=== PATIENT | female | born 1970 | race Hispanic/Latino ===

== ENCOUNTER 2021-02-04 18:24 | Inpatient (IN) | payer SELFPAY ==
[2021-02-04] MEDS ORDERED: SODIUM CHLORIDE 0.9% 1000 ML 1,000 ML IV ONE (20:01)
--- NOTE | 2021-02-04 20:19 | Event Note ---
ED Screening Note Date of service: 02/04/21 Time: 20:02 ED Screening Note: 51-year-old female patient with history of gastric bypass surgery February 2020 presents to the emergency department via EMS with complaints of near syncope occurring today. Patient states she has been experiencing similar episodes on a recurrent basis for approximately 11 months since she underwent bypass surgery. These episodes have increased in frequency. Over the course of the last week, patient has experienced 3 of these episodes. Today, patient nearly fell, prompting her to come to the emergency department. Patient has not been evaluated by primary care provider at [facility] for this issue but a definitive diagnosis has not been established. Patient states she takes no medications on a daily basis. Tachycardic in triage. Blood pressure 103/66 in triage. General: Awake, appropriately interactive, no acute distress. Appears globally weak. Neck: Supple. Full range of motion intact. Cardiovascular: Normal peripheral perfusion. Pulmonary: No respiratory distress. Patient is speaking normally without use of accessory muscles. Skin: No apparent rashes or lesions. Neurological: No facial asymmetry. Speech is clear. Follows commands. Patient is alert and oriented. Musculoskeletal: Moves all four extremities spontaneously with normal range of motion. Psych: Cooperative. Appropriate mood and affect. 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 EKG, orthostats, labs, urinalysis, chest x-ray ordered. I have greeted and performed a focused rapid initial assessment of this patient. A comprehensive ED assessment and evaluation of the patient, analysis of all test results, and completion of the medical decision-making process will be conducted by additional ED providers. This initial assessment/diagnostic orders/clinical plan/treatment(s) is/are subject to change based on patients health status, clinical progression and re-assessment. Further treatment and workup at subsequent clinical provider's discretion. Patient/guardian urged not to elope from the ED as their condition may be serious if not clinically assessed and managed.
--- NOTE | 2021-02-04 20:33 | XRay Report ---
CHEST 1 VIEW 02/04/2021 8:20 PM INDICATION / CLINICAL INFORMATION: Syncope, shortness of breath. COMPARISON: None available. FINDINGS: SUPPORT DEVICES: None. HEART / MEDIASTINUM: No significant abnormality. LUNGS / PLEURA: No significant pulmonary abnormality. No significant pleural effusion. No pneumothora x. ADDITIONAL FINDINGS: No significant additional findings. IMPRESSION: 1. No acute abnormality of the chest. Signer Name: Alberto Patterson MD Signed: 02/04/2021 8:28 PM Workstation Name: [id number]
[2021-02-04 21:08] LABS: Hematocrit 33.4 % (30.3-42.9); Hemoglobin 11.6 gm/dl (10.1-14.3); Mean Corpuscular HGB Conc 35 % (30-34); Mean Corpuscular Volume 98 fl (79-97); Platelet Count 307 K/mm3 (140-440)
[2021-02-04 21:15] LABS: Basophils % (Auto) 0.7 % (0.0-1.8); Eosinophils # (Auto) 0.1 K/mm3 (0.0-0.4); Eosinophils % (Auto) 1.9 % (0.0-4.3); Lymphocytes # (Auto) 1.5 K/mm3 (1.2-5.4); Lymphocytes % (Auto) 31.5 % (13.4-35.0); Monocytes # (Auto) 0.6 K/mm3 (0.0-0.8); Monocytes % (Auto) 12.2 % (0.0-7.3)
[2021-02-04 21:19] LABS: Total Cells Counted 100
[2021-02-04 21:20] LABS: RBC Morphology Normal
[2021-02-04 21:38] LABS: Alanine Aminotransferase 27 units/L (7-56); Albumin 2.6 g/dL (3.9-5); Blood Urea Nitrogen 8 mg/dL (7-17); Calcium 8.1 mg/dL (8.4-10.2); Hemolysis Index 0
[2021-02-04 21:41] LABS: BUN/Creatinine Ratio 13
[2021-02-04] MEDS ORDERED: POTASSIUM CHLORIDE ER 20 MEQ TAB PO ONE (21:59)
--- NOTE | 2021-02-04 22:09 | Emergency Department Report ---
ED Dizziness HPI - General Chief Complaint: Syncope Stated Complaint: SOB Time Seen by Provider: 02/04/21 21:20 Source: patient Mode of arrival: Stretcher Limitations: No Limitations - History of Present Illness Initial Comments: 51-year-old female, history of gastric bypass surgery 1 year ago, presents to ED for evaluation. Initial triage note states that patient is here for difficulty breathing. I spoke with patient and she states that she "always" has shortness of breath and that she has not had any increase in her shortness of breath. Patient told the midlevel during her medical screening that she is here for dizziness and near syncope over the past week. 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 She reports she has been dizzy since her fall. Patient reports dizziness is worse with standing. Patient also states that she has been having some trouble remembering things. Patient reports that she has had some nausea and vomiting, however it occurs after every meal, and that has been happening ever since her surgery last year. Patient reports alcohol use, denies any drug use. MD Complaint: dizziness, lightheadedness -: unknown Description: lightheadedness, near-syncope History of Trauma: Yes Severity: moderate Improves With: remaining still Worsens With: position Associated Symptoms: confusion, shortness of breath. denies: chest pain, fever/chills - Related Data Home Medications Medication Instructions Recorded Confirmed Last Taken No Known Home Medications [No 02/05/21 02/05/21 Unknown Reported Home Medications] Allergies Allergy/AdvReac Type Severity Reaction Status Date / Time No Known Allergies Allergy Unverified 02/04/21 18:30 ED Review of Systems ROS: Stated complaint: SOB Other details as noted in HPI Comment: All other systems reviewed and negative Constitutional: denies: fever Respiratory: shortness of breath Cardiovascular: denies: chest pain Gastrointestinal: nausea, vomiting Neurological: headache ED Past Medical Hx - Medications Home Medications: Home Medications Medication Instructions Recorded Confirmed Last Taken Type No Known Home Medications [No 02/05/21 02/05/21 Unknown History Reported Home Medications] ED Physical Exam - General Limitations: No Limitations General appearance: alert, in no apparent distress - Head Head exam: Present: atraumatic, normocephalic - Eye Eye exam: Present: normal appearance, EOMI - ENT ENT exam: Present: mucous membranes moist - Neck Neck exam: Present: normal inspection - Respiratory Respiratory exam: Present: normal lung sounds bilaterally. Absent: respiratory distress - Cardiovascular Cardiovascular Exam: Present: normal rhythm, tachycardia - GI/Abdominal GI/Abdominal exam: Present: soft. Absent: distended, tenderness - Extremities Exam Extremities exam: Present: normal inspection - Neurological Exam Neurological exam: Present: alert, oriented X3 (But seems somewhat confused), CN II-XII intact. Absent: motor sensory deficit - Psychiatric Psychiatric exam: Present: normal affect, normal mood - Skin Skin exam: Present: warm, dry, intact, normal color ED Course Vital Signs 02/04/21 02/04/21 02/04/21 18:28 20:47 20:53 Temperature 99.6 F Pulse Rate 103 H 99 H 118 H Respiratory 18 18 Rate Blood Pressure 134/79 Blood Pressure 103/66 [Left] O2 Sat by Pulse 98 98 98 Oximetry 02/04/21 02/05/21 02/05/21 22:30 00:30 02:00 Temperature 98 F Pulse Rate 82 82 88 Respiratory 18 18 18 Rate Blood Pressure 121/76 Blood Pressure 110/78 122/60 [Left] O2 Sat by Pulse 99 99 100 Oximetry 02/05/21 02/05/21 02/05/21 06:00 07:57 08:47 Temperature 98.6 F Pulse Rate 91 H 84 Respiratory 18 17 16 Rate Blood Pressure 133/76 Blood Pressure 124/64 114/89 [Left] O2 Sat by Pulse 100 100 Oximetry ED Medical Decision Making - Lab Data Result diagrams: 02/05/21 05:21 02/05/21 18:02 - Radiology Data Radiology results: report reviewed, image reviewed - Medical Decision Making 51-year-old female presents to ED with dizziness and lightheadedness. Patient found to have orthostatic vital signs. IV fluids administered. Patient also found to be severely hypokalemic with potassium level of 2.0. Magnesium level also low. Both were repleted. Chest x-ray and CT head negative for any acute findings. CT abdomen pelvis showed possible mild sigmoid colitis. Patient denies any abdominal pain or diarrhea. Low suspicion for colitis. Patient will be admitted to hospitalist, Dr. Clark, for further management. - Differential Diagnosis Dehydration, intracranial injury, intoxication Critical care attestation.: If time is entered above; I have spent that time in minutes in the direct care of this critically ill patient, excluding procedure time. ED Disposition Clinical Impression: Hypokalemia, Orthostatic hypotension Disposition: 09 ADMITTED INPATIENT Is pt being admited?: Yes Condition: Stable Time of Disposition: 23:41
--- NOTE | 2021-02-04 22:39 | Cat Scan Report ---
CT HEAD WITHOUT CONTRAST INDICATION / CLINICAL INFORMATION: dizziness, fall. TECHNIQUE: All CT scans at this location are performed using CT dose reduction for ALARA by means of automated exposure control. COMPARISON: None available. FINDINGS: HEMORRHAGE: None. EXTRA-AXIAL SPACES: Normal in size and morphology for the patient's age. VENTRICULAR SYSTEM: Normal in size and morphology for the patient's age. CEREBRAL PARENCHYMA: No significant abnormality. No acute territorial infarct. MIDLINE SHIFT / HERNIATION: None. CEREBELLUM / BRAINSTEM: No significant abnormality. ORBITS: Normal as visualized. SOFT TISSUES: No significant abnormality. SKULL: No significant abnormality. PARANASAL SINUSES / MASTOID AIR CELLS: There is mucosal thickening in the visualized paranasal sinuse s. ADDITIONAL FINDINGS: None. IMPRESSION: 1. No acute intracranial abnormality. 2. Paranasal sinus disease. Signer Name: Fletcher Tan DO Signed: 02/04/2021 10:35 PM Workstation Name: [id number]
--- NOTE | 2021-02-04 22:45 | Cat Scan Report ---
CT ABDOMEN AND PELVIS WITH CONTRAST INDICATION / CLINICAL INFORMATION: vomiting. TECHNIQUE: Axial CT images were obtained through the abdomen and pelvis after an unspecified amount and type of IV contrast. All CT scans at this location are performed using CT dose reduction for ALARA by means of automated exposure control. COMPARISON: None available. FINDINGS: LOWER CHEST: No significant abnormality. LIVER: There is generalized osteoporosis. A round area of focally decreased attenuation greater than that of the rest of the liver is seen posteriorly and medially along the right hepatic lobe on image 47 of series 2 measuring 3.4 x 3.2 cm. No other significant abnormality. GALLBLADDER: Prior cholecystectomy. BILE DUCTS: No significant abnormality. PANCREAS: No significant abnormality. SPLEEN: No significant abnormality. ADRENALS: No significant abnormality. KIDNEYS / URETERS: A left upper renal pole cyst measures 1.3 cm without suspicious features. No other significant abnormality. STOMACH / SMALL BOWEL: There has been prior gastric bypass surgery. No significant abnormality. COLON: There is nonspecific mild thickening of the sigmoid colon without other significant abnormalit ies. APPENDIX: No significant abnormality. PERITONEUM: No free fluid. No free air. No fluid collection. LYMPH NODES: No significant adenopathy. AORTA / ARTERIES: No significant abnormality. IVC / VEINS: No significant abnormality. URINARY BLADDER: No significant abnormality. REPRODUCTIVE ORGANS: No significant abnormality. ADDITIONAL FINDINGS: None. BONES: No acute findings. There are mild degenerative changes of the spine. IMPRESSION: 1. . Hepatic steatosis with an area of further focal decreased attenuation in the right hepatic lobe as above that is favored to represent asymmetric focal fat infiltration. A nonemergent CT or MRI with and without contrast (liver protocol) would be helpful for further evaluation. 2. Possible mild sigmoid colitis. 3. Additional findings as above. Signer Name: Alberto Patterson MD Signed: 02/04/2021 10:41 PM Workstation Name: [id number]
[2021-02-04] MEDS ORDERED: MAGNESIUM SULFATE 2 GM/50 ML BAG IV ONE (23:14)
[2021-02-04] MEDS ORDERED: ONDANSETRON 4 MG/2 ML INJ IV PRN (23:44)
[2021-02-04] MEDS ORDERED: MAGNESIUM HYDROXIDE (MOM) ORAL LIQD UDC PO PRN (23:44)
[2021-02-04] MEDS ORDERED: MORPHINE 4 MG/1 ML INJ IV PRN (23:44)
[2021-02-04] MEDS ORDERED: MORPHINE 2 MG/1 ML INJ IV PRN (23:44)
[2021-02-04] MEDS ORDERED: ACETAMINOPHEN 325 MG TAB PO PRN (23:44)
[2021-02-04] MEDS ORDERED: SODIUM CHLORIDE 0.9% 1000 ML 1,000 ML IV SCH (23:45)
--- NOTE | 2021-02-04 23:52 | History and Physical Report ---
History of Present Illness Date of examination: 02/04/21 Date of admission: 02/04/2021 Chief complaint: Lightheadedness Near syncope History of present illness: 51-year-old white female with known history of gastric bypass about a year ago presenting to the emergency room today complaining of dizziness, shortness of breath and near syncope. Symptoms has been ongoing for about a week. Patient states she feels dizzy while standing. She has had nausea and vomiting over the past few days and intermittent bouts of diarrhea. She also indicates that she has had low-grade fever at home. She denies any headache and no diaphoresis. Patient denies any cough or chest pain. No hematuria or dysuria. Patient has been in contact with her family member who has had flu-like symptoms lately but denies any recent travel. Patient admits that she has not been vaccinated against COVID-19. Upon arrival in the emergency room patient was found to be slightly tachycardic and also orthostatic. Work-up in the emergency room today reveals hypokalemia of 2.0, hypomagnesemia of 1.5 and mild metabolic acidosis. Chest x-ray and CT scan of the head were unremarkable. CT of the abdomen and pelvis shows possible mild sigmoid colitis. Past History Past Medical History: No medical history Past Surgical History: No surgical history Social history: no significant social history Medications and Allergies Allergies Allergy/AdvReac Type Severity Reaction Status Date / Time No Known Allergies Allergy Unverified 02/04/21 18:30 Home Medications Medication Instructions Recorded Confirmed Last Taken Type No Known Home Medications [No 02/05/21 02/05/21 Unknown History Reported Home Medications] Active Meds: Active Medications Acetaminophen (Acetaminophen 325 Mg Tab) 650 mg PO Q4H PRN PRN Reason: Pain MILD(1-3)/Fever >100.5/SAENZ Heparin Sodium (Porcine) (Heparin 5,000 Unit/1 Ml Vial) 5,000 unit SUB-Q Q8HR [place] Sodium Chloride (Nacl 0.9% 1000 Ml) 1,000 mls @ 125 mls/hr IV DIRECT [place] Magnesium Hydroxide (Magnesium Hydroxide (Mom) Oral Liqd Udc) 30 ml PO Q4H PRN PRN Reason: Constipation Morphine Sulfate (Morphine 2 Mg/1 Ml Inj) 2 mg IV Q4H PRN PRN Reason: Pain, Moderate (4-6) Morphine Sulfate (Morphine 4 Mg/1 Ml Inj) 4 mg IV Q4H PRN PRN Reason: Pain , Severe (7-10) Ondansetron HCl (Ondansetron 4 Mg/2 Ml Inj) 4 mg IV Q8H PRN PRN Reason: Nausea And Vomiting Sodium Chloride (Sodium Chloride 0.9% 10 Ml Flush Syringe) 10 ml IV BID [place] Sodium Chloride (Sodium Chloride 0.9% 10 Ml Flush Syringe) 10 ml IV PRN PRN PRN Reason: LINE FLUSH Review of Systems Constitutional: no fever, no chills Ears, nose, mouth and throat: no nasal congestion, no sore throat Cardiovascular: no chest pain, no palpitations Respiratory: no cough, no shortness of breath Gastrointestinal: nausea, vomiting, diarrhea, hematemesis, no abdominal pain, no hematochezia Genitourinary Female: no pelvic pain, no flank pain, no dysuria, no hematuria Musculoskeletal: no neck pain, no low back pain Integumentary: no rash, no pruritis Neurological: syncope, no headaches, no confusion Psychiatric: no anxiety, no depression Endocrine: no polyphagia, no polydipsia, no polyuria, no nocturia Exam - Constitutional Vitals: Temp Pulse Resp BP Pulse Ox 99.6 F 118 H 18 134/79 98 02/04/21 18:28 02/04/21 20:53 02/04/21 20:47 02/04/21 20:47 02/04/21 20:53 General appearance: Present: no acute distress, well-nourished - EENT Eyes: Present: PERRL, EOM intact, scleral icterus ENT: hearing intact, clear oral mucosa, dentition normal - Neck Neck: Present: supple, normal ROM - Respiratory Respiratory effort: normal Respiratory: bilateral: CTA - Cardiovascular Rhythm: regular Heart Sounds: Present: S1 & S2. Absent: gallop, systolic murmur, diastolic murmur, rub, click - Extremities Extremities: no ischemia, pulses intact, pulses symmetrical, No edema, normal temperature, normal color, Full ROM Peripheral Pulses: within normal limits - Abdominal General gastrointestinal: Present: soft, non-tender, non-distended, normal bowel sounds. Absent: mass - Integumentary Integumentary: Present: clear, warm, dry, normal turgor. Absent: rash - Musculoskeletal Musculoskeletal: strength equal bilaterally - Psychiatric Psychiatric: appropriate mood/affect, intact judgment & insight, memory intact, cooperative - Neurologic Neurologic: CNII-XII intact, no focal deficits, moves all extremities HEART Score - HEART Score Troponin: Troponin T < 0.010 ng/mL (0.00-0.029) 02/04/21 20:42 Results - Labs CBC & Chem 7: 02/05/21 05:21 02/05/21 18:02 Labs: Abnormal lab results 02/04/21 02/04/21 02/04/21 Range/Units 20:42 20:42 22:29 RBC 3.40 L (3.65-5.03) M/mm3 MCV 98 H (79-97) fl MCH 34 H (28-32) pg MCHC 35 H (30-34) % [place] % (Auto) 12.2 H (0.0-7.3) % Monocytes % (Manual) 13.0 H (0.0-7.3) % Potassium 2.0 L* (3.6-5.0) mmol/L Carbon Dioxide 17 L (22-30) mmol/L Glucose 128 H (65-100) mg/dL Calcium 8.1 L (8.4-10.2) mg/dL Magnesium 1.40 L 1.50 L (1.7-2.3) mg/dL AST 81 H (5-40) units/L Albumin 2.6 L (3.9-5) g/dL Salicylates (2.8-20.0) mg/dL Acetaminophen (10.0-30.0) ug/mL 02/04/21 02/04/21 Range/Units 22:29 22:29 RBC (3.65-5.03) M/mm3 MCV (79-97) fl MCH (28-32) pg MCHC (30-34) % [place] % (Auto) (0.0-7.3) % Monocytes % (Manual) (0.0-7.3) % Potassium (3.6-5.0) mmol/L Carbon Dioxide (22-30) mmol/L Glucose (65-100) mg/dL Calcium (8.4-10.2) mg/dL Magnesium (1.7-2.3) mg/dL AST (5-40) units/L Albumin (3.9-5) g/dL Salicylates < 0.3 L (2.8-20.0) mg/dL Acetaminophen 5.0 L (10.0-30.0) ug/mL Assessment and Plan - Patient Problems (1) Orthostatic hypotension Current Visit: No Status: Inactive Plan to address problem: Possibly secondary to volume depletion. We will monitor vital signs closely. Patient will be placed on IV fluid. (2) Hypokalemia Current Visit: No Status: Inactive Plan to address problem: Potassium will be repleted and will monitor chemistry. (3) Hypomagnesemia Current Visit: No Status: Acute Plan to address problem: Magnesium will be repleted and will monitor magnesium level. (4) Colitis Current Visit: No Status: Acute Plan to address problem: We will continue patient on IV fluid. May consider initiation of antibiotics and GI consult if diarrhea does not subside. (5) DVT prophylaxis Current Visit: No Status: Acute Plan to address problem: Patient placed on subcutaneous heparin. (6) Full code status Current Visit: No Status: Acute Plan to address problem: Patient is full code.
[2021-02-05] MEDS: HEPARIN 5,000 UNIT/1 ML VIAL SUB-Q SCH ×3 (06:00→23:03)
[2021-02-05 06:11] LABS: Basophils % (Auto) 0.9 % (0.0-1.8); Eosinophils # (Auto) 0.1 K/mm3 (0.0-0.4); Eosinophils % (Auto) 2.5 % (0.0-4.3); Hematocrit 30.8 % (30.3-42.9); Hemoglobin 10.2 gm/dl (10.1-14.3); Lymphocytes # (Auto) 1.5 K/mm3 (1.2-5.4); Lymphocytes % (Auto) 34.1 % (13.4-35.0); Mean Corpuscular HGB Conc 33 % (30-34); Mean Corpuscular Volume 99 fl (79-97); Monocytes # (Auto) 0.5 K/mm3 (0.0-0.8); Monocytes % (Auto) 11.8 % (0.0-7.3); Platelet Count 276 K/mm3 (140-440); Red Blood Count 3.12 M/mm3 (3.65-5.03); Red Cell Distribution Width 15.1 % (13.2-15.2)
[2021-02-05 06:25] LABS: Blood Urea Nitrogen 7 mg/dL (7-17); Calcium 7.5 mg/dL (8.4-10.2); Hemolysis Index 3
[2021-02-05 06:26] LABS: BUN/Creatinine Ratio 18
[2021-02-05 06:29] LABS: INR 0.93 (0.87-1.13)
--- NOTE | 2021-02-05 08:59 | Progress Note ---
Assessment and Plan Assessment and plan: Acute colitis. Orthostatic hypotension Severe hypokalemia Hypomagnesemia 02/05/2021. CT scan of the abdomen pelvis revealed mild sigmoid colitis. We will start IV antibiotics of Levaquin and Flagyl. Follow-up stool culture and fecal leukocytes. Patient will have repletion of potassium and follow-up BMP later today and in a.m. Continue IV fluid hydration for orthostasis. Magnesium repleted. Anticipate discharge in a.m. History Interval history: No new issues overnight Hospitalist Physical - Constitutional Vitals: Temp Pulse Resp BP Pulse Ox 98.6 F 84 16 133/76 100 02/05/21 08:47 02/05/21 07:57 02/05/21 08:47 02/05/21 08:47 02/05/21 07:57 General appearance: Present: no acute distress, well-nourished - EENT Eyes: Present: PERRL, EOM intact ENT: hearing intact, clear oral mucosa, dentition normal - Neck Neck: Present: supple, normal ROM - Respiratory Respiratory effort: normal Respiratory: bilateral: CTA - Cardiovascular Rhythm: regular Heart Sounds: Present: S1 & S2. Absent: gallop, rub - Extremities Extremities: no ischemia, No edema, Full ROM - Abdominal General gastrointestinal: soft, non-tender, non-distended, normal bowel sounds - Integumentary Integumentary: Present: clear, warm, dry - Neurologic Neurologic: CNII-XII intact, moves all extremities HEART Score - HEART Score Troponin: Troponin T < 0.010 ng/mL (0.00-0.029) 02/04/21 20:42 Results - Labs CBC & Chem 7: 02/05/21 05:21 02/05/21 05:21 Labs: Laboratory Last Values WBC 4.5 K/mm3 (4.5-11.0) 02/05/21 05:21 RBC 3.12 M/mm3 (3.65-5.03) L 02/05/21 05:21 Hgb 10.2 gm/dl (10.1-14.3) 02/05/21 05:21 Hct 30.8 % (30.3-42.9) 02/05/21 05:21 MCV 99 fl (79-97) H 02/05/21 05:21 MCH 33 pg (28-32) H 02/05/21 05:21 MCHC 33 % (30-34) 02/05/21 05:21 RDW 15.1 % (13.2-15.2) 02/05/21 05:21 Plt Count 276 K/mm3 (140-440) 02/05/21 05:21 Lymph % (Auto) 34.1 % (13.4-35.0) 02/05/21 05:21 [place] % (Auto) 11.8 % (0.0-7.3) H 02/05/21 05:21 Eos % (Auto) 2.5 % (0.0-4.3) 02/05/21 05:21 Baso % (Auto) 0.9 % (0.0-1.8) 02/05/21 05:21 Lymph # (Auto) 1.5 K/mm3 (1.2-5.4) 02/05/21 05:21 [place] # (Auto) 0.5 K/mm3 (0.0-0.8) 02/05/21 05:21 Eos # (Auto) 0.1 K/mm3 (0.0-0.4) 02/05/21 05:21 Baso # (Auto) 0.0 K/mm3 (0.0-0.1) 02/05/21 05:21 Add Manual Diff Complete 02/04/21 20:42 Total Counted 100 02/04/21 20:42 Seg Neutrophils % 50.7 % (40.0-70.0) 02/05/21 05:21 Seg Neuts % (Manual) 50.0 % (40.0-70.0) 02/04/21 20:42 Lymphocytes % (Manual) 34.0 % (13.4-35.0) 02/04/21 20:42 Monocytes % (Manual) 13.0 % (0.0-7.3) H 02/04/21 20:42 Eosinophils % (Manual) 2.0 % (0.0-4.3) 02/04/21 20:42 Basophils % (Manual) 1.0 % (0.0-1.8) 02/04/21 20:42 Nucleated RBC % Not Reportable 02/04/21 20:42 Seg Neutrophils # 2.3 K/mm3 (1.8-7.7) 02/05/21 05:21 Seg Neutrophils # Man 2.5 K/mm3 (1.8-7.7) 02/04/21 20:42 Band Neutrophils # 0.0 K/mm3 02/04/21 20:42 Lymphocytes # (Manual) 1.7 K/mm3 (1.2-5.4) 02/04/21 20:42 Abs React Lymphs (Man) 0.0 K/mm3 02/04/21 20:42 Monocytes # (Manual) 0.6 K/mm3 (0.0-0.8) 02/04/21 20:42 Eosinophils # (Manual) 0.1 K/mm3 (0.0-0.4) 02/04/21 20:42 Basophils # (Manual) 0.0 K/mm3 (0.0-0.1) 02/04/21 20:42 Metamyelocytes # 0.0 K/mm3 02/04/21 20:42 Myelocytes # 0.0 K/mm3 02/04/21 20:42 Promyelocytes # 0.0 K/mm3 02/04/21 20:42 Blast Cells # 0.0 K/mm3 02/04/21 20:42 WBC Morphology Not Reportable 02/04/21 20:42 Hypersegmented Neuts Not Reportable 02/04/21 20:42 Hyposegmented Neuts Not Reportable 02/04/21 20:42 Hypogranular Neuts Not Reportable 02/04/21 20:42 Smudge Cells Not Reportable 02/04/21 20:42 Toxic Granulation Not Reportable 02/04/21 20:42 Toxic Vacuolation Not Reportable 02/04/21 20:42 Dohle Bodies Not Reportable 02/04/21 20:42 Pelger-Huet Anomaly Not Reportable 02/04/21 20:42 Yadira Rods Not Reportable 02/04/21 20:42 Platelet Estimate Not Reportable 02/04/21 20:42 Clumped Platelets Not Reportable 02/04/21 20:42 Plt Clumps, EDTA Not Reportable 02/04/21 20:42 Large Platelets Not Reportable 02/04/21 20:42 Giant Platelets Not Reportable 02/04/21 20:42 Platelet Satelliting Not Reportable 02/04/21 20:42 Plt Morphology Comment Not Reportable 02/04/21 20:42 RBC Morphology Normal 02/04/21 20:42 Dimorphic RBCs Not Reportable 02/04/21 20:42 Polychromasia Not Reportable 02/04/21 20:42 Hypochromasia Not Reportable 02/04/21 20:42 Poikilocytosis Not Reportable 02/04/21 20:42 Anisocytosis Not Reportable 02/04/21 20:42 Microcytosis Not Reportable 02/04/21 20:42 Macrocytosis Not Reportable 02/04/21 20:42 Spherocytes Not Reportable 02/04/21 20:42 Pappenheimer Bodies Not Reportable 02/04/21 20:42 Sickle Cells Not Reportable 02/04/21 20:42 Target Cells Not Reportable 02/04/21 20:42 Tear Drop Cells Not Reportable 02/04/21 20:42 Ovalocytes Not Reportable 02/04/21 20:42 Helmet Cells Not Reportable 02/04/21 20:42 Edwards-[place] Bodies Not Reportable 02/04/21 20:42 [place] Rings Not Reportable 02/04/21 20:42 [place] Cells Not Reportable 02/04/21 20:42 Bite Cells Not Reportable 02/04/21 20:42 Crenated Cell Not Reportable 02/04/21 20:42 Elliptocytes Not Reportable 02/04/21 20:42 Acanthocytes (Spur) Not Reportable 02/04/21 20:42 Rouleaux Not Reportable 02/04/21 20:42 Hemoglobin C Crystals Not Reportable 02/04/21 20:42 Schistocytes Not Reportable 02/04/21 20:42 Malaria parasites Not Reportable 02/04/21 20:42 [place] Bodies Not Reportable 02/04/21 20:42 Hem Pathologist Commnt No 02/04/21 20:42 PT 13.5 Sec. (12.2-14.9) 02/05/21 05:21 INR 0.93 (0.87-1.13) 02/05/21 05:21 Sodium 139 mmol/L (137-145) 02/05/21 05:21 Potassium 2.2 mmol/L (3.6-5.0) L* 02/05/21 05:21 Chloride 105.1 mmol/L (98-107) 02/05/21 05:21 Carbon Dioxide 18 mmol/L (22-30) L 02/05/21 05:21 Anion Gap 18 mmol/L 02/05/21 05:21 BUN 7 mg/dL (7-17) 02/05/21 05:21 Creatinine 0.4 mg/dL (0.6-1.2) L 02/05/21 05:21 Estimated GFR > 60 ml/min 02/05/21 05:21 BUN/Creatinine Ratio 18 % 02/05/21 05:21 Glucose 101 mg/dL (65-100) H 02/05/21 05:21 Calcium 7.5 mg/dL (8.4-10.2) L 02/05/21 05:21 Phosphorus 3.00 mg/dL (2.5-4.5) 02/04/21 20:42 Magnesium 1.50 mg/dL (1.7-2.3) L 02/04/21 22:29 Total Bilirubin 1.20 mg/dL (0.1-1.2) 02/04/21 20:42 AST 81 units/L (5-40) H 02/04/21 20:42 ALT 27 units/L (7-56) 02/04/21 20:42 Alkaline Phosphatase 104 units/L (35-129) 02/04/21 20:42 Troponin T < 0.010 ng/mL (0.00-0.029) 02/04/21 20:42 Total Protein 7.0 g/dL (6.3-8.2) 02/04/21 20:42 Albumin 2.6 g/dL (3.9-5) L 02/04/21 20:42 Albumin/Globulin Ratio 0.6 % 02/04/21 20:42 Salicylates < 0.3 mg/dL (2.8-20.0) L 02/04/21 22:29 Acetaminophen 5.0 ug/mL (10.0-30.0) L 02/04/21 22:29 Plasma/Serum Alcohol < 0.01 % (0-0.07) 02/04/21 22:29 Active Medications - Current Medications Current Medications: Generic Name Dose Route Start Last Admin Trade Name Freq PRN Reason Stop Dose Admin Acetaminophen 650 mg 02/04/21 23:44 Acetaminophen 325 Mg Tab PO Q4H PRN Pain MILD(1-3)/Fever >100.5/SAENZ Heparin Sodium (Porcine) 5,000 unit 02/05/21 06:00 02/05/21 06:00 Heparin 5,000 Unit/1 Ml Vial SUB-Q 5,000 unit Q8HR [place] Administration Sodium Chloride 1,000 mls @ 125 mls/hr 02/04/21 23:45 Nacl 0.9% 1000 Ml IV DIRECT [place] Metronidazole 500 mg in 100 mls @ 100 mls/hr 02/05/21 08:00 Flagyl 500 Mg/100 Ml IV Q8H [place] Protocol Levofloxacin/Dextrose 500 mg in 100 mls @ 100 mls/hr 02/05/21 08:00 Levaquin 500mg/100ml IV Q24H [place] Protocol Potassium Chloride/Sodium Chloride 40 meq in 1,000 mls @ 75 mls/hr 02/05/21 08:00 Ns/Kcl 40meq IV DIRECT [place] Magnesium Hydroxide 30 ml 02/04/21 23:44 Magnesium Hydroxide (Mom) Oral Liqd Udc PO Q4H PRN Constipation Morphine Sulfate 2 mg 02/04/21 23:44 Morphine 2 Mg/1 Ml Inj IV Q4H PRN Pain, Moderate (4-6) Morphine Sulfate 4 mg 02/04/21 23:44 Morphine 4 Mg/1 Ml Inj IV Q4H PRN Pain , Severe (7-10) Ondansetron HCl 4 mg 02/04/21 23:44 Ondansetron 4 Mg/2 Ml Inj IV Q8H PRN Nausea And Vomiting Sodium Chloride 10 ml 02/05/21 10:00 Sodium Chloride 0.9% 10 Ml Flush Syringe IV BID [place] Sodium Chloride 10 ml 02/04/21 23:44 Sodium Chloride 0.9% 10 Ml Flush Syringe IV PRN PRN LINE FLUSH
[2021-02-05] MEDS: NACL 0.9%/KCL 40 MEQ 40 MEQ/1,000 ML BAG IV SCH (09:16)
[2021-02-05] MEDS ORDERED: POTASSIUM CHLORIDE ER 20 MEQ TAB PO NR ×3 (09:30→20:00)
[2021-02-05] MEDS: metroNIDAZOLE/NS 500 MG/100 ML 500 MG/100 ML BAG IV SCH ×2 (14:07→23:03)
[2021-02-05 17:27] LABS: Alanine Aminotransferase TNR units/L (7-56); Albumin TNR g/dL (3.9-5); BUN/Creatinine Ratio TNR; Blood Urea Nitrogen TNR mg/dL (7-17); Calcium TNR mg/dL (8.4-10.2)
[2021-02-05 17:28] LABS: Hemolysis Index TNR
[2021-02-05 18:25] LABS: Alanine Aminotransferase 25 units/L (7-56); Albumin 2.6 g/dL (3.9-5); Blood Urea Nitrogen 5 mg/dL (7-17); Calcium 7.9 mg/dL (8.4-10.2); Hemolysis Index 7
[2021-02-05 18:29] LABS: BUN/Creatinine Ratio 10
[2021-02-05] MEDS: guaiFENesin DM 200/20 MG ORAL LIQD 10 ML PO PRN (23:01)
[2021-02-06] MEDS: guaiFENesin DM 200/20 MG ORAL LIQD 10 ML PO PRN (02:42)
[2021-02-06] MEDS: metroNIDAZOLE/NS 500 MG/100 ML 500 MG/100 ML BAG IV SCH ×3 (06:15→16:56)
[2021-02-06] MEDS: HEPARIN 5,000 UNIT/1 ML VIAL SUB-Q SCH ×3 (06:23→22:18)
[2021-02-06] MEDS: NACL 0.9%/KCL 40 MEQ 40 MEQ/1,000 ML BAG IV SCH (06:24)
[2021-02-06] MEDS ORDERED: POTASSIUM CHLORIDE ER 20 MEQ TAB PO ONE (07:30)
[2021-02-06] MEDS ORDERED: MAGNESIUM SULFATE 3 GM in SODIUM CHLORIDE 0.9% 100 ML IV NR (08:00)
--- NOTE | 2021-02-06 08:45 | Progress Note ---
Assessment and Plan Assessment and plan: Acute colitis. Orthostatic hypotension Severe hypokalemia Hypomagnesemia 02/05/2021. CT scan of the abdomen pelvis revealed mild sigmoid colitis. We will start IV antibiotics of Levaquin and Flagyl. Follow-up stool culture and fecal leukocytes. Patient will have repletion of potassium and follow-up BMP later today and in a.m. Continue IV fluid hydration for orthostasis. Magnesium repleted. Anticipate discharge in a.m. 02/06/2021. Patient denies any diarrhea. We'll follow-up stool studies continue IV antibiotics of Levaquin and Flagyl. Patient still has significant hypokalemia. Replete potassium and follow-up BMP. Replete magnesium. Patient remains orthostatic. Continue IV fluid hydration and recheck orthostatic vital signs. History Interval history: No new issues overnight Hospitalist Physical - Constitutional Vitals: Temp Pulse Resp BP Pulse Ox 97.7 F 89 17 125/85 99 02/06/21 04:10 02/06/21 04:10 02/06/21 04:10 02/06/21 04:10 02/06/21 04:10 General appearance: Present: no acute distress, well-nourished - EENT Eyes: Present: PERRL, EOM intact ENT: hearing intact, clear oral mucosa, dentition normal - Neck Neck: Present: supple, normal ROM - Respiratory Respiratory effort: normal Respiratory: bilateral: CTA - Cardiovascular Rhythm: regular Heart Sounds: Present: S1 & S2. Absent: gallop, rub - Extremities Extremities: no ischemia, No edema, Full ROM - Abdominal General gastrointestinal: soft, non-tender, non-distended, normal bowel sounds - Integumentary Integumentary: Present: clear, warm, dry - Neurologic Neurologic: CNII-XII intact, moves all extremities HEART Score - HEART Score Troponin: Troponin T < 0.010 ng/mL (0.00-0.029) 02/04/21 20:42 Results - Labs CBC & Chem 7: 02/05/21 05:21 02/05/21 18:02 Labs: Laboratory Last Values WBC 4.5 K/mm3 (4.5-11.0) 02/05/21 05:21 RBC 3.12 M/mm3 (3.65-5.03) L 02/05/21 05:21 Hgb 10.2 gm/dl (10.1-14.3) 02/05/21 05:21 Hct 30.8 % (30.3-42.9) 02/05/21 05:21 MCV 99 fl (79-97) H 02/05/21 05:21 MCH 33 pg (28-32) H 02/05/21 05:21 MCHC 33 % (30-34) 02/05/21 05:21 RDW 15.1 % (13.2-15.2) 02/05/21 05:21 Plt Count 276 K/mm3 (140-440) 02/05/21 05:21 Lymph % (Auto) 34.1 % (13.4-35.0) 02/05/21 05:21 [place] % (Auto) 11.8 % (0.0-7.3) H 02/05/21 05:21 Eos % (Auto) 2.5 % (0.0-4.3) 02/05/21 05:21 Baso % (Auto) 0.9 % (0.0-1.8) 02/05/21 05:21 Lymph # (Auto) 1.5 K/mm3 (1.2-5.4) 02/05/21 05:21 [place] # (Auto) 0.5 K/mm3 (0.0-0.8) 02/05/21 05:21 Eos # (Auto) 0.1 K/mm3 (0.0-0.4) 02/05/21 05:21 Baso # (Auto) 0.0 K/mm3 (0.0-0.1) 02/05/21 05:21 Add Manual Diff Complete 02/04/21 20:42 Total Counted 100 02/04/21 20:42 Seg Neutrophils % 50.7 % (40.0-70.0) 02/05/21 05:21 Seg Neuts % (Manual) 50.0 % (40.0-70.0) 02/04/21 20:42 Lymphocytes % (Manual) 34.0 % (13.4-35.0) 02/04/21 20:42 Monocytes % (Manual) 13.0 % (0.0-7.3) H 02/04/21 20:42 Eosinophils % (Manual) 2.0 % (0.0-4.3) 02/04/21 20:42 Basophils % (Manual) 1.0 % (0.0-1.8) 02/04/21 20:42 Nucleated RBC % Not Reportable 02/04/21 20:42 Seg Neutrophils # 2.3 K/mm3 (1.8-7.7) 02/05/21 05:21 Seg Neutrophils # Man 2.5 K/mm3 (1.8-7.7) 02/04/21 20:42 Band Neutrophils # 0.0 K/mm3 02/04/21 20:42 Lymphocytes # (Manual) 1.7 K/mm3 (1.2-5.4) 02/04/21 20:42 Abs React Lymphs (Man) 0.0 K/mm3 02/04/21 20:42 Monocytes # (Manual) 0.6 K/mm3 (0.0-0.8) 02/04/21 20:42 Eosinophils # (Manual) 0.1 K/mm3 (0.0-0.4) 02/04/21 20:42 Basophils # (Manual) 0.0 K/mm3 (0.0-0.1) 02/04/21 20:42 Metamyelocytes # 0.0 K/mm3 02/04/21 20:42 Myelocytes # 0.0 K/mm3 02/04/21 20:42 Promyelocytes # 0.0 K/mm3 02/04/21 20:42 Blast Cells # 0.0 K/mm3 02/04/21 20:42 WBC Morphology Not Reportable 02/04/21 20:42 Hypersegmented Neuts Not Reportable 02/04/21 20:42 Hyposegmented Neuts Not Reportable 02/04/21 20:42 Hypogranular Neuts Not Reportable 02/04/21 20:42 Smudge Cells Not Reportable 02/04/21 20:42 Toxic Granulation Not Reportable 02/04/21 20:42 Toxic Vacuolation Not Reportable 02/04/21 20:42 Dohle Bodies Not Reportable 02/04/21 20:42 Pelger-Huet Anomaly Not Reportable 02/04/21 20:42 Yadira Rods Not Reportable 02/04/21 20:42 Platelet Estimate Not Reportable 02/04/21 20:42 Clumped Platelets Not Reportable 02/04/21 20:42 Plt Clumps, EDTA Not Reportable 02/04/21 20:42 Large Platelets Not Reportable 02/04/21 20:42 Giant Platelets Not Reportable 02/04/21 20:42 Platelet Satelliting Not Reportable 02/04/21 20:42 Plt Morphology Comment Not Reportable 02/04/21 20:42 RBC Morphology Normal 02/04/21 20:42 Dimorphic RBCs Not Reportable 02/04/21 20:42 Polychromasia Not Reportable 02/04/21 20:42 Hypochromasia Not Reportable 02/04/21 20:42 Poikilocytosis Not Reportable 02/04/21 20:42 Anisocytosis Not Reportable 02/04/21 20:42 Microcytosis Not Reportable 02/04/21 20:42 Macrocytosis Not Reportable 02/04/21 20:42 Spherocytes Not Reportable 02/04/21 20:42 Pappenheimer Bodies Not Reportable 02/04/21 20:42 Sickle Cells Not Reportable 02/04/21 20:42 Target Cells Not Reportable 02/04/21 20:42 Tear Drop Cells Not Reportable 02/04/21 20:42 Ovalocytes Not Reportable 02/04/21 20:42 Helmet Cells Not Reportable 02/04/21 20:42 Edwards-[place] Bodies Not Reportable 02/04/21 20:42 [place] Rings Not Reportable 02/04/21 20:42 [place] Cells Not Reportable 02/04/21 20:42 Bite Cells Not Reportable 02/04/21 20:42 Crenated Cell Not Reportable 02/04/21 20:42 Elliptocytes Not Reportable 02/04/21 20:42 Acanthocytes (Spur) Not Reportable 02/04/21 20:42 Rouleaux Not Reportable 02/04/21 20:42 Hemoglobin C Crystals Not Reportable 02/04/21 20:42 Schistocytes Not Reportable 02/04/21 20:42 Malaria parasites Not Reportable 02/04/21 20:42 [place] Bodies Not Reportable 02/04/21 20:42 Hem Pathologist Commnt No 02/04/21 20:42 PT 13.5 Sec. (12.2-14.9) 02/05/21 05:21 INR 0.93 (0.87-1.13) 02/05/21 05:21 Sodium 139 mmol/L (137-145) 02/05/21 18:02 Potassium 2.7 mmol/L (3.6-5.0) L* D 02/05/21 18:02 Chloride 107.4 mmol/L (98-107) H 02/05/21 18:02 Carbon Dioxide 19 mmol/L (22-30) L 02/05/21 18:02 Anion Gap 15 mmol/L 02/05/21 18:02 BUN 5 mg/dL (7-17) L 02/05/21 18:02 Creatinine 0.5 mg/dL (0.6-1.2) L 02/05/21 18:02 Estimated GFR > 60 ml/min 02/05/21 18:02 BUN/Creatinine Ratio 10 % 02/05/21 18:02 Glucose 122 mg/dL (65-100) H 02/05/21 18:02 Calcium 7.9 mg/dL (8.4-10.2) L 02/05/21 18:02 Phosphorus 3.00 mg/dL (2.5-4.5) 02/04/21 20:42 Magnesium 1.50 mg/dL (1.7-2.3) L 02/04/21 22:29 Total Bilirubin 0.90 mg/dL (0.1-1.2) 02/05/21 18:02 AST 70 units/L (5-40) H 02/05/21 18:02 ALT 25 units/L (7-56) 02/05/21 18:02 Alkaline Phosphatase 98 units/L (35-129) 02/05/21 18:02 Troponin T < 0.010 ng/mL (0.00-0.029) 02/04/21 20:42 Total Protein 6.4 g/dL (6.3-8.2) 02/05/21 18:02 Albumin 2.6 g/dL (3.9-5) L 02/05/21 18:02 Albumin/Globulin Ratio 0.7 % 02/05/21 18:02 Salicylates < 0.3 mg/dL (2.8-20.0) L 02/04/21 22:29 Acetaminophen 5.0 ug/mL (10.0-30.0) L 02/04/21 22:29 Plasma/Serum Alcohol < 0.01 % (0-0.07) 02/04/21 22:29 [place]/IV: Voiding Method Toilet Active Medications - Current Medications Current Medications: Generic Name Dose Route Start Last Admin Trade Name Freq PRN Reason Stop Dose Admin Acetaminophen 650 mg 02/04/21 23:44 Acetaminophen 325 Mg Tab PO Q4H PRN Pain MILD(1-3)/Fever >100.5/SAENZ Guaifenesin 10 ml 02/05/21 20:49 02/06/21 02:42 Guaifenesin Dm 200/20 Mg Oral Liqd 10 Ml PO 10 ml Q4H PRN Administration Cough Heparin Sodium (Porcine) 5,000 unit 02/05/21 06:00 02/06/21 06:23 Heparin 5,000 Unit/1 Ml Vial SUB-Q 5,000 unit Q8HR [place] Administration Sodium Chloride 1,000 mls @ 125 mls/hr 02/04/21 23:45 Nacl 0.9% 1000 Ml IV DIRECT [place] Metronidazole 500 mg in 100 mls @ 100 mls/hr 02/05/21 08:00 02/06/21 06:15 Flagyl 500 Mg/100 Ml IV Not Given Q8H [place] Protocol Levofloxacin/Dextrose 500 mg in 100 mls @ 100 mls/hr 02/05/21 08:00 02/05/21 11:52 Levaquin 500mg/100ml IV 100 mls/hr Q24H [place] Administration Protocol Potassium Chloride/Sodium Chloride 40 meq in 1,000 mls @ 75 mls/hr 02/05/21 08:00 02/06/21 06:24 Ns/Kcl 40meq IV 75 mls/hr DIRECT [place] Administration Magnesium Sulfate 3 gm/ Sodium 106 mls @ 35.333 mls/hr 02/06/21 08:00 Chloride IV 02/06/21 11:00 ONCE@0800 NR Magnesium Hydroxide 30 ml 02/04/21 23:44 Magnesium Hydroxide (Mom) Oral Liqd Udc PO Q4H PRN Constipation Morphine Sulfate 2 mg 02/04/21 23:44 Morphine 2 Mg/1 Ml Inj IV Q4H PRN Pain, Moderate (4-6) Morphine Sulfate 4 mg 02/04/21 23:44 Morphine 4 Mg/1 Ml Inj IV Q4H PRN Pain , Severe (7-10) Ondansetron HCl 4 mg 02/04/21 23:44 Ondansetron 4 Mg/2 Ml Inj IV Q8H PRN Nausea And Vomiting Potassium Chloride 40 meq 02/06/21 15:00 Potassium Chloride Er 20 Meq Tab PO 02/06/21 15:10 ONCE@1200 NR Potassium Chloride 40 meq 02/06/21 10:30 Potassium Chloride Er 20 Meq Tab PO 02/06/21 13:00 ONCE@1030 NR Sodium Chloride 10 ml 02/05/21 10:00 02/05/21 23:04 Sodium Chloride 0.9% 10 Ml Flush Syringe IV 10 ml BID [place] Administration Sodium Chloride 10 ml 02/04/21 23:44 02/06/21 06:23 Sodium Chloride 0.9% 10 Ml Flush Syringe IV 10 ml PRN PRN Administration LINE FLUSH
[2021-02-06] MEDS ORDERED: POTASSIUM CHLORIDE ER 20 MEQ TAB PO NR ×2 (10:30→15:00)
[2021-02-06 14:49] LABS: BUN/Creatinine Ratio 6; Blood Urea Nitrogen 3 mg/dL (7-17); Calcium 7.9 mg/dL (8.4-10.2); Hemolysis Index 0
[2021-02-07] MEDS: metroNIDAZOLE/NS 500 MG/100 ML 500 MG/100 ML BAG IV SCH ×4 (00:14→23:27)
[2021-02-07] MEDS: MELATONIN 5 MG TAB PO PRN ×2 (01:08→23:36)
[2021-02-07] MEDS: NACL 0.9%/KCL 40 MEQ 40 MEQ/1,000 ML BAG IV SCH ×2 (03:33→19:30)
[2021-02-07] MEDS: HEPARIN 5,000 UNIT/1 ML VIAL SUB-Q SCH ×3 (05:47→21:29)
[2021-02-07 08:37] LABS: Blood Urea Nitrogen 3 mg/dL (7-17); Calcium 7.8 mg/dL (8.4-10.2); Hemolysis Index 3
--- NOTE | 2021-02-07 08:40 | Progress Note ---
Assessment and Plan Assessment and plan: Acute colitis. Orthostatic hypotension Severe hypokalemia Hypomagnesemia 02/05/2021. CT scan of the abdomen pelvis revealed mild sigmoid colitis. We will start IV antibiotics of Levaquin and Flagyl. Follow-up stool culture and fecal leukocytes. Patient will have repletion of potassium and follow-up BMP later today and in a.m. Continue IV fluid hydration for orthostasis. Magnesium repleted. Anticipate discharge in a.m. 02/06/2021. Patient denies any diarrhea. We'll follow-up stool studies continue IV antibiotics of Levaquin and Flagyl. Patient still has significant hypokalemia. Replete potassium and follow-up BMP. Replete magnesium. Patient remains orthostatic. Continue IV fluid hydration and recheck orthostatic vital signs. 02/07/2021. Potassium improved to 3.2 yesterday. Recheck BMP this morning. Continue to replete potassium and magnesium as needed. Still awaiting stool studies for fecal leukocyte and culture. Continue IV antibiotics of Flagyl and Levaquin. Patient still with significant orthostasis this morning. Continue IV fluid hydration. History Interval history: No new issues overnight. Nurse reports patient with significant diarrhea approximately 1 diarrheal stool per hour. Hospitalist Physical - Constitutional Vitals: Temp Pulse Resp BP Pulse Ox 98.0 F 95 H 18 149/59 96 02/07/21 05:15 02/07/21 05:15 02/07/21 05:15 02/07/21 05:15 02/07/21 05:15 General appearance: Present: no acute distress, well-nourished - EENT Eyes: Present: PERRL, EOM intact ENT: hearing intact, clear oral mucosa, dentition normal - Neck Neck: Present: supple, normal ROM - Respiratory Respiratory effort: normal Respiratory: bilateral: CTA - Cardiovascular Rhythm: regular Heart Sounds: Present: S1 & S2. Absent: gallop, rub - Extremities Extremities: no ischemia, No edema, Full ROM - Abdominal General gastrointestinal: soft, non-tender, non-distended, normal bowel sounds - Integumentary Integumentary: Present: clear, warm, dry - Neurologic Neurologic: CNII-XII intact, moves all extremities HEART Score - HEART Score Troponin: Troponin T < 0.010 ng/mL (0.00-0.029) 02/04/21 20:42 Results - Labs CBC & Chem 7: 02/05/21 05:21 02/06/21 13:31 Labs: Laboratory Last Values WBC 4.5 K/mm3 (4.5-11.0) 02/05/21 05:21 RBC 3.12 M/mm3 (3.65-5.03) L 02/05/21 05:21 Hgb 10.2 gm/dl (10.1-14.3) 02/05/21 05:21 Hct 30.8 % (30.3-42.9) 02/05/21 05:21 MCV 99 fl (79-97) H 02/05/21 05:21 MCH 33 pg (28-32) H 02/05/21 05:21 MCHC 33 % (30-34) 02/05/21 05:21 RDW 15.1 % (13.2-15.2) 02/05/21 05:21 Plt Count 276 K/mm3 (140-440) 02/05/21 05:21 Lymph % (Auto) 34.1 % (13.4-35.0) 02/05/21 05:21 [place] % (Auto) 11.8 % (0.0-7.3) H 02/05/21 05:21 Eos % (Auto) 2.5 % (0.0-4.3) 02/05/21 05:21 Baso % (Auto) 0.9 % (0.0-1.8) 02/05/21 05:21 Lymph # (Auto) 1.5 K/mm3 (1.2-5.4) 02/05/21 05:21 [place] # (Auto) 0.5 K/mm3 (0.0-0.8) 02/05/21 05:21 Eos # (Auto) 0.1 K/mm3 (0.0-0.4) 02/05/21 05:21 Baso # (Auto) 0.0 K/mm3 (0.0-0.1) 02/05/21 05:21 Add Manual Diff Complete 02/04/21 20:42 Total Counted 100 02/04/21 20:42 Seg Neutrophils % 50.7 % (40.0-70.0) 02/05/21 05:21 Seg Neuts % (Manual) 50.0 % (40.0-70.0) 02/04/21 20:42 Lymphocytes % (Manual) 34.0 % (13.4-35.0) 02/04/21 20:42 Monocytes % (Manual) 13.0 % (0.0-7.3) H 02/04/21 20:42 Eosinophils % (Manual) 2.0 % (0.0-4.3) 02/04/21 20:42 Basophils % (Manual) 1.0 % (0.0-1.8) 02/04/21 20:42 Nucleated RBC % Not Reportable 02/04/21 20:42 Seg Neutrophils # 2.3 K/mm3 (1.8-7.7) 02/05/21 05:21 Seg Neutrophils # Man 2.5 K/mm3 (1.8-7.7) 02/04/21 20:42 Band Neutrophils # 0.0 K/mm3 02/04/21 20:42 Lymphocytes # (Manual) 1.7 K/mm3 (1.2-5.4) 02/04/21 20:42 Abs React Lymphs (Man) 0.0 K/mm3 02/04/21 20:42 Monocytes # (Manual) 0.6 K/mm3 (0.0-0.8) 02/04/21 20:42 Eosinophils # (Manual) 0.1 K/mm3 (0.0-0.4) 02/04/21 20:42 Basophils # (Manual) 0.0 K/mm3 (0.0-0.1) 02/04/21 20:42 Metamyelocytes # 0.0 K/mm3 02/04/21 20:42 Myelocytes # 0.0 K/mm3 02/04/21 20:42 Promyelocytes # 0.0 K/mm3 02/04/21 20:42 Blast Cells # 0.0 K/mm3 02/04/21 20:42 WBC Morphology Not Reportable 02/04/21 20:42 Hypersegmented Neuts Not Reportable 02/04/21 20:42 Hyposegmented Neuts Not Reportable 02/04/21 20:42 Hypogranular Neuts Not Reportable 02/04/21 20:42 Smudge Cells Not Reportable 02/04/21 20:42 Toxic Granulation Not Reportable 02/04/21 20:42 Toxic Vacuolation Not Reportable 02/04/21 20:42 Dohle Bodies Not Reportable 02/04/21 20:42 Pelger-Huet Anomaly Not Reportable 02/04/21 20:42 Yadira Rods Not Reportable 02/04/21 20:42 Platelet Estimate Not Reportable 02/04/21 20:42 Clumped Platelets Not Reportable 02/04/21 20:42 Plt Clumps, EDTA Not Reportable 02/04/21 20:42 Large Platelets Not Reportable 02/04/21 20:42 Giant Platelets Not Reportable 02/04/21 20:42 Platelet Satelliting Not Reportable 02/04/21 20:42 Plt Morphology Comment Not Reportable 02/04/21 20:42 RBC Morphology Normal 02/04/21 20:42 Dimorphic RBCs Not Reportable 02/04/21 20:42 Polychromasia Not Reportable 02/04/21 20:42 Hypochromasia Not Reportable 02/04/21 20:42 Poikilocytosis Not Reportable 02/04/21 20:42 Anisocytosis Not Reportable 02/04/21 20:42 Microcytosis Not Reportable 02/04/21 20:42 Macrocytosis Not Reportable 02/04/21 20:42 Spherocytes Not Reportable 02/04/21 20:42 Pappenheimer Bodies Not Reportable 02/04/21 20:42 Sickle Cells Not Reportable 02/04/21 20:42 Target Cells Not Reportable 02/04/21 20:42 Tear Drop Cells Not Reportable 02/04/21 20:42 Ovalocytes Not Reportable 02/04/21 20:42 Helmet Cells Not Reportable 02/04/21 20:42 [place] Bodies Not Reportable 02/04/21 20:42 Hamilton Rings Not Reportable 02/04/21 20:42 Kym Cells Not Reportable 02/04/21 20:42 Bite Cells Not Reportable 02/04/21 20:42 Crenated Cell Not Reportable 02/04/21 20:42 Elliptocytes Not Reportable 02/04/21 20:42 Acanthocytes (Spur) Not Reportable 02/04/21 20:42 Rouleaux Not Reportable 02/04/21 20:42 Hemoglobin C Crystals Not Reportable 02/04/21 20:42 Schistocytes Not Reportable 02/04/21 20:42 Malaria parasites Not Reportable 02/04/21 20:42 [place] Bodies Not Reportable 02/04/21 20:42 Hem Pathologist Commnt No 02/04/21 20:42 PT 13.5 Sec. (12.2-14.9) 02/05/21 05:21 INR 0.93 (0.87-1.13) 02/05/21 05:21 Sodium 142 mmol/L (137-145) 02/06/21 13:31 Potassium 3.2 mmol/L (3.6-5.0) L 02/06/21 13:31 Chloride 109.8 mmol/L (98-107) H 02/06/21 13:31 Carbon Dioxide 16 mmol/L (22-30) L 02/06/21 13:31 Anion Gap 19 mmol/L 02/06/21 13:31 BUN 3 mg/dL (7-17) L 02/06/21 13:31 Creatinine 0.5 mg/dL (0.6-1.2) L 02/06/21 13:31 Estimated GFR > 60 ml/min 02/06/21 13:31 BUN/Creatinine Ratio 6 % 02/06/21 13:31 Glucose 187 mg/dL (65-100) H 02/06/21 13:31 Calcium 7.9 mg/dL (8.4-10.2) L 02/06/21 13:31 Phosphorus 3.00 mg/dL (2.5-4.5) 02/04/21 20:42 Magnesium 1.50 mg/dL (1.7-2.3) L 02/04/21 22:29 Total Bilirubin 0.90 mg/dL (0.1-1.2) 02/05/21 18:02 AST 70 units/L (5-40) H 02/05/21 18:02 ALT 25 units/L (7-56) 02/05/21 18:02 Alkaline Phosphatase 98 units/L (35-129) 02/05/21 18:02 Troponin T < 0.010 ng/mL (0.00-0.029) 02/04/21 20:42 Total Protein 6.4 g/dL (6.3-8.2) 02/05/21 18:02 Albumin 2.6 g/dL (3.9-5) L 02/05/21 18:02 Albumin/Globulin Ratio 0.7 % 02/05/21 18:02 Salicylates < 0.3 mg/dL (2.8-20.0) L 02/04/21 22:29 Acetaminophen 5.0 ug/mL (10.0-30.0) L 02/04/21 22:29 Plasma/Serum Alcohol < 0.01 % (0-0.07) 02/04/21 22:29 [place]/IV: Voiding Method Toilet Active Medications - Current Medications Current Medications: Generic Name Dose Route Start Last Admin Trade Name Freq PRN Reason Stop Dose Admin Acetaminophen 650 mg 02/04/21 23:44 Acetaminophen 325 Mg Tab PO Q4H PRN Pain MILD(1-3)/Fever >100.5/SAENZ Guaifenesin 10 ml 02/05/21 20:49 02/06/21 02:42 Guaifenesin Dm 200/20 Mg Oral Liqd 10 Ml PO 10 ml Q4H PRN Administration Cough Heparin Sodium (Porcine) 5,000 unit 02/05/21 06:00 02/07/21 05:47 Heparin 5,000 Unit/1 Ml Vial SUB-Q 5,000 unit Q8HR [place] Administration Sodium Chloride 1,000 mls @ 125 mls/hr 02/04/21 23:45 Nacl 0.9% 1000 Ml IV DIRECT [place] Metronidazole 500 mg in 100 mls @ 100 mls/hr 02/05/21 08:00 02/07/21 00:14 Flagyl 500 Mg/100 Ml IV 100 mls/hr Q8H [place] Administration Protocol Levofloxacin/Dextrose 500 mg in 100 mls @ 100 mls/hr 02/05/21 08:00 02/06/21 13:32 Levaquin 500mg/100ml IV 100 mls/hr Q24H [place] Administration Protocol Potassium Chloride/Sodium Chloride 40 meq in 1,000 mls @ 75 mls/hr 02/05/21 08:00 02/07/21 03:33 Ns/Kcl 40meq IV 75 mls/hr DIRECT [place] Administration Magnesium Hydroxide 30 ml 02/04/21 23:44 Magnesium Hydroxide (Mom) Oral Liqd Udc PO Q4H PRN Constipation Melatonin 5 mg 02/07/21 00:58 02/07/21 01:08 Melatonin 5 Mg Tab PO 5 mg QHS PRN Administration Sleep Morphine Sulfate 2 mg 02/04/21 23:44 Morphine 2 Mg/1 Ml Inj IV Q4H PRN Pain, Moderate (4-6) Morphine Sulfate 4 mg 02/04/21 23:44 Morphine 4 Mg/1 Ml Inj IV Q4H PRN Pain , Severe (7-10) Ondansetron HCl 4 mg 02/04/21 23:44 Ondansetron 4 Mg/2 Ml Inj IV Q8H PRN Nausea And Vomiting Sodium Chloride 10 ml 02/05/21 10:00 02/06/21 22:18 Sodium Chloride 0.9% 10 Ml Flush Syringe IV 10 ml BID [place] Administration Sodium Chloride 10 ml 02/04/21 23:44 02/06/21 06:23 Sodium Chloride 0.9% 10 Ml Flush Syringe IV 10 ml PRN PRN Administration LINE FLUSH
[2021-02-07 08:58] LABS: BUN/Creatinine Ratio 6
[2021-02-07] MEDS: guaiFENesin DM 200/20 MG ORAL LIQD 10 ML PO PRN (12:28)
[2021-02-08] MEDS: HEPARIN 5,000 UNIT/1 ML VIAL SUB-Q SCH ×3 (05:46→21:27)
[2021-02-08 06:17] LABS: Hematocrit 27.1 % (30.3-42.9); Hemoglobin 9.2 gm/dl (10.1-14.3); Mean Corpuscular HGB Conc 34 % (30-34); Mean Corpuscular Volume 100 fl (79-97); Platelet Count 242 K/mm3 (140-440); Red Blood Count 2.71 M/mm3 (3.65-5.03); Red Cell Distribution Width 15.8 % (13.2-15.2)
[2021-02-08 06:40] LABS: Blood Urea Nitrogen 2 mg/dL (7-17); Calcium 7.9 mg/dL (8.4-10.2); Hemolysis Index 0
[2021-02-08 06:49] LABS: BUN/Creatinine Ratio 5
[2021-02-08 07:46] LABS: Total Cells Counted 100
[2021-02-08 07:47] LABS: Anisocytosis 1+; Platelet Estimate Consistent w Auto
[2021-02-08] MEDS: metroNIDAZOLE/NS 500 MG/100 ML 500 MG/100 ML BAG IV SCH ×2 (07:53→15:51)
[2021-02-08] MEDS: POTASSIUM CHLORIDE ER 20 MEQ TAB PO SCH ×2 (09:55→21:27)
[2021-02-08] MEDS ORDERED: POTASSIUM CHLORIDE ER 20 MEQ TAB PO SCH (10:00)
--- NOTE | 2021-02-08 10:33 | Consultation ---
History of Present Illness - Reason for Consult Reason for consult: Suicidal ideation - Chief Complaint Chief complaint: Lightheadedness Near syncope - History of Present Psychiatric Illness Nola Lopes is a 51 year old female with history of depression. In my interview with the patient, she is confused and delusional.The patient report that she went to the doctor because she thought she was having complications with her " they told me I was 2 months ." The patient denies suicidal/homicidal ideation and denies hallucinations. PAST PSYCHIATRIC HISTORY Diagnoses:Depression Suicide attempts or Self-harm behavior: Denies Prior psychiatric hospitalizations:Yes Substance Abuse history: Denies Previous psychiatric medications tried: Denies Outpatient treatment: Denied SOCIAL HISTORY Marital Status: Single Living Arrangements: Lives with boyfriend Employment Status: employed Access to guns/weapons: Denied Education: 12th grade History of Abuse: Denied Legal History: None reported REVIEW OF SYSTEMS Constitutional: Negative for weight loss ENT: Negative for stridor Respiratory: Negative for cough or hemoptysis All other systems reviewed and are negative MENTAL STATUS EXAMINATION General Appearance and Behavior: Age appropriate, dressed appropriately, calm and uncooperative Cooperation: Cooperative Psychomotor Behavior: psychomotor normal Mood: ok Affect and affective range: Incongruent with stated mood Thought Process: Confused Thought Content: Not suicidal Speech: Normal volume, Regular rate and rhythm, Intellectual Functioning: Average Suicidal Ideation: Denies Homicidal Ideation: Denies Hallucinations:Denies Delusions: None elicited Impulse Control: Unimpaired Insight and Judgment: limited insight and judgment, Memory: Normal Attention: divided Orientation: Alert, oriented Assessment and Plan (1)Unspecified mood disorder (2) Treatment plan Start Zyprexa 5mg po daily Continue previous prescribed meds Risks, benefits and alternatives of medications discussed with the patient, questions answered and consent obtained from patient. PSYCHOTHERAPY: Supportive psychotherapy provided MEDICAL: Per primary team DELIRIUM PRECAUTIONS: Please re-orient patient frequently, keep lights on during the day, and minimize benzodiazepines and opiates as these medications could worsen patient's confusion. OFFICE SERVICES MANAGER: Per medical team DISPOSITION: Recommend acute inpatient psychiatric hospitalization. Will follow. Thank you for the consult. Please contact with any questions and/or concerns. Case staffed with Dr. Carrillo Medications and Allergies Allergies Allergy/AdvReac Type Severity Reaction Status Date / Time No Known Allergies Allergy Unverified 02/04/21 18:30 Home Medications Medication Instructions Recorded Confirmed Last Taken Type No Known Home Medications [No 02/05/21 02/05/21 Unknown History Reported Home Medications] Active Meds: Active Medications Acetaminophen (Acetaminophen 325 Mg Tab) 650 mg PO Q4H PRN PRN Reason: Pain MILD(1-3)/Fever >100.5/SAENZ Guaifenesin (Guaifenesin Dm 200/20 Mg Oral Liqd 10 Ml) 10 ml PO Q4H PRN PRN Reason: Cough Last Admin: 02/07/21 12:28 Dose: 10 ml Documented by: Heparin Sodium (Porcine) (Heparin 5,000 Unit/1 Ml Vial) 5,000 unit SUB-Q Q8HR [place] Last Admin: 02/08/21 05:46 Dose: 5,000 unit Documented by: Metronidazole (Flagyl 500 Mg/100 Ml) 500 mg in 100 mls @ 100 mls/hr IV Q8H [place]; Protocol Stop: 02/10/21 00:59 Last Admin: 02/08/21 07:53 Dose: 100 mls/hr Documented by: Levofloxacin/Dextrose (Levaquin 500mg/100ml) 500 mg in 100 mls @ 100 mls/hr IV Q24H [place]; Protocol Stop: 02/09/21 08:59 Last Admin: 02/08/21 07:53 Dose: 100 mls/hr Documented by: Potassium Chloride/Sodium Chloride (Ns/Kcl 40meq) 40 meq in 1,000 mls @ 75 mls/hr IV DIRECT [place] Last Admin: 02/07/21 19:30 Dose: 75 mls/hr Documented by: Potassium Chloride (Kcl 10meq/100ml) 10 meq in 100 mls @ 100 mls/hr IV Q1H [place] Stop: 02/08/21 13:59 Magnesium Hydroxide (Magnesium Hydroxide (Mom) Oral Liqd Udc) 30 ml PO Q4H PRN PRN Reason: Constipation Melatonin (Melatonin 5 Mg Tab) 5 mg PO QHS PRN PRN Reason: Sleep Last Admin: 02/07/21 23:36 Dose: 5 mg Documented by: Morphine Sulfate (Morphine 2 Mg/1 Ml Inj) 2 mg IV Q4H PRN PRN Reason: Pain, Moderate (4-6) Morphine Sulfate (Morphine 4 Mg/1 Ml Inj) 4 mg IV Q4H PRN PRN Reason: Pain , Severe (7-10) Ondansetron HCl (Ondansetron 4 Mg/2 Ml Inj) 4 mg IV Q8H PRN PRN Reason: Nausea And Vomiting Potassium Chloride (Potassium Chloride Er 20 Meq Tab) 40 meq PO BID [facility] Last Admin: 02/08/21 09:55 Dose: 40 meq Documented by: Sodium Chloride (Sodium Chloride 0.9% 10 Ml Flush Syringe) 10 ml IV BID [facility] Last Admin: 02/08/21 09:51 Dose: 10 ml Documented by: Sodium Chloride (Sodium Chloride 0.9% 10 Ml Flush Syringe) 10 ml IV PRN PRN PRN Reason: LINE FLUSH Last Admin: 02/06/21 06:23 Dose: 10 ml Documented by: Mental Status Exam - Vital signs Last Vital Signs Temp 98.0 F 02/08/21 03:14 Pulse 93 H 02/08/21 06:00 Resp 16 02/08/21 03:14 BP 101/68 02/08/21 09:50 Pulse Ox 97 02/08/21 03:14 Results Result Diagrams: 02/08/21 04:36 02/08/21 04:36 Abnormal lab results 02/08/21 02/08/21 Range/Units 04:36 04:36 WBC 3.1 L (4.5-11.0) K/mm3 RBC 2.71 L (3.65-5.03) M/mm3 Hgb 9.2 L (10.1-14.3) gm/dl Hct 27.1 L (30.3-42.9) % MCV 100 H (79-97) fl MCH 34 H (28-32) pg RDW 15.8 H (13.2-15.2) % Seg Neuts % (Manual) 36.0 L (40.0-70.0) % Lymphocytes % (Manual) 52.0 H (13.4-35.0) % Monocytes % (Manual) 8.0 H (0.0-7.3) % Seg Neutrophils # Man 1.1 L (1.8-7.7) K/mm3 Potassium 3.0 L (3.6-5.0) mmol/L Chloride 110.9 H (98-107) mmol/L Carbon Dioxide 17 L (22-30) mmol/L BUN 2 L (7-17) mg/dL Creatinine 0.4 L (0.6-1.2) mg/dL Glucose 105 H (65-100) mg/dL Calcium 7.9 L (8.4-10.2) mg/dL All other labs normal.
[2021-02-08] MEDS: POTASSIUM CHLORIDE 10 MEQ 10 MEQ/100 ML BAG IV SCH ×4 (11:06→15:55)
--- NOTE | 2021-02-08 18:53 | Progress Note ---
Assessment and Plan Assessment and plan: Acute colitis. Orthostatic hypotension Severe hypokalemia Hypomagnesemia 02/05/2021. CT scan of the abdomen pelvis revealed mild sigmoid colitis. We will start IV antibiotics of Levaquin and Flagyl. Follow-up stool culture and fecal leukocytes. Patient will have repletion of potassium and follow-up BMP later today and in a.m. Continue IV fluid hydration for orthostasis. Magnesium repleted. Anticipate discharge in a.m. 02/06/2021. Patient denies any diarrhea. We'll follow-up stool studies continue IV antibiotics of Levaquin and Flagyl. Patient still has significant hypokalemia. Replete potassium and follow-up BMP. Replete magnesium. Patient remains orthostatic. Continue IV fluid hydration and recheck orthostatic vital signs. 02/07/2021. Potassium improved to 3.2 yesterday. Recheck BMP this morning. Continue to replete potassium and magnesium as needed. Still awaiting stool studies for fecal leukocyte and culture. Continue IV antibiotics of Flagyl and Levaquin. Patient still with significant orthostasis this morning. Continue IV fluid hydration. 02/09/2021: Patient remains alert, verbal but confused/disoriented. The etiology appears to be dementia but acutely encephalopathy cannot rule out. Patient remains afebrile. Does not appear to be septic. She continues to have diarrhea with the severe persistent hypokalemia which is replenished on a daily basis. Discussed with the nursing staff. History Interval history: Patient remains pleasantly confused. She is alert with fluent speech however. She looks uncomfortable. She is tolerating diet. She is unable to provide any reliable history. She is having diarrhea still but patient is not aware of it. Potassium continues to remain critically low even though replaced on a daily basis. Hospitalist Physical - Constitutional Vitals: Temp Pulse Resp BP Pulse Ox 98.0 F 93 H 16 101/68 96 02/08/21 03:14 02/08/21 06:00 02/08/21 03:14 02/08/21 09:50 02/08/21 12:00 General appearance: Present: no acute distress, well-nourished, other (Confused) - EENT Eyes: Present: PERRL, EOM intact ENT: clear oral mucosa - Neck Neck: Present: supple - Respiratory Respiratory effort: normal Respiratory: bilateral: CTA - Cardiovascular Rhythm: regular - Extremities Extremities: No edema - Abdominal General gastrointestinal: soft, non-tender, non-distended, normal bowel sounds - Integumentary Integumentary: Absent: rash - Psychiatric Psychiatric: other (Confused) - Neurologic Neurologic: no focal deficits, moves all extremities HEART Score - HEART Score Troponin: Troponin T < 0.010 ng/mL (0.00-0.029) 02/04/21 20:42 Results - Labs CBC & Chem 7: 02/09/21 10:01 02/09/21 10:01 Labs: Laboratory Last Values WBC 3.1 K/mm3 (4.5-11.0) L 02/08/21 04:36 RBC 2.71 M/mm3 (3.65-5.03) L 02/08/21 04:36 Hgb 9.2 gm/dl (10.1-14.3) L 02/08/21 04:36 Hct 27.1 % (30.3-42.9) L 02/08/21 04:36 MCV 100 fl (79-97) H 02/08/21 04:36 MCH 34 pg (28-32) H 02/08/21 04:36 MCHC 34 % (30-34) 02/08/21 04:36 RDW 15.8 % (13.2-15.2) H 02/08/21 04:36 Plt Count 242 K/mm3 (140-440) 02/08/21 04:36 Lymph % (Auto) Print Developer 02/08/21 04:36 [place] % (Auto) 11.8 % (0.0-7.3) H 02/05/21 05:21 Eos % (Auto) 2.5 % (0.0-4.3) 02/05/21 05:21 Baso % (Auto) 0.9 % (0.0-1.8) 02/05/21 05:21 Lymph # (Auto) 1.5 K/mm3 (1.2-5.4) 02/05/21 05:21 [place] # (Auto) 0.5 K/mm3 (0.0-0.8) 02/05/21 05:21 Eos # (Auto) 0.1 K/mm3 (0.0-0.4) 02/05/21 05:21 Baso # (Auto) 0.0 K/mm3 (0.0-0.1) 02/05/21 05:21 Add Manual Diff Complete 02/08/21 04:36 Total Counted 100 02/08/21 04:36 Seg Neutrophils % Print Developer 02/08/21 04:36 Seg Neuts % (Manual) 36.0 % (40.0-70.0) L 02/08/21 04:36 Lymphocytes % (Manual) 52.0 % (13.4-35.0) H 02/08/21 04:36 Monocytes % (Manual) 8.0 % (0.0-7.3) H 02/08/21 04:36 Eosinophils % (Manual) 3.0 % (0.0-4.3) 02/08/21 04:36 Basophils % (Manual) 1.0 % (0.0-1.8) 02/08/21 04:36 Nucleated RBC % Not Reportable 02/08/21 04:36 Seg Neutrophils # 2.3 K/mm3 (1.8-7.7) 02/05/21 05:21 Seg Neutrophils # Man 1.1 K/mm3 (1.8-7.7) L 02/08/21 04:36 Band Neutrophils # 0.0 K/mm3 02/08/21 04:36 Lymphocytes # (Manual) 1.6 K/mm3 (1.2-5.4) 02/08/21 04:36 Abs React Lymphs (Man) 0.0 K/mm3 02/08/21 04:36 Monocytes # (Manual) 0.2 K/mm3 (0.0-0.8) 02/08/21 04:36 Eosinophils # (Manual) 0.1 K/mm3 (0.0-0.4) 02/08/21 04:36 Basophils # (Manual) 0.0 K/mm3 (0.0-0.1) 02/08/21 04:36 Metamyelocytes # 0.0 K/mm3 02/08/21 04:36 Myelocytes # 0.0 K/mm3 02/08/21 04:36 Promyelocytes # 0.0 K/mm3 02/08/21 04:36 Blast Cells # 0.0 K/mm3 02/08/21 04:36 WBC Morphology Not Reportable 02/08/21 04:36 Hypersegmented Neuts Not Reportable 02/08/21 04:36 Hyposegmented Neuts Not Reportable 02/08/21 04:36 Hypogranular Neuts Not Reportable 02/08/21 04:36 Smudge Cells Not Reportable 02/08/21 04:36 Toxic Granulation Not Reportable 02/08/21 04:36 Toxic Vacuolation Not Reportable 02/08/21 04:36 Dohle Bodies Not Reportable 02/08/21 04:36 Pelger-Huet Anomaly Not Reportable 02/08/21 04:36 Yadira Rods Not Reportable 02/08/21 04:36 Platelet Estimate Consistent w auto 02/08/21 04:36 Clumped Platelets Not Reportable 02/08/21 04:36 Plt Clumps, EDTA Not Reportable 02/08/21 04:36 Large Platelets Not Reportable 02/08/21 04:36 Giant Platelets Not Reportable 02/08/21 04:36 Platelet Satelliting Not Reportable 02/08/21 04:36 Plt Morphology Comment Not Reportable 02/08/21 04:36 RBC Morphology Not Reportable 02/08/21 04:36 Dimorphic RBCs Not Reportable 02/08/21 04:36 Polychromasia Not Reportable 02/08/21 04:36 Hypochromasia Not Reportable 02/08/21 04:36 Poikilocytosis Not Reportable 02/08/21 04:36 Anisocytosis 1+ 02/08/21 04:36 Microcytosis Not Reportable 02/08/21 04:36 Macrocytosis Not Reportable 02/08/21 04:36 Spherocytes Not Reportable 02/08/21 04:36 Pappenheimer Bodies Not Reportable 02/08/21 04:36 Sickle Cells Not Reportable 02/08/21 04:36 Target Cells Not Reportable 02/08/21 04:36 Tear Drop Cells Not Reportable 02/08/21 04:36 Ovalocytes Not Reportable 02/08/21 04:36 Helmet Cells Not Reportable 02/08/21 04:36 [place] Bodies Not Reportable 02/08/21 04:36 [place] Rings Not Reportable 02/08/21 04:36 [place] Cells Not Reportable 02/08/21 04:36 Bite Cells Not Reportable 02/08/21 04:36 Crenated Cell Not Reportable 02/08/21 04:36 Elliptocytes Not Reportable 02/08/21 04:36 Acanthocytes (Spur) Not Reportable 02/08/21 04:36 Rouleaux Not Reportable 02/08/21 04:36 Hemoglobin C Crystals Not Reportable 02/08/21 04:36 Schistocytes Not Reportable 02/08/21 04:36 Malaria parasites Not Reportable 02/08/21 04:36 [place] Bodies Not Reportable 02/08/21 04:36 Hem Pathologist Commnt No 02/08/21 04:36 PT 13.5 Sec. (12.2-14.9) 02/05/21 05:21 INR 0.93 (0.87-1.13) 02/05/21 05:21 Sodium 139 mmol/L (137-145) 02/08/21 04:36 Potassium 3.0 mmol/L (3.6-5.0) L 02/08/21 04:36 Chloride 110.9 mmol/L (98-107) H 02/08/21 04:36 Carbon Dioxide 17 mmol/L (22-30) L 02/08/21 04:36 Anion Gap 14 mmol/L 02/08/21 04:36 BUN 2 mg/dL (7-17) L 02/08/21 04:36 Creatinine 0.4 mg/dL (0.6-1.2) L 02/08/21 04:36 Estimated GFR > 60 ml/min 02/08/21 04:36 BUN/Creatinine Ratio 5 % 02/08/21 04:36 Glucose 105 mg/dL (65-100) H 02/08/21 04:36 Calcium 7.9 mg/dL (8.4-10.2) L 02/08/21 04:36 Phosphorus 3.00 mg/dL (2.5-4.5) 02/04/21 20:42 Magnesium 1.60 mg/dL (1.7-2.3) L 02/08/21 16:57 Total Bilirubin 0.90 mg/dL (0.1-1.2) 02/05/21 18:02 AST 70 units/L (5-40) H 02/05/21 18:02 ALT 25 units/L (7-56) 02/05/21 18:02 Alkaline Phosphatase 98 units/L (35-129) 02/05/21 18:02 Troponin T < 0.010 ng/mL (0.00-0.029) 02/04/21 20:42 Total Protein 6.4 g/dL (6.3-8.2) 02/05/21 18:02 Albumin 2.6 g/dL (3.9-5) L 02/05/21 18:02 Albumin/Globulin Ratio 0.7 % 02/05/21 18:02 Salicylates < 0.3 mg/dL (2.8-20.0) L 02/04/21 22:29 Acetaminophen 5.0 ug/mL (10.0-30.0) L 02/04/21 22:29 Plasma/Serum Alcohol < 0.01 % (0-0.07) 02/04/21 22:29 Coronavirus (PCR) Negative (Negative) 02/07/21 Unknown Microbiology: Microbiology 02/07/21 Unknown Stool Stool for WBCs - Final [place]/IV: Voiding Method Toilet Active Medications - Current Medications Current Medications: Generic Name Dose Route Start Last Admin Trade Name Freq PRN Reason Stop Dose Admin Acetaminophen 650 mg 02/04/21 23:44 Acetaminophen 325 Mg Tab PO Q4H PRN Pain MILD(1-3)/Fever >100.5/SAENZ Guaifenesin 10 ml 02/05/21 20:49 02/07/21 12:28 Guaifenesin Dm 200/20 Mg Oral Liqd 10 Ml PO 10 ml Q4H PRN Administration Cough Heparin Sodium (Porcine) 5,000 unit 02/05/21 06:00 02/08/21 15:51 Heparin 5,000 Unit/1 Ml Vial SUB-Q 5,000 unit Q8HR [place] Administration Metronidazole 500 mg in 100 mls @ 100 mls/hr 02/05/21 08:00 02/08/21 15:51 Flagyl 500 Mg/100 Ml IV 02/10/21 00:59 100 mls/hr Q8H [place] Administration Protocol Levofloxacin/Dextrose 500 mg in 100 mls @ 100 mls/hr 02/05/21 08:00 02/08/21 07:53 Levaquin 500mg/100ml IV 02/09/21 08:59 100 mls/hr Q24H [place] Administration Protocol Potassium Chloride/Sodium Chloride 40 meq in 1,000 mls @ 75 mls/hr 02/05/21 08:00 02/07/21 19:30 Ns/Kcl 40meq IV 75 mls/hr DIRECT [place] Administration Magnesium Hydroxide 30 ml 02/04/21 23:44 Magnesium Hydroxide (Mom) Oral Liqd Udc PO Q4H PRN Constipation Melatonin 5 mg 02/07/21 00:58 02/07/21 23:36 Melatonin 5 Mg Tab PO 5 mg QHS PRN Administration Sleep Morphine Sulfate 2 mg 02/04/21 23:44 Morphine 2 Mg/1 Ml Inj IV Q4H PRN Pain, Moderate (4-6) Morphine Sulfate 4 mg 02/04/21 23:44 Morphine 4 Mg/1 Ml Inj IV Q4H PRN Pain , Severe (7-10) Olanzapine 5 mg 02/08/21 12:00 02/08/21 11:08 Olanzapine 5 Mg Tab PO 5 mg QDAY [place] Administration Ondansetron HCl 4 mg 02/04/21 23:44 Ondansetron 4 Mg/2 Ml Inj IV Q8H PRN Nausea And Vomiting Potassium Chloride 40 meq 02/08/21 10:00 02/08/21 09:55 Potassium Chloride Er 20 Meq Tab PO 40 meq BID [place] Administration Sodium Chloride 10 ml 02/05/21 10:00 02/08/21 09:51 Sodium Chloride 0.9% 10 Ml Flush Syringe IV 10 ml BID [place] Administration Sodium Chloride 10 ml 02/04/21 23:44 02/06/21 06:23 Sodium Chloride 0.9% 10 Ml Flush Syringe IV 10 ml PRN PRN Administration LINE FLUSH
[2021-02-08] MEDS: MELATONIN 5 MG TAB PO PRN (21:28)
[2021-02-09] MEDS: HEPARIN 5,000 UNIT/1 ML VIAL SUB-Q SCH ×3 (06:33→21:45)
[2021-02-09] MEDS: NACL 0.9%/KCL 40 MEQ 40 MEQ/1,000 ML BAG IV SCH (06:36)
[2021-02-09] MEDS: POTASSIUM CHLORIDE ER 20 MEQ TAB PO SCH ×2 (10:22→21:45)
[2021-02-09] MEDS: metroNIDAZOLE/NS 500 MG/100 ML 500 MG/100 ML BAG IV SCH ×3 (10:22→17:58)
[2021-02-09 10:25] LABS: Basophils % (Auto) 0.9 % (0.0-1.8); Eosinophils # (Auto) 0.1 K/mm3 (0.0-0.4); Eosinophils % (Auto) 1.8 % (0.0-4.3); Hematocrit 27.8 % (30.3-42.9); Hemoglobin 8.9 gm/dl (10.1-14.3); Lymphocytes # (Auto) 1.5 K/mm3 (1.2-5.4); Lymphocytes % (Auto) 41.2 % (13.4-35.0); Mean Corpuscular HGB Conc 32 % (30-34); Mean Corpuscular Volume 99 fl (79-97); Monocytes # (Auto) 0.5 K/mm3 (0.0-0.8); Platelet Count 278 K/mm3 (140-440); Red Blood Count 2.82 M/mm3 (3.65-5.03); Red Cell Distribution Width 15.7 % (13.2-15.2)
[2021-02-09 10:32] LABS: Alanine Aminotransferase 16 units/L (7-56); Albumin 2.1 g/dL (3.9-5); Calcium 7.9 mg/dL (8.4-10.2); Hemolysis Index 2
[2021-02-09 10:41] LABS: BUN/Creatinine Ratio 2; Blood Urea Nitrogen < 1 mg/dL (7-17)
--- NOTE | 2021-02-09 15:22 | Progress Note ---
Subjective - Reason for Consult Consult date: 02/09/21 Reason for consult: mental health evaluation - Chief Complaint Chief complaint: The patient was seen today, she is alert and oriented. The patient reports sleep and appetite as good. She denies any current suicidal ideation and denies hallucinations. REVIEW OF SYSTEMS Constitutional: Negative for weight loss ENT: Negative for stridor Respiratory: Negative for cough or hemoptysis All other systems reviewed and are negative MENTAL STATUS EXAMINATION General Appearance and Behavior: Age appropriate, dressed appropriately, calm and cooperative Cooperation: Cooperative Psychomotor Behavior: psychomotor normal Mood: ok Affect and affective range: congruent with stated mood Thought Process: Goal directed Thought Content: Not suicidal Speech: Normal volume, Regular rate and rhythm, Intellectual Functioning: Average Suicidal Ideation: Denies Homicidal Ideation: Denies Hallucinations:Denies Delusions: None elicited Impulse Control: Unimpaired Insight and Judgment: limited insight and fair judgment, Memory: Normal Attention: divided Orientation: Alert, oriented Assessment and Plan (1)Unspecified mood disorder (2) Treatment plan Continue Zyprexa 5mg po daily Continue previous prescribed meds Risks, benefits and alternatives of medications discussed with the patient, questions answered and consent obtained from patient. PSYCHOTHERAPY: Supportive psychotherapy provided MEDICAL: Per primary team DELIRIUM PRECAUTIONS: Please re-orient patient frequently, keep lights on during the day, and minimize benzodiazepines and opiates as these medications could worsen patient's confusion. 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 Will follow. Thank you for the consult. Please contact with any questions and/or concerns. Case staffed with Dr. Carrillo Mental Status Exam - Vital signs Last Vital Signs Temp 97.7 F 02/09/21 12:11 Pulse 85 02/09/21 12:11 Resp 18 02/09/21 12:11 BP 131/74 02/09/21 12:11 Pulse Ox 97 02/09/21 12:11
[2021-02-09] MEDS ORDERED: MAGNESIUM SULFATE 2 GM/50 ML BAG IV ONE (19:10)
--- NOTE | 2021-02-10 05:41 | Progress Note ---
Assessment and Plan Assessment and plan: Acute colitis/diarrhea. Orthostatic hypotension Severe persistent hypokalemia Hypomagnesemia 02/05/2021. CT scan of the abdomen pelvis revealed mild sigmoid colitis. We will start IV antibiotics of Levaquin and Flagyl. Follow-up stool culture and fecal leukocytes. Patient will have repletion of potassium and follow-up BMP later today and in a.m. Continue IV fluid hydration for orthostasis. Magnesium repleted. Anticipate discharge in a.m. 02/06/2021. Patient denies any diarrhea. We'll follow-up stool studies continue IV antibiotics of Levaquin and Flagyl. Patient still has significant hypokalemia. Replete potassium and follow-up BMP. Replete magnesium. Patient remains orthostatic. Continue IV fluid hydration and recheck orthostatic vital signs. 02/07/2021. Potassium improved to 3.2 yesterday. Recheck BMP this morning. Continue to replete potassium and magnesium as needed. Still awaiting stool studies for fecal leukocyte and culture. Continue IV antibiotics of Flagyl and Levaquin. Patient still with significant orthostasis this morning. Continue IV fluid hydration. 02/08/2021: Patient remains alert, verbal but confused/disoriented. The etiology appears to be dementia but acutely encephalopathy cannot rule out. Patient remains afebrile. Does not appear to be septic. She continues to have diarrhea with the severe persistent hypokalemia which is replenished on a daily basis. Discussed with the nursing staff. 02/09/2021: Patient remains pleasantly confused. No behavioral problems like agitation. Will likely from a dementia but acute encephalopathy, rule out. Psychiatry is following. Patient is on Zyprexa. Potassium remains low but seems to be improving. We will continue aggressive potassium replacement along with medicine replacement. Will discontinue IV fluids. Will discontinue antibiotics. Nursing staff reports that she has no diarrhea today. History Interval history: Patient remains pleasantly confused. She is alert however without acute distress. She was able to provide any reliable history. According to her nurse, she does not have diarrhea today. Potassium remains low but better.. Hospitalist Physical - Constitutional Vitals: Temp Pulse Resp BP Pulse Ox 97.9 F 86 16 110/59 95 02/10/21 03:33 02/10/21 03:33 02/10/21 03:33 02/10/21 03:33 02/10/21 03:33 General appearance: Present: no acute distress, well-nourished, other (Confused) - EENT Eyes: Present: PERRL, EOM intact ENT: clear oral mucosa - Neck Neck: Present: supple - Respiratory Respiratory effort: normal Respiratory: bilateral: CTA - Cardiovascular Rhythm: regular - Extremities Extremities: No edema - Abdominal General gastrointestinal: soft, non-tender, distended, normal bowel sounds - Psychiatric Psychiatric: other (Confused) - Neurologic Neurologic: no focal deficits, moves all extremities HEART Score - HEART Score Troponin: Troponin T < 0.010 ng/mL (0.00-0.029) 02/04/21 20:42 Results - Labs CBC & Chem 7: 02/09/21 10:01 02/09/21 10:01 Labs: Laboratory Last Values WBC 3.7 K/mm3 (4.5-11.0) L 02/09/21 10:01 RBC 2.82 M/mm3 (3.65-5.03) L 02/09/21 10:01 Hgb 8.9 gm/dl (10.1-14.3) L 02/09/21 10:01 Hct 27.8 % (30.3-42.9) L 02/09/21 10:01 MCV 99 fl (79-97) H 02/09/21 10:01 MCH 32 pg (28-32) 02/09/21 10:01 MCHC 32 % (30-34) 02/09/21 10:01 RDW 15.7 % (13.2-15.2) H 02/09/21 10:01 Plt Count 278 K/mm3 (140-440) 02/09/21 10:01 Lymph % (Auto) 41.2 % (13.4-35.0) H 02/09/21 10:01 [place] % (Auto) 13.0 % (0.0-7.3) H 02/09/21 10:01 Eos % (Auto) 1.8 % (0.0-4.3) 02/09/21 10:01 Baso % (Auto) 0.9 % (0.0-1.8) 02/09/21 10:01 Lymph # (Auto) 1.5 K/mm3 (1.2-5.4) 02/09/21 10:01 [place] # (Auto) 0.5 K/mm3 (0.0-0.8) 02/09/21 10:01 Eos # (Auto) 0.1 K/mm3 (0.0-0.4) 02/09/21 10:01 Baso # (Auto) 0.0 K/mm3 (0.0-0.1) 02/09/21 10:01 Add Manual Diff Complete 02/08/21 04:36 Total Counted 100 02/08/21 04:36 Seg Neutrophils % 43.1 % (40.0-70.0) 02/09/21 10:01 Seg Neuts % (Manual) 36.0 % (40.0-70.0) L 02/08/21 04:36 Lymphocytes % (Manual) 52.0 % (13.4-35.0) H 02/08/21 04:36 Monocytes % (Manual) 8.0 % (0.0-7.3) H 02/08/21 04:36 Eosinophils % (Manual) 3.0 % (0.0-4.3) 02/08/21 04:36 Basophils % (Manual) 1.0 % (0.0-1.8) 02/08/21 04:36 Nucleated RBC % Not Reportable 02/08/21 04:36 Seg Neutrophils # 1.6 K/mm3 (1.8-7.7) L 02/09/21 10:01 Seg Neutrophils # Man 1.1 K/mm3 (1.8-7.7) L 02/08/21 04:36 Band Neutrophils # 0.0 K/mm3 02/08/21 04:36 Lymphocytes # (Manual) 1.6 K/mm3 (1.2-5.4) 02/08/21 04:36 Abs React Lymphs (Man) 0.0 K/mm3 02/08/21 04:36 Monocytes # (Manual) 0.2 K/mm3 (0.0-0.8) 02/08/21 04:36 Eosinophils # (Manual) 0.1 K/mm3 (0.0-0.4) 02/08/21 04:36 Basophils # (Manual) 0.0 K/mm3 (0.0-0.1) 02/08/21 04:36 Metamyelocytes # 0.0 K/mm3 02/08/21 04:36 Myelocytes # 0.0 K/mm3 02/08/21 04:36 Promyelocytes # 0.0 K/mm3 02/08/21 04:36 Blast Cells # 0.0 K/mm3 02/08/21 04:36 WBC Morphology Not Reportable 02/08/21 04:36 Hypersegmented Neuts Not Reportable 02/08/21 04:36 Hyposegmented Neuts Not Reportable 02/08/21 04:36 Hypogranular Neuts Not Reportable 02/08/21 04:36 Smudge Cells Not Reportable 02/08/21 04:36 Toxic Granulation Not Reportable 02/08/21 04:36 Toxic Vacuolation Not Reportable 02/08/21 04:36 Dohle Bodies Not Reportable 02/08/21 04:36 Pelger-Huet Anomaly Not Reportable 02/08/21 04:36 Yadira Rods Not Reportable 02/08/21 04:36 Platelet Estimate Consistent w auto 02/08/21 04:36 Clumped Platelets Not Reportable 02/08/21 04:36 Plt Clumps, EDTA Not Reportable 02/08/21 04:36 Large Platelets Not Reportable 02/08/21 04:36 Giant Platelets Not Reportable 02/08/21 04:36 Platelet Satelliting Not Reportable 02/08/21 04:36 Plt Morphology Comment Not Reportable 02/08/21 04:36 RBC Morphology Not Reportable 02/08/21 04:36 Dimorphic RBCs Not Reportable 02/08/21 04:36 Polychromasia Not Reportable 02/08/21 04:36 Hypochromasia Not Reportable 02/08/21 04:36 Poikilocytosis Not Reportable 02/08/21 04:36 Anisocytosis 1+ 02/08/21 04:36 Microcytosis Not Reportable 02/08/21 04:36 Macrocytosis Not Reportable 02/08/21 04:36 Spherocytes Not Reportable 02/08/21 04:36 Pappenheimer Bodies Not Reportable 02/08/21 04:36 Sickle Cells Not Reportable 02/08/21 04:36 Target Cells Not Reportable 02/08/21 04:36 Tear Drop Cells Not Reportable 02/08/21 04:36 Ovalocytes Not Reportable 02/08/21 04:36 Helmet Cells Not Reportable 02/08/21 04:36 [place] Bodies Not Reportable 02/08/21 04:36 [place] Rings Not Reportable 02/08/21 04:36 [place] Cells Not Reportable 02/08/21 04:36 Bite Cells Not Reportable 02/08/21 04:36 Crenated Cell Not Reportable 02/08/21 04:36 Elliptocytes Not Reportable 02/08/21 04:36 Acanthocytes (Spur) Not Reportable 02/08/21 04:36 Rouleaux Not Reportable 02/08/21 04:36 Hemoglobin C Crystals Not Reportable 02/08/21 04:36 Schistocytes Not Reportable 02/08/21 04:36 Malaria parasites Not Reportable 02/08/21 04:36 [place] Bodies Not Reportable 02/08/21 04:36 Hem Pathologist Commnt No 02/08/21 04:36 PT 13.5 Sec. (12.2-14.9) 02/05/21 05:21 INR 0.93 (0.87-1.13) 02/05/21 05:21 Sodium 142 mmol/L (137-145) 02/09/21 10:01 Potassium 3.4 mmol/L (3.6-5.0) L 02/09/21 10:01 Chloride 116.6 mmol/L (98-107) H 02/09/21 10:01 Carbon Dioxide 15 mmol/L (22-30) L 02/09/21 10:01 Anion Gap 14 mmol/L 02/09/21 10:01 BUN < 1 mg/dL (7-17) L 02/09/21 10:01 Creatinine 0.5 mg/dL (0.6-1.2) L 02/09/21 10:01 Estimated GFR > 60 ml/min 02/09/21 10:01 BUN/Creatinine Ratio 2 % 02/09/21 10:01 Glucose 90 mg/dL (65-100) 02/09/21 10:01 Calcium 7.9 mg/dL (8.4-10.2) L 02/09/21 10:01 Phosphorus 3.00 mg/dL (2.5-4.5) 02/04/21 20:42 Magnesium 1.50 mg/dL (1.7-2.3) L 02/09/21 10:01 Total Bilirubin 0.60 mg/dL (0.1-1.2) 02/09/21 10:01 AST 48 units/L (5-40) H 02/09/21 10:01 ALT 16 units/L (7-56) 02/09/21 10:01 Alkaline Phosphatase 77 units/L (35-129) 02/09/21 10:01 Troponin T < 0.010 ng/mL (0.00-0.029) 02/04/21 20:42 Total Protein 5.2 g/dL (6.3-8.2) L 02/09/21 10:01 Albumin 2.1 g/dL (3.9-5) L 02/09/21 10:01 Albumin/Globulin Ratio 0.7 % 02/09/21 10:01 Salicylates < 0.3 mg/dL (2.8-20.0) L 02/04/21 22:29 Acetaminophen 5.0 ug/mL (10.0-30.0) L 02/04/21 22:29 Plasma/Serum Alcohol < 0.01 % (0-0.07) 02/04/21 22:29 Coronavirus (PCR) Negative (Negative) 02/07/21 Unknown [place]/IV: Voiding Method Toilet Active Medications - Current Medications Current Medications: Generic Name Dose Route Start Last Admin Trade Name Freq PRN Reason Stop Dose Admin Acetaminophen 650 mg 02/04/21 23:44 Acetaminophen 325 Mg Tab PO Q4H PRN Pain MILD(1-3)/Fever >100.5/SAENZ Guaifenesin 10 ml 02/05/21 20:49 02/07/21 12:28 Guaifenesin Dm 200/20 Mg Oral Liqd 10 Ml PO 10 ml Q4H PRN Administration Cough Heparin Sodium (Porcine) 5,000 unit 02/05/21 06:00 02/09/21 21:45 Heparin 5,000 Unit/1 Ml Vial SUB-Q 5,000 unit Q8HR [place] Administration Melatonin 5 mg 02/07/21 00:58 02/08/21 21:28 Melatonin 5 Mg Tab PO 5 mg QHS PRN Administration Sleep Olanzapine 5 mg 02/08/21 12:00 02/09/21 10:23 Olanzapine 5 Mg Tab PO 5 mg QDAY [place] Administration Ondansetron HCl 4 mg 02/04/21 23:44 Ondansetron 4 Mg/2 Ml Inj IV Q8H PRN Nausea And Vomiting Potassium Chloride 40 meq 02/08/21 10:00 02/09/21 21:45 Potassium Chloride Er 20 Meq Tab PO 40 meq BID [place] Administration Sodium Chloride 10 ml 02/05/21 10:00 02/09/21 21:44 Sodium Chloride 0.9% 10 Ml Flush Syringe IV 10 ml BID [place] Administration Sodium Chloride 10 ml 02/04/21 23:44 02/06/21 06:23 Sodium Chloride 0.9% 10 Ml Flush Syringe IV 10 ml PRN PRN Administration LINE FLUSH
[2021-02-10 05:51] LABS: Hematocrit 27.9 % (30.3-42.9); Hemoglobin 9.2 gm/dl (10.1-14.3); Mean Corpuscular HGB Conc 33 % (30-34); Mean Corpuscular Volume 99 fl (79-97); Platelet Count 262 K/mm3 (140-440); Red Blood Count 2.83 M/mm3 (3.65-5.03)
[2021-02-10] MEDS: HEPARIN 5,000 UNIT/1 ML VIAL SUB-Q SCH ×3 (06:20→22:06)
[2021-02-10 06:38] LABS: Alanine Aminotransferase 15 units/L (7-56); Albumin 2.1 g/dL (3.9-5); Calcium 8.2 mg/dL (8.4-10.2); Hemolysis Index 0
[2021-02-10 06:42] LABS: BUN/Creatinine Ratio 3; Blood Urea Nitrogen < 1 mg/dL (7-17)
[2021-02-10] MEDS: POTASSIUM CHLORIDE ER 20 MEQ TAB PO SCH ×2 (09:29→22:06)
--- NOTE | 2021-02-10 09:53 | Electrocardiograph Report ---
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
--- NOTE | 2021-02-10 13:10 | Gastroenterology Consultation ---
History of Present Illness - Reason for Consult Consult date: 02/10/21 diarrhea Requesting physician: CELINE LOPEZ - History of Present Illness This is a 51 yo female with pmh of gastric bypass and recent admission at [facility] for colitis (discharged on 01/21/2021) admitted on 02/04/2021 for sob and near syncope. Reported patient had nausea/vomiting and bouts of diarrhea for few days prior to admission. Patient today is not able to tell me if she did have symptoms of diarrhea at home. Reports loose stools yesterday x 1 but no BM overnight or today. no abdominal pain, bleeding symptoms or nausea/vomiting. She is disoriented today but unclear what her baseline mental status is. On admission, ED work up included Chest x-ray and CT scan of the head were unremarkable. CT of the abdomen and pelvis shows possible mild sigmoid colitis. Medication list reviewed. Past History Past Medical History: No medical history Past Surgical History: No surgical history Social history: no significant social history Medications and Allergies Allergies Allergy/AdvReac Type Severity Reaction Status Date / Time No Known Allergies Allergy Unverified 02/04/21 18:30 Home Medications Medication Instructions Recorded Confirmed Last Taken Type No Known Home Medications [No 02/05/21 02/05/21 Unknown History Reported Home Medications] Active Meds: Active Medications Acetaminophen (Acetaminophen 325 Mg Tab) 650 mg PO Q4H PRN PRN Reason: Pain MILD(1-3)/Fever >100.5/SAENZ Guaifenesin (Guaifenesin Dm 200/20 Mg Oral Liqd 10 Ml) 10 ml PO Q4H PRN PRN Reason: Cough Last Admin: 02/07/21 12:28 Dose: 10 ml Documented by: Heparin Sodium (Porcine) (Heparin 5,000 Unit/1 Ml Vial) 5,000 unit SUB-Q Q8HR [place] Last Admin: 02/10/21 06:20 Dose: 5,000 unit Documented by: Melatonin (Melatonin 5 Mg Tab) 5 mg PO QHS PRN PRN Reason: Sleep Last Admin: 02/08/21 21:28 Dose: 5 mg Documented by: Olanzapine (Olanzapine 5 Mg Tab) 5 mg PO QDAY [place] Last Admin: 02/10/21 09:29 Dose: 5 mg Documented by: Ondansetron HCl (Ondansetron 4 Mg/2 Ml Inj) 4 mg IV Q8H PRN PRN Reason: Nausea And Vomiting Potassium Chloride (Potassium Chloride Er 20 Meq Tab) 40 meq PO BID [facility] Last Admin: 02/10/21 09:29 Dose: 40 meq Documented by: Sodium Chloride (Sodium Chloride 0.9% 10 Ml Flush Syringe) 10 ml IV BID [facility] Last Admin: 02/10/21 09:29 Dose: 10 ml Documented by: Sodium Chloride (Sodium Chloride 0.9% 10 Ml Flush Syringe) 10 ml IV PRN PRN PRN Reason: LINE FLUSH Last Admin: 02/06/21 06:23 Dose: 10 ml Documented by: Review of Systems - Review of Systems All systems: negative Constitutional: fever, weakness Cardiovascular: no chest pain Gastrointestinal: diarrhea, no abdominal pain, no melena, no hematochezia Rectal: no pain Neurological: weakness Psychiatric: no anxiety Hematologic/Lymphatic: no easy bruising Allergic/Immunologic: no wheezing Exam - Constitutional Vital Signs: Temp Pulse Resp BP Pulse Ox 97.4 F L 75 18 122/66 97 02/10/21 07:50 02/10/21 10:00 02/10/21 07:50 02/10/21 07:50 02/10/21 10:00 General appearance: no acute distress - EENT Eyes: EOM intact ENT: hearing intact - Respiratory Respiratory effort: normal - Cardiovascular Rhythm: regular Heart Sounds: Present: S1 & S2 - Gastrointestinal General gastrointestinal: Present: soft, non-tender, non-distended - Integumentary Integumentary: Present: clear, warm - Neurologic Neurological: oriented to person, oriented to place - Psychiatric Psychiatric: appropriate mood/affect - Labs CBC & Chem 7: 02/10/21 05:12 02/10/21 05:12 Lab Results: Laboratory Results - last 24 hr 02/10/21 02/10/21 05:12 05:12 WBC 3.5 L RBC 2.83 L Hgb 9.2 L Hct 27.9 L MCV 99 H MCH 32 MCHC 33 RDW 16.0 H Plt Count 262 Seg Neutrophils % [employer] Programmer Sodium 143 Potassium 3.7 Chloride 115.0 H Carbon Dioxide 17 L Anion Gap 15 BUN < 1 L Creatinine 0.4 L Estimated GFR > 60 BUN/Creatinine Ratio 3 Glucose 97 Calcium 8.2 L Magnesium 2.00 Total Bilirubin 0.60 AST 42 H ALT 15 Alkaline Phosphatase 75 Total Protein 5.1 L Albumin 2.1 L Albumin/Globulin Ratio 0.7 - Imaging CT Scan: report reviewed Assessment and Plan This is a 51 yo female with pmh of gastric bypass and recent admission at [facility] for colitis (discharged on 01/21/2021) admitted on 02/04/2021 for sob and near syncope. # Diarrhea - CT showing mild sigmoid colitis. - currently on empiric antibiotics - stool culture pending. - no BM overnight. - recent admission at [facility] for colitis earlier this month. - appears to be clinically improving. Rec - supportive care - cont with empiric antibiotics - Follow up in outpatient GI clinic for colonoscopy outpatient. - will sign off. please call back as needed.
[2021-02-10 18:34] LABS: Band Neutrophils # (Manual) 0.2 K/mm3; Platelet Estimate Consistent w Auto; Total Cells Counted 100
--- NOTE | 2021-02-10 20:14 | Progress Note ---
Assessment and Plan Assessment and plan: Acute colitis/diarrhea. Orthostatic hypotension, resolved Severe persistent hypokalemia, likely from GI losses Hypomagnesemia Non-anion gap metabolic acidosis with normal creatinine Confusion/disorientation likely from underlying dementia 02/05/2021. CT scan of the abdomen pelvis revealed mild sigmoid colitis. We will start IV antibiotics of Levaquin and Flagyl. Follow-up stool culture and f ecal leukocytes. Patient will have repletion of potassium and follow-up BMP later today and in a.m. Continue IV fluid hydration for orthostasis. Magnesium repleted. Anticipate discharge in a.m. 02/06/2021. Patient denies any diarrhea. We'll follow-up stool studies continue IV antibiotics of Levaquin and Flagyl. Patient still has significant hypokalemia. Replete potassium and follow-up BMP. Replete magnesium. Patient remains orthostatic. Continue IV fluid hydration and recheck orthostatic vital signs. 02/07/2021. Potassium improved to 3.2 yesterday. Recheck BMP this morning. Continue to replete potassium and magnesium as needed. Still awaiting stool studies for fecal leukocyte and culture. Continue IV antibiotics of Flagyl and Levaquin. Patient still with significant orthostasis this morning. Continue IV fluid hydration. 02/08/2021: Patient remains alert, verbal but confused/disoriented. The etiology appears to be dementia but acutely encephalopathy cannot rule out. Patient remains afebrile. Does not appear to be septic. She continues to have diarrhea with the severe persistent hypokalemia which is replenished on a daily basis. Discussed with the nursing staff. 02/09/2021: Patient remains pleasantly confused. No behavioral problems like agitation. Will likely from a dementia but acute encephalopathy, rule out. Psychiatry is following. Patient is on Zyprexa. Potassium remains low but seems to be improving. We will continue aggressive potassium replacement along with medicine replacement. Will discontinue IV fluids. Will discontinue antibiotics. Nursing staff reports that she has no diarrhea today. 02/10/2021: She is alert but remains confused/disoriented. Vital signs stable. No diarrhea reported. Patient states she has some pain in the LLQ. Tolerating diet well. Remains on the KCl 80 mg daily for persistent hypokalemia. Seen by GI today, no further work-up needed since symptoms resolving. Anticipating discharge soon. Discussed with the nursing staff and case management social worker. History Interval history: She is alert but remains confused/disoriented. Vital signs stable. No diarrhea reported. Patient states she has some pain in the LLQ. Tolerating diet well. Remains on the KCl 80 mg daily for persistent hypokalemia. Seen by GI today, no further work-up needed since symptoms resolving. Hospitalist Physical - Constitutional Vitals: Temp Pulse Resp BP Pulse Ox 97.9 F 90 18 123/67 100 02/10/21 16:56 02/10/21 16:56 02/10/21 16:56 02/10/21 16:56 02/10/21 16:56 General appearance: Present: no acute distress, well-nourished, other (Alert but confused/disoriented) - EENT Eyes: Present: PERRL ENT: clear oral mucosa - Neck Neck: Present: supple - Respiratory Respiratory effort: normal - Extremities Extremities: No edema - Abdominal General gastrointestinal: soft, tender (Mild tenderness in the LLQ with deep palpation, no masses), non-distended, normal bowel sounds - Integumentary Integumentary: Absent: rash - Psychiatric Psychiatric: other (calm but disoriented) - Neurologic Neurologic: moves all extremities, other (Alert but disoriented likely has underlying dementia, no focal motor deficits) HEART Score - HEART Score Troponin: Troponin T < 0.010 ng/mL (0.00-0.029) 02/04/21 20:42 Results - Labs CBC & Chem 7: 02/12/21 04:27 02/12/21 04:27 Labs: Laboratory Last Values WBC 3.5 K/mm3 (4.5-11.0) L 02/10/21 05:12 RBC 2.83 M/mm3 (3.65-5.03) L 02/10/21 05:12 Hgb 9.2 gm/dl (10.1-14.3) L 02/10/21 05:12 Hct 27.9 % (30.3-42.9) L 02/10/21 05:12 MCV 99 fl (79-97) H 02/10/21 05:12 MCH 32 pg (28-32) 02/10/21 05:12 MCHC 33 % (30-34) 02/10/21 05:12 RDW 16.0 % (13.2-15.2) H 02/10/21 05:12 Plt Count 262 K/mm3 (140-440) 02/10/21 05:12 Lymph % (Auto) 41.2 % (13.4-35.0) H 02/09/21 10:01 [place] % (Auto) 13.0 % (0.0-7.3) H 02/09/21 10:01 Eos % (Auto) 1.8 % (0.0-4.3) 02/09/21 10:01 Baso % (Auto) 0.9 % (0.0-1.8) 02/09/21 10:01 Lymph # (Auto) 1.5 K/mm3 (1.2-5.4) 02/09/21 10:01 [place] # (Auto) 0.5 K/mm3 (0.0-0.8) 02/09/21 10:01 Eos # (Auto) 0.1 K/mm3 (0.0-0.4) 02/09/21 10:01 Baso # (Auto) 0.0 K/mm3 (0.0-0.1) 02/09/21 10:01 Add Manual Diff Complete 02/10/21 05:12 Total Counted 100 02/10/21 05:12 Seg Neutrophils % Mgmt Specialist 02/10/21 05:12 Seg Neuts % (Manual) 66.0 % (40.0-70.0) 02/10/21 05:12 Band Neutrophils % 5.0 % 02/10/21 05:12 Lymphocytes % (Manual) 27.0 % (13.4-35.0) 02/10/21 05:12 Monocytes % (Manual) 1.0 % (0.0-7.3) 02/10/21 05:12 Eosinophils % (Manual) 3.0 % (0.0-4.3) 02/08/21 04:36 Basophils % (Manual) 1.0 % (0.0-1.8) 02/10/21 05:12 Nucleated RBC % Not Reportable 02/10/21 05:12 Seg Neutrophils # 1.6 K/mm3 (1.8-7.7) L 02/09/21 10:01 Seg Neutrophils # Man 2.3 K/mm3 (1.8-7.7) 02/10/21 05:12 Band Neutrophils # 0.2 K/mm3 02/10/21 05:12 Lymphocytes # (Manual) 0.9 K/mm3 (1.2-5.4) L 02/10/21 05:12 Abs React Lymphs (Man) 0.0 K/mm3 02/10/21 05:12 Monocytes # (Manual) 0.0 K/mm3 (0.0-0.8) 02/10/21 05:12 Eosinophils # (Manual) 0.0 K/mm3 (0.0-0.4) 02/10/21 05:12 Basophils # (Manual) 0.0 K/mm3 (0.0-0.1) 02/10/21 05:12 Metamyelocytes # 0.0 K/mm3 02/10/21 05:12 Myelocytes # 0.0 K/mm3 02/10/21 05:12 Promyelocytes # 0.0 K/mm3 02/10/21 05:12 Blast Cells # 0.0 K/mm3 02/10/21 05:12 WBC Morphology Not Reportable 02/10/21 05:12 Hypersegmented Neuts Not Reportable 02/10/21 05:12 Hyposegmented Neuts Not Reportable 02/10/21 05:12 Hypogranular Neuts Not Reportable 02/10/21 05:12 Smudge Cells Not Reportable 02/10/21 05:12 Toxic Granulation Not Reportable 02/10/21 05:12 Toxic Vacuolation Not Reportable 02/10/21 05:12 Dohle Bodies Not Reportable 02/10/21 05:12 Pelger-Huet Anomaly Not Reportable 02/10/21 05:12 Yadira Rods Not Reportable 02/10/21 05:12 Platelet Estimate Consistent w auto 02/10/21 05:12 Clumped Platelets Not Reportable 02/10/21 05:12 Plt Clumps, EDTA Not Reportable 02/10/21 05:12 Large Platelets Not Reportable 02/10/21 05:12 Giant Platelets Not Reportable 02/10/21 05:12 Platelet Satelliting Not Reportable 02/10/21 05:12 Plt Morphology Comment Not Reportable 02/10/21 05:12 RBC Morphology Not Reportable 02/10/21 05:12 Dimorphic RBCs Not Reportable 02/10/21 05:12 Polychromasia Not Reportable 02/10/21 05:12 Hypochromasia Not Reportable 02/10/21 05:12 Poikilocytosis Not Reportable 02/10/21 05:12 Anisocytosis Not Reportable 02/10/21 05:12 Microcytosis Not Reportable 02/10/21 05:12 Macrocytosis Not Reportable 02/10/21 05:12 Spherocytes Not Reportable 02/10/21 05:12 Pappenheimer Bodies Not Reportable 02/10/21 05:12 Sickle Cells Not Reportable 02/10/21 05:12 Target Cells Not Reportable 02/10/21 05:12 Tear Drop Cells Not Reportable 02/10/21 05:12 Ovalocytes Not Reportable 02/10/21 05:12 Helmet Cells Not Reportable 02/10/21 05:12 [place] Bodies Not Reportable 02/10/21 05:12 [place] Rings Not Reportable 02/10/21 05:12 [place] Cells Not Reportable 02/10/21 05:12 Bite Cells Not Reportable 02/10/21 05:12 Crenated Cell Not Reportable 02/10/21 05:12 Elliptocytes Not Reportable 02/10/21 05:12 Acanthocytes (Spur) Not Reportable 02/10/21 05:12 Rouleaux Not Reportable 02/10/21 05:12 Hemoglobin C Crystals Not Reportable 02/10/21 05:12 Schistocytes Not Reportable 02/10/21 05:12 Malaria parasites Not Reportable 02/10/21 05:12 [place] Bodies Not Reportable 02/10/21 05:12 Hem Pathologist Commnt No 02/10/21 05:12 PT 13.5 Sec. (12.2-14.9) 02/05/21 05:21 INR 0.93 (0.87-1.13) 02/05/21 05:21 Sodium 143 mmol/L (137-145) 02/10/21 05:12 Potassium 3.7 mmol/L (3.6-5.0) 02/10/21 05:12 Chloride 115.0 mmol/L (98-107) H 02/10/21 05:12 Carbon Dioxide 17 mmol/L (22-30) L 02/10/21 05:12 Anion Gap 15 mmol/L 02/10/21 05:12 BUN < 1 mg/dL (7-17) L 02/10/21 05:12 Creatinine 0.4 mg/dL (0.6-1.2) L 02/10/21 05:12 Estimated GFR > 60 ml/min 02/10/21 05:12 BUN/Creatinine Ratio 3 % 02/10/21 05:12 Glucose 97 mg/dL (65-100) 02/10/21 05:12 Calcium 8.2 mg/dL (8.4-10.2) L 02/10/21 05:12 Phosphorus 3.00 mg/dL (2.5-4.5) 02/04/21 20:42 Magnesium 2.00 mg/dL (1.7-2.3) 02/10/21 05:12 Total Bilirubin 0.60 mg/dL (0.1-1.2) 02/10/21 05:12 AST 42 units/L (5-40) H 02/10/21 05:12 ALT 15 units/L (7-56) 02/10/21 05:12 Alkaline Phosphatase 75 units/L (35-129) 02/10/21 05:12 Troponin T < 0.010 ng/mL (0.00-0.029) 02/04/21 20:42 Total Protein 5.1 g/dL (6.3-8.2) L 02/10/21 05:12 Albumin 2.1 g/dL (3.9-5) L 02/10/21 05:12 Albumin/Globulin Ratio 0.7 % 02/10/21 05:12 Salicylates < 0.3 mg/dL (2.8-20.0) L 02/04/21 22:29 Acetaminophen 5.0 ug/mL (10.0-30.0) L 02/04/21 22:29 Plasma/Serum Alcohol < 0.01 % (0-0.07) 02/04/21 22:29 Coronavirus (PCR) Negative (Negative) 02/07/21 Unknown [place]/IV: Voiding Method Bedside Commode Active Medications - Current Medications Current Medications: Generic Name Dose Route Start Last Admin Trade Name Freq PRN Reason Stop Dose Admin Acetaminophen 650 mg 02/04/21 23:44 Acetaminophen 325 Mg Tab PO Q4H PRN Pain MILD(1-3)/Fever >100.5/SAENZ Guaifenesin 10 ml 02/05/21 20:49 02/07/21 12:28 Guaifenesin Dm 200/20 Mg Oral Liqd 10 Ml PO 10 ml Q4H PRN Administration Cough Heparin Sodium (Porcine) 5,000 unit 02/05/21 06:00 02/10/21 13:54 Heparin 5,000 Unit/1 Ml Vial SUB-Q 5,000 unit Q8HR [place] Administration Melatonin 5 mg 02/07/21 00:58 02/08/21 21:28 Melatonin 5 Mg Tab PO 5 mg QHS PRN Administration Sleep Olanzapine 5 mg 02/08/21 12:00 02/10/21 09:29 Olanzapine 5 Mg Tab PO 5 mg QDAY [place] Administration Ondansetron HCl 4 mg 02/04/21 23:44 Ondansetron 4 Mg/2 Ml Inj IV Q8H PRN Nausea And Vomiting Potassium Chloride 40 meq 02/08/21 10:00 02/10/21 09:29 Potassium Chloride Er 20 Meq Tab PO 40 meq BID [place] Administration Sodium Chloride 10 ml 02/05/21 10:00 02/10/21 09:29 Sodium Chloride 0.9% 10 Ml Flush Syringe IV 10 ml BID [place] Administration Sodium Chloride 10 ml 02/04/21 23:44 02/06/21 06:23 Sodium Chloride 0.9% 10 Ml Flush Syringe IV 10 ml PRN PRN Administration LINE FLUSH
[2021-02-11] MEDS: HEPARIN 5,000 UNIT/1 ML VIAL SUB-Q SCH ×3 (06:07→21:22)
[2021-02-11 06:32] LABS: Eosinophils # (Auto) 0.1 K/mm3 (0.0-0.4); Eosinophils % (Auto) 2.7 % (0.0-4.3); Hematocrit 29.5 % (30.3-42.9); Hemoglobin 9.7 gm/dl (10.1-14.3); Lymphocytes # (Auto) 1.9 K/mm3 (1.2-5.4); Lymphocytes % (Auto) 47.7 % (13.4-35.0); Mean Corpuscular HGB Conc 33 % (30-34); Mean Corpuscular Volume 98 fl (79-97); Monocytes # (Auto) 0.4 K/mm3 (0.0-0.8); Monocytes % (Auto) 10.9 % (0.0-7.3); Platelet Count 265 K/mm3 (140-440); Red Blood Count 3.01 M/mm3 (3.65-5.03); Red Cell Distribution Width 15.9 % (13.2-15.2)
[2021-02-11 06:45] LABS: Alanine Aminotransferase 14 units/L (7-56); Albumin 2.1 g/dL (3.9-5); Calcium 8.2 mg/dL (8.4-10.2); Hemolysis Index 9
[2021-02-11 06:46] LABS: BUN/Creatinine Ratio 3; Blood Urea Nitrogen < 1 mg/dL (7-17)
[2021-02-11] MEDS: POTASSIUM CHLORIDE ER 20 MEQ TAB PO SCH ×2 (09:06→21:21)
--- NOTE | 2021-02-11 12:54 | Progress Note ---
Subjective - Reason for Consult Consult date: 02/11/21 Reason for consult: Mental health evaluation - Chief Complaint Chief complaint: The patient was seen today, she is alert and oriented. The patient is calm and cooperative. She is polite. She says she feels "okay." She denies SI/HI or any feelings of endangerment. She also denies hallucinations of any kind. REVIEW OF SYSTEMS Constitutional: Negative for weight loss ENT: Negative for stridor Respiratory: Negative for cough or hemoptysis All other systems reviewed and are negative MENTAL STATUS EXAMINATION General Appearance and Behavior: Age appropriate, dressed appropriately, calm and cooperative. Polite Cooperation: Cooperative Psychomotor Behavior: psychomotor normal Mood: okay Affect and affective range: congruent with stated mood Thought Process: Goal directed Thought Content: None Speech: Normal volume, Regular rate and rhythm, Suicidal Ideation: Denies Homicidal Ideation: Denies Hallucinations: Denies Delusions: None elicited Impulse Control: Unimpaired Insight and Judgment: limited insight and fair judgment, Memory: Normal Attention: divided Orientation: Alert, oriented Assessment and Plan (1)Unspecified mood disorder Treatment plan Continue previous prescribed meds Risks, benefits and alternatives of medications discussed with the patient, questions answered and consent obtained from patient. PSYCHOTHERAPY: Supportive psychotherapy provided MEDICAL: Per primary team DELIRIUM PRECAUTIONS: Please re-orient patient frequently, keep lights on during the day, and minimize benzodiazepines and opiates as these medications could worsen patient's confusion. HEALTH CARE MARKETING MANAGER: Per medical team DISPOSITION: Do not recommend acute inpatient psychiatric hospitalization. Will sing off. Thanks Thank you for the consult. Please contact with any questions and/or concerns. Case staffed with Dr. Carrillo Mental Status Exam - Vital signs Last Vital Signs Temp 97.7 F 02/11/21 07:49 Pulse 84 02/11/21 07:49 Resp 20 02/11/21 07:49 BP 125/71 02/11/21 07:49 Pulse Ox 98 02/11/21 07:49
[2021-02-11] MEDS ORDERED: MAGNESIUM SULFATE 2 GM/50 ML BAG IV ONE (17:00)
--- NOTE | 2021-02-11 18:53 | Progress Note ---
Assessment and Plan Assessment and plan: Acute colitis/diarrhea. Orthostatic hypotension, resolved Severe persistent hypokalemia, likely from GI losses Hypomagnesemia Non-anion gap metabolic acidosis with normal creatinine Chronic alcohol abuse, no symptoms of alcohol withdrawal currently Confusion/disorientation likely from underlying dementia, chronic alcohol abuse may be a factor CT brainno acute changes. Folate, B12 and TSH normal 02/05/2021. CT scan of the abdomen pelvis revealed mild sigmoid colitis. We will start IV antibiotics of Levaquin and Flagyl. Follow-up stool culture and fecal leukocytes. Patient will have repletion of potassium and follow-up BMP later today and in a.m. Continue IV fluid hydration for orthostasis. Magnesium repleted. Anticipate discharge in a.m. 02/06/2021. Patient denies any diarrhea. We'll follow-up stool studies continue IV antibiotics of Levaquin and Flagyl. Patient still has significant hypokalemia. Replete potassium and follow-up BMP. Replete magnesium. Patient remains orthostatic. Continue IV fluid hydration and recheck orthostatic vital signs. 02/07/2021. Potassium improved to 3.2 yesterday. Recheck BMP this morning. Continue to replete potassium and magnesium as needed. Still awaiting stool studies for fecal leukocyte and culture. Continue IV antibiotics of Flagyl and Levaquin. Patient still with significant orthostasis this morning. Continue IV fluid hydration. 02/08/2021: Patient remains alert, verbal but confused/disoriented. The etiology appears to be dementia but acutely encephalopathy cannot rule out. Patient remains afebrile. Does not appear to be septic. She continues to have diarrhea with the severe persistent hypokalemia which is replenished on a daily basis. Discussed with the nursing staff. 02/09/2021: Patient remains pleasantly confused. No behavioral problems like agitation. Will likely from a dementia but acute encephalopathy, rule out. Psychiatry is following. Patient is on Zyprexa. Potassium remains low but s eems to be improving. We will continue aggressive potassium replacement along with medicine replacement. Will discontinue IV fluids. Will discontinue antibiotics. Nursing staff reports that she has no diarrhea today. 02/10/2021: She is alert but remains confused/disoriented. Vital signs stable. No diarrhea reported. Patient states she has some pain in the LLQ. Tolerating diet well. Remains on the KCl 80 mg daily for persistent hypokalemia. Seen by GI today, no further work-up needed since symptoms resolving. Anticipating discharge soon. Discussed with the nursing staff and case management rn. 02/11/2021: She is alert but remains confused/disoriented. Vital signs stable. No diarrhea reported. Tolerating diet well. Remains on the KCl 80 mg daily for persistent hypokalemia. Oral total bicarb started and nephrology consulted for nongap metabolic acidosis. 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 Patient has been forgetful and confused since weeks. She refused alcohol rehab in the past. Anticipating discharge soon History Interval history: She is alert but remains confused/disoriented. Vital signs stable. No diarrhea reported. Tolerating diet well. Remains on the KCl 80 mg daily for persistent hypokalemia. Oral bicarbonate started and nephrology consulted for management of metabolic acidosis. flooring sales manager spoke to several family members today, patient has been alcoholic, drinking several alcoholic beverages daily as well as uses prescription narcotics. Patient has been forgetful and confused since weeks. She refused alcohol rehab in the past. Hospitalist Physical - Constitutional Vitals: Temp Pulse Resp BP Pulse Ox 97.9 F 84 18 112/69 96 02/11/21 15:46 02/11/21 15:46 02/11/21 15:46 02/11/21 15:46 02/11/21 15:46 General appearance: Present: no acute distress, well-nourished, other (Pleasantly confused/disoriented) - EENT Eyes: Present: PERRL, EOM intact ENT: clear oral mucosa - Neck Neck: Present: supple - Respiratory Respiratory effort: normal Respiratory: bilateral: CTA - Cardiovascular Rhythm: regular - Extremities Extremities: No edema - Abdominal General gastrointestinal: soft, non-tender, tender (Minimal tenderness in the LLQ on deep palpation), non-distended, normal bowel sounds - Integumentary Integumentary: Absent: rash - Psychiatric Psychiatric: other (calm) - Neurologic Neurologic: moves all extremities, other (Pleasantly confused/disoriented with memory impairment) HEART Score - HEART Score Troponin: Troponin T < 0.010 ng/mL (0.00-0.029) 02/04/21 20:42 Results - Labs CBC & Chem 7: 02/12/21 04:27 02/12/21 04:27 Labs: Laboratory Last Values WBC 4.0 K/mm3 (4.5-11.0) L 02/11/21 04:16 RBC 3.01 M/mm3 (3.65-5.03) L 02/11/21 04:16 Hgb 9.7 gm/dl (10.1-14.3) L 02/11/21 04:16 Hct 29.5 % (30.3-42.9) L 02/11/21 04:16 MCV 98 fl (79-97) H 02/11/21 04:16 MCH 32 pg (28-32) 02/11/21 04:16 MCHC 33 % (30-34) 02/11/21 04:16 RDW 15.9 % (13.2-15.2) H 02/11/21 04:16 Plt Count 265 K/mm3 (140-440) 02/11/21 04:16 Lymph % (Auto) 47.7 % (13.4-35.0) H 02/11/21 04:16 Ida % (Auto) 10.9 % (0.0-7.3) H 02/11/21 04:16 Eos % (Auto) 2.7 % (0.0-4.3) 02/11/21 04:16 Baso % (Auto) 1.0 % (0.0-1.8) 02/11/21 04:16 Lymph # (Auto) 1.9 K/mm3 (1.2-5.4) 02/11/21 04:16 Ida # (Auto) 0.4 K/mm3 (0.0-0.8) 02/11/21 04:16 Eos # (Auto) 0.1 K/mm3 (0.0-0.4) 02/11/21 04:16 Baso # (Auto) 0.0 K/mm3 (0.0-0.1) 02/11/21 04:16 Add Manual Diff Complete 02/10/21 05:12 Total Counted 100 02/10/21 05:12 Seg Neutrophils % 37.7 % (40.0-70.0) L 02/11/21 04:16 Seg Neuts % (Manual) 66.0 % (40.0-70.0) 02/10/21 05:12 Band Neutrophils % 5.0 % 02/10/21 05:12 Lymphocytes % (Manual) 27.0 % (13.4-35.0) 02/10/21 05:12 Monocytes % (Manual) 1.0 % (0.0-7.3) 02/10/21 05:12 Eosinophils % (Manual) 3.0 % (0.0-4.3) 02/08/21 04:36 Basophils % (Manual) 1.0 % (0.0-1.8) 02/10/21 05:12 Nucleated RBC % Not Reportable 02/10/21 05:12 Seg Neutrophils # 1.5 K/mm3 (1.8-7.7) L 02/11/21 04:16 Seg Neutrophils # Man 2.3 K/mm3 (1.8-7.7) 02/10/21 05:12 Band Neutrophils # 0.2 K/mm3 02/10/21 05:12 Lymphocytes # (Manual) 0.9 K/mm3 (1.2-5.4) L 02/10/21 05:12 Abs React Lymphs (Man) 0.0 K/mm3 02/10/21 05:12 Monocytes # (Manual) 0.0 K/mm3 (0.0-0.8) 02/10/21 05:12 Eosinophils # (Manual) 0.0 K/mm3 (0.0-0.4) 02/10/21 05:12 Basophils # (Manual) 0.0 K/mm3 (0.0-0.1) 02/10/21 05:12 Metamyelocytes # 0.0 K/mm3 02/10/21 05:12 Myelocytes # 0.0 K/mm3 02/10/21 05:12 Promyelocytes # 0.0 K/mm3 02/10/21 05:12 Blast Cells # 0.0 K/mm3 02/10/21 05:12 WBC Morphology Not Reportable 02/10/21 05:12 Hypersegmented Neuts Not Reportable 02/10/21 05:12 Hyposegmented Neuts Not Reportable 02/10/21 05:12 Hypogranular Neuts Not Reportable 02/10/21 05:12 Smudge Cells Not Reportable 02/10/21 05:12 Toxic Granulation Not Reportable 02/10/21 05:12 Toxic Vacuolation Not Reportable 02/10/21 05:12 Dohle Bodies Not Reportable 02/10/21 05:12 Pelger-Huet Anomaly Not Reportable 02/10/21 05:12 Yadira Rods Not Reportable 02/10/21 05:12 Platelet Estimate Consistent w auto 02/10/21 05:12 Clumped Platelets Not Reportable 02/10/21 05:12 Plt Clumps, EDTA Not Reportable 02/10/21 05:12 Large Platelets Not Reportable 02/10/21 05:12 Giant Platelets Not Reportable 02/10/21 05:12 Platelet Satelliting Not Reportable 02/10/21 05:12 Plt Morphology Comment Not Reportable 02/10/21 05:12 RBC Morphology Not Reportable 02/10/21 05:12 Dimorphic RBCs Not Reportable 02/10/21 05:12 Polychromasia Not Reportable 02/10/21 05:12 Hypochromasia Not Reportable 02/10/21 05:12 Poikilocytosis Not Reportable 02/10/21 05:12 Anisocytosis Not Reportable 02/10/21 05:12 Microcytosis Not Reportable 02/10/21 05:12 Macrocytosis Not Reportable 02/10/21 05:12 Spherocytes Not Reportable 02/10/21 05:12 Pappenheimer Bodies Not Reportable 02/10/21 05:12 Sickle Cells Not Reportable 02/10/21 05:12 Target Cells Not Reportable 02/10/21 05:12 Tear Drop Cells Not Reportable 02/10/21 05:12 Ovalocytes Not Reportable 02/10/21 05:12 Helmet Cells Not Reportable 02/10/21 05:12 [place] Bodies Not Reportable 02/10/21 05:12 [place] Rings Not Reportable 02/10/21 05:12 Kym Cells Not Reportable 02/10/21 05:12 Bite Cells Not Reportable 02/10/21 05:12 Crenated Cell Not Reportable 02/10/21 05:12 Elliptocytes Not Reportable 02/10/21 05:12 Acanthocytes (Spur) Not Reportable 02/10/21 05:12 Rouleaux Not Reportable 02/10/21 05:12 Hemoglobin C Crystals Not Reportable 02/10/21 05:12 Schistocytes Not Reportable 02/10/21 05:12 Malaria parasites Not Reportable 02/10/21 05:12 [place] Bodies Not Reportable 02/10/21 05:12 Hem Pathologist Commnt No 02/10/21 05:12 PT 13.5 Sec. (12.2-14.9) 02/05/21 05:21 INR 0.93 (0.87-1.13) 02/05/21 05:21 Sodium 140 mmol/L (137-145) 02/11/21 04:16 Potassium 3.7 mmol/L (3.6-5.0) 02/11/21 04:16 Chloride 111.9 mmol/L (98-107) H 02/11/21 04:16 Carbon Dioxide 17 mmol/L (22-30) L 02/11/21 04:16 Anion Gap 15 mmol/L 02/11/21 04:16 BUN < 1 mg/dL (7-17) L 02/11/21 04:16 Creatinine 0.4 mg/dL (0.6-1.2) L 02/11/21 04:16 Estimated GFR > 60 ml/min 02/11/21 04:16 BUN/Creatinine Ratio 3 % 02/11/21 04:16 Glucose 95 mg/dL (65-100) 02/11/21 04:16 Calcium 8.2 mg/dL (8.4-10.2) L 02/11/21 04:16 Phosphorus 3.00 mg/dL (2.5-4.5) 02/04/21 20:42 Magnesium 1.70 mg/dL (1.7-2.3) 02/11/21 04:16 Total Bilirubin 0.60 mg/dL (0.1-1.2) 02/11/21 04:16 AST 42 units/L (5-40) H 02/11/21 04:16 ALT 14 units/L (7-56) 02/11/21 04:16 Alkaline Phosphatase 79 units/L (35-129) 02/11/21 04:16 Troponin T < 0.010 ng/mL (0.00-0.029) 02/04/21 20:42 Total Protein 5.1 g/dL (6.3-8.2) L 02/11/21 04:16 Albumin 2.1 g/dL (3.9-5) L 02/11/21 04:16 Albumin/Globulin Ratio 0.7 % 02/11/21 04:16 Salicylates < 0.3 mg/dL (2.8-20.0) L 02/04/21 22:29 Acetaminophen 5.0 ug/mL (10.0-30.0) L 02/04/21 22:29 Plasma/Serum Alcohol < 0.01 % (0-0.07) 02/04/21 22:29 Coronavirus (PCR) Negative (Negative) 02/07/21 Unknown Microbiology: Microbiology 02/07/21 Unknown Stool Stool Culture - Final 02/07/21 Unknown Stool Stool for WBCs - Final [place]/IV: Voiding Method Bedside Commode Active Medications - Current Medications Current Medications: Generic Name Dose Route Start Last Admin Trade Name Freq PRN Reason Stop Dose Admin Acetaminophen 650 mg 02/04/21 23:44 Acetaminophen 325 Mg Tab PO Q4H PRN Pain MILD(1-3)/Fever >100.5/SAENZ Guaifenesin 10 ml 02/05/21 20:49 02/07/21 12:28 Guaifenesin Dm 200/20 Mg Oral Liqd 10 Ml PO 10 ml Q4H PRN Administration Cough Heparin Sodium (Porcine) 5,000 unit 02/05/21 06:00 02/11/21 14:02 Heparin 5,000 Unit/1 Ml Vial SUB-Q 5,000 unit Q8HR [place] Administration Magnesium Sulfate 2 gm in 50 mls @ 25 mls/hr 02/11/21 17:00 02/11/21 17:29 Magnesium Sulfate 2gm/50ml IV 02/11/21 18:59 25 mls/hr ONCE ONE Administration Melatonin 5 mg 02/07/21 00:58 02/08/21 21:28 Melatonin 5 Mg Tab PO 5 mg QHS PRN Administration Sleep Olanzapine 5 mg 02/08/21 12:00 02/11/21 09:06 Olanzapine 5 Mg Tab PO 5 mg QDAY [place] Administration Ondansetron HCl 4 mg 02/04/21 23:44 Ondansetron 4 Mg/2 Ml Inj IV Q8H PRN Nausea And Vomiting Potassium Chloride 40 meq 02/08/21 10:00 02/11/21 09:06 Potassium Chloride Er 20 Meq Tab PO 40 meq BID [place] Administration Sodium Bicarbonate 650 mg 02/11/21 22:00 Sodium Bicarbonate 650 Mg Tab PO BID [place] Sodium Chloride 10 ml 02/05/21 10:00 02/11/21 09:06 Sodium Chloride 0.9% 10 Ml Flush Syringe IV 10 ml BID [place] Administration Sodium Chloride 10 ml 02/04/21 23:44 02/06/21 06:23 Sodium Chloride 0.9% 10 Ml Flush Syringe IV 10 ml PRN PRN Administration LINE FLUSH
[2021-02-11] MEDS: SODIUM BICARBONATE 650 MG TAB PO SCH (21:20)
[2021-02-11] MEDS ORDERED: SODIUM BICARBONATE 650 MG TAB PO SCH (22:00)
[2021-02-12] MEDS: HEPARIN 5,000 UNIT/1 ML VIAL SUB-Q SCH ×3 (05:30→22:03)
[2021-02-12 05:56] LABS: Basophils % (Auto) 0.9 % (0.0-1.8); Eosinophils # (Auto) 0.1 K/mm3 (0.0-0.4); Eosinophils % (Auto) 2.1 % (0.0-4.3); Hematocrit 29.8 % (30.3-42.9); Hemoglobin 9.7 gm/dl (10.1-14.3); Lymphocytes # (Auto) 1.7 K/mm3 (1.2-5.4); Lymphocytes % (Auto) 41.2 % (13.4-35.0); Mean Corpuscular HGB Conc 33 % (30-34); Mean Corpuscular Volume 100 fl (79-97); Monocytes # (Auto) 0.4 K/mm3 (0.0-0.8); Monocytes % (Auto) 10.7 % (0.0-7.3); Platelet Count 288 K/mm3 (140-440); Red Cell Distribution Width 15.9 % (13.2-15.2)
[2021-02-12 06:10] LABS: Alanine Aminotransferase 15 units/L (7-56); Calcium 8.4 mg/dL (8.4-10.2); Hemolysis Index 6
[2021-02-12 06:31] LABS: BUN/Creatinine Ratio 2; Blood Urea Nitrogen < 1 mg/dL (7-17)
[2021-02-12] MEDS: POTASSIUM CHLORIDE ER 20 MEQ TAB PO SCH ×2 (09:31→22:03)
[2021-02-12] MEDS: SODIUM BICARBONATE 650 MG TAB PO SCH ×2 (09:31→22:03)
[2021-02-12] MEDS: levoFLOXacin 500 MG TAB PO SCH (09:31)
[2021-02-12] MEDS: metroNIDAZOLE 500 MG TAB PO SCH ×2 (09:31→16:36)
--- NOTE | 2021-02-12 13:07 | Consultation ---
History of Present Illness - Reason for Consult Consult date: 02/12/21 metabolic acidosis - History of Present Illness The patient is a 51 YO female with known history of gastric bypass about a year ago who presented to [facility] ED 02/04 with complaining of dizziness, shortness of breath and near syncope. Patient is a poor historian. Patient was feelinf dizzy on standing. She also reported nausea, vomiting, diarrhea and low-grade fever at home. Currently patient denies any complaint. Upon arrival to the ED patient was found to be tachycardic and also orthostatic. Intial labs significant for K 2. Nephrology was consulted for persistent hyperchloremic metabolic acidosis. Past History Past Medical History: No medical history Past Surgical History: No surgical history Social history: no significant social history Medications and Allergies Allergies Allergy/AdvReac Type Severity Reaction Status Date / Time No Known Allergies Allergy Unverified 02/04/21 18:30 Home Medications Medication Instructions Recorded Confirmed Last Taken Type No Known Home Medications [No 02/05/21 02/05/21 Unknown History Reported Home Medications] Active Meds: Active Medications Acetaminophen (Acetaminophen 325 Mg Tab) 650 mg PO Q4H PRN PRN Reason: Pain MILD(1-3)/Fever >100.5/SAENZ Guaifenesin (Guaifenesin Dm 200/20 Mg Oral Liqd 10 Ml) 10 ml PO Q4H PRN PRN Reason: Cough Last Admin: 02/07/21 12:28 Dose: 10 ml Documented by: Heparin Sodium (Porcine) (Heparin 5,000 Unit/1 Ml Vial) 5,000 unit SUB-Q Q8HR [place] Last Admin: 02/12/21 05:30 Dose: 5,000 unit Documented by: Levofloxacin (Levofloxacin 500 Mg Tab) 500 mg PO Q24HR [place]; Protocol Last Admin: 02/12/21 09:31 Dose: 500 mg Documented by: Melatonin (Melatonin 5 Mg Tab) 5 mg PO QHS PRN PRN Reason: Sleep Last Admin: 02/08/21 21:28 Dose: 5 mg Documented by: Metronidazole (Metronidazole 500 Mg Tab) 500 mg PO Q8H [place]; Protocol Last Admin: 02/12/21 09:31 Dose: 500 mg Documented by: Olanzapine (Olanzapine 5 Mg Tab) 5 mg PO QDAY [place] Last Admin: 02/12/21 09:31 Dose: 5 mg Documented by: Ondansetron HCl (Ondansetron 4 Mg/2 Ml Inj) 4 mg IV Q8H PRN PRN Reason: Nausea And Vomiting Potassium Chloride (Potassium Chloride Er 20 Meq Tab) 40 meq PO BID [facility] Last Admin: 02/12/21 09:31 Dose: 40 meq Documented by: Sodium Bicarbonate (Sodium Bicarbonate 650 Mg Tab) 1,300 mg PO BID [facility] Last Admin: 02/12/21 09:31 Dose: 1,300 mg Documented by: Sodium Chloride (Sodium Chloride 0.9% 10 Ml Flush Syringe) 10 ml IV BID [facility] Last Admin: 02/12/21 09:31 Dose: 10 ml Documented by: Sodium Chloride (Sodium Chloride 0.9% 10 Ml Flush Syringe) 10 ml IV PRN PRN PRN Reason: LINE FLUSH Last Admin: 02/06/21 06:23 Dose: 10 ml Documented by: Review of Systems All systems: negative Exam - Vital Signs Vital signs: Vital Signs Temp Pulse Resp BP Pulse Ox 99.6 F 103 H 18 103/66 98 02/04/21 18:28 02/04/21 18:28 02/04/21 18:28 02/04/21 18:28 02/04/21 18:28 Results - Lab Results 02/12/21 04:27 02/12/21 04:27 Most recent lab results Calcium 8.4 mg/dL (8.4-10.2) 02/12/21 04:27 Phosphorus 3.00 mg/dL (2.5-4.5) 02/04/21 20:42 Magnesium 1.90 mg/dL (1.7-2.3) 02/12/21 04:27 Assessment and Plan 1. Hyperchloremic metabolic acidosis: Likely 2/2 GI loss. Continue Sod bicarbonate and adjust if needed. Monitor. 2. FEN: Severe hypokalemia, likely from GI losses, improved now. Monitor lytes and volume status. 3. Acute colitis/diarrhea: Seen by GI. Patient denies any diarrhea now. 4. Orthostatic hypotension: Resolved. 5. Chronic alcohol abuse: No e/o withdrawal. 6. Confusion/disorientation: Likely from underlying dementia, chronic alcohol abuse. CT brainno acute changes. Low Folate; B12 and TSH normal. Will sign off. F/u with me after d/c. Subjective: Patient was seen and examined at the bedside. Examination: General appearance: well-developed, obese, appears emaciated, no distress HEENT: atraumatic Eyes: pupils equal Neck: trachea midline Respiratory: ctab Heart: S1S2, no murmur Abdomen: soft, not distended, bowel sounds heard, NT Integumentary: no obvious rash Neurologic: AO, able to move extremities Ext: no edema
--- NOTE | 2021-02-12 17:55 | Progress Note ---
Assessment and Plan Assessment and plan: Acute colitis/diarrhea. Orthostatic hypotension, resolved Severe persistent hypokalemia, likely from GI losses Hypochloremic metabolic acidosis, nephrology consulted Hypomagnesemia Non-anion gap metabolic acidosis with normal creatinine Chronic alcohol abuse, patient has a bender machine, no symptoms of alcohol withdrawal currently, placed on thiamine Confusion/disorientation likely from underlying dementia, chronic alcohol abuse may be a factor CT brainno acute changes. Folic acid deficiency, level 4.7. Folic acid supplementation started. B12 and TSH normal 02/05/2021. CT scan of the abdomen pelvis revealed mild sigmoid colitis. We will start IV antibiotics of Levaquin and Flagyl. Follow-up stool culture and fecal leukocytes. Patient will have repletion of potassium and follow-up BMP later today and in a.m. Continue IV fluid hydration for orthostasis. Magnesium repleted. Anticipate discharge in a.m. 02/06/2021. Patient denies any diarrhea. We'll follow-up stool studies continue IV antibiotics of Levaquin and Flagyl. Patient still has significant hypokalemia. Replete potassium and follow-up BMP. Replete magnesium. Patient remains orthostatic. Continue IV fluid hydration and recheck orthostatic vital signs. 02/07/2021. Potassium improved to 3.2 yesterday. Recheck BMP this morning. Continue to replete potassium and magnesium as needed. Still awaiting stool studies for fecal leukocyte and culture. Continue IV antibiotics of Flagyl and Levaquin. Patient still with significant orthostasis this morning. Continue IV fluid hydration. 02/08/2021: Patient remains alert, verbal but confused/disoriented. The etiology appears to be dementia but acutely encephalopathy cannot rule out. Patient remains afebrile. Does not appear to be septic. She continues to have diarrhea with the severe persistent hypokalemia which is replenished on a daily basis. Discussed with the nursing staff. 02/09/2021: Patient remains pleasantly confused. No behavioral problems like agitation. Will likely from a dementia but acute encephalopathy, rule out. Psychiatry is following. Patient is on Zyprexa. Potassium remains low but seems to be improving. We will continue aggressive potassium replacement along with medicine replacement. Will discontinue IV fluids. Will discontinue antibiotics. Nursing staff reports that she has no diarrhea today. 02/10/2021: She is alert but remains confused/disoriented. Vital signs stable. No diarrhea reported. Patient states she has some pain in the LLQ. Tolerating diet well. Remains on the KCl 80 mg daily for persistent hypokalemia. Seen by GI today, no further work-up needed since symptoms resolving. Anticipating discharge soon. Discussed with the nursing staff and case management rn. 02/11/2021: She is alert but remains confused/disoriented. Vital signs stable. No diarrhea reported. Tolerating diet well. Remains on the KCl 80 mg daily for persistent hypokalemia. Oral total bicarb started and nephrology consulted for nongap metabolic acidosis. manager front office spoke to several family members today, patient has been alcoholic drinking several alcoholic beverages daily as well as uses prescription narcotics. Patient has been forgetful and confused since weeks. She refused alcohol rehab in the past. Anticipating discharge soon 02/12/2021: Patient remains fully alert with fluent speech and disorientation unchanged. Potassium level is inching up daily KCl 80 mg supplementation. Bicarb slowly coming up oral bicarb supplementation. Nephrology consulted for hypochloremic metabolic acidosis. Neurology consulted. Anticipating discharge soon History Interval history: She is alert but remains confused/disoriented. Vital signs stable. No diarrhea reported. Tolerating diet well. Remains on the KCl 80 mg daily for persistent hypokalemia. Oral bicarbonate started and nephrology consulted for management of hypochloremic metabolic acidosis. Hospitalist Physical - Constitutional Vitals: Temp Pulse Resp BP Pulse Ox 98.0 F 87 16 126/85 99 02/12/21 15:35 02/12/21 15:35 02/12/21 15:35 02/12/21 15:35 02/12/21 15:35 General appearance: Present: no acute distress, well-nourished, other (Pleasantly confused/disoriented) - EENT Eyes: Present: PERRL, EOM intact ENT: hearing intact, clear oral mucosa - Neck Neck: Present: supple - Respiratory Respiratory effort: normal Respiratory: bilateral: CTA - Cardiovascular Rhythm: regular - Extremities Extremities: No edema - Abdominal General gastrointestinal: soft, non-tender, non-distended, normal bowel sounds, other (No masses) - Integumentary Integumentary: Absent: rash - Psychiatric Psychiatric: other (Alert, confused but calm) - Neurologic Neurologic: other (Alert, normal speech, memory impaired and disoriented. No focal motor deficits. No tremors.) HEART Score - HEART Score Troponin: Troponin T < 0.010 ng/mL (0.00-0.029) 02/04/21 20:42 Results - Labs CBC & Chem 7: 02/12/21 04:27 02/12/21 04:27 Labs: Laboratory Last Values WBC 4.2 K/mm3 (4.5-11.0) L 02/12/21 04:27 RBC 3.00 M/mm3 (3.65-5.03) L 02/12/21 04:27 Hgb 9.7 gm/dl (10.1-14.3) L 02/12/21 04:27 Hct 29.8 % (30.3-42.9) L 02/12/21 04:27 MCV 100 fl (79-97) H 02/12/21 04:27 MCH 32 pg (28-32) 02/12/21 04:27 MCHC 33 % (30-34) 02/12/21 04:27 RDW 15.9 % (13.2-15.2) H 02/12/21 04:27 Plt Count 288 K/mm3 (140-440) 02/12/21 04:27 Lymph % (Auto) 41.2 % (13.4-35.0) H 02/12/21 04:27 [place] % (Auto) 10.7 % (0.0-7.3) H 02/12/21 04:27 Eos % (Auto) 2.1 % (0.0-4.3) 02/12/21 04:27 Baso % (Auto) 0.9 % (0.0-1.8) 02/12/21 04:27 Lymph # (Auto) 1.7 K/mm3 (1.2-5.4) 02/12/21 04:27 [place] # (Auto) 0.4 K/mm3 (0.0-0.8) 02/12/21 04:27 Eos # (Auto) 0.1 K/mm3 (0.0-0.4) 02/12/21 04:27 Baso # (Auto) 0.0 K/mm3 (0.0-0.1) 02/12/21 04:27 Add Manual Diff Complete 02/10/21 05:12 Total Counted 100 02/10/21 05:12 Seg Neutrophils % 45.1 % (40.0-70.0) 02/12/21 04:27 Seg Neuts % (Manual) 66.0 % (40.0-70.0) 02/10/21 05:12 Band Neutrophils % 5.0 % 02/10/21 05:12 Lymphocytes % (Manual) 27.0 % (13.4-35.0) 02/10/21 05:12 Monocytes % (Manual) 1.0 % (0.0-7.3) 02/10/21 05:12 Eosinophils % (Manual) 3.0 % (0.0-4.3) 02/08/21 04:36 Basophils % (Manual) 1.0 % (0.0-1.8) 02/10/21 05:12 Nucleated RBC % Not Reportable 02/10/21 05:12 Seg Neutrophils # 1.9 K/mm3 (1.8-7.7) 02/12/21 04:27 Seg Neutrophils # Man 2.3 K/mm3 (1.8-7.7) 02/10/21 05:12 Band Neutrophils # 0.2 K/mm3 02/10/21 05:12 Lymphocytes # (Manual) 0.9 K/mm3 (1.2-5.4) L 02/10/21 05:12 Abs React Lymphs (Man) 0.0 K/mm3 02/10/21 05:12 Monocytes # (Manual) 0.0 K/mm3 (0.0-0.8) 02/10/21 05:12 Eosinophils # (Manual) 0.0 K/mm3 (0.0-0.4) 02/10/21 05:12 Basophils # (Manual) 0.0 K/mm3 (0.0-0.1) 02/10/21 05:12 Metamyelocytes # 0.0 K/mm3 02/10/21 05:12 Myelocytes # 0.0 K/mm3 02/10/21 05:12 Promyelocytes # 0.0 K/mm3 02/10/21 05:12 Blast Cells # 0.0 K/mm3 02/10/21 05:12 WBC Morphology Not Reportable 02/10/21 05:12 Hypersegmented Neuts Not Reportable 02/10/21 05:12 Hyposegmented Neuts Not Reportable 02/10/21 05:12 Hypogranular Neuts Not Reportable 02/10/21 05:12 Smudge Cells Not Reportable 02/10/21 05:12 Toxic Granulation Not Reportable 02/10/21 05:12 Toxic Vacuolation Not Reportable 02/10/21 05:12 Dohle Bodies Not Reportable 02/10/21 05:12 Pelger-Huet Anomaly Not Reportable 02/10/21 05:12 Yadira Rods Not Reportable 02/10/21 05:12 Platelet Estimate Consistent w auto 02/10/21 05:12 Clumped Platelets Not Reportable 02/10/21 05:12 Plt Clumps, EDTA Not Reportable 02/10/21 05:12 Large Platelets Not Reportable 02/10/21 05:12 Giant Platelets Not Reportable 02/10/21 05:12 Platelet Satelliting Not Reportable 02/10/21 05:12 Plt Morphology Comment Not Reportable 02/10/21 05:12 RBC Morphology Not Reportable 02/10/21 05:12 Dimorphic RBCs Not Reportable 02/10/21 05:12 Polychromasia Not Reportable 02/10/21 05:12 Hypochromasia Not Reportable 02/10/21 05:12 Poikilocytosis Not Reportable 02/10/21 05:12 Anisocytosis Not Reportable 02/10/21 05:12 Microcytosis Not Reportable 02/10/21 05:12 Macrocytosis Not Reportable 02/10/21 05:12 Spherocytes Not Reportable 02/10/21 05:12 Pappenheimer Bodies Not Reportable 02/10/21 05:12 Sickle Cells Not Reportable 02/10/21 05:12 Target Cells Not Reportable 02/10/21 05:12 Tear Drop Cells Not Reportable 02/10/21 05:12 Ovalocytes Not Reportable 02/10/21 05:12 Helmet Cells Not Reportable 02/10/21 05:12 [place] Bodies Not Reportable 02/10/21 05:12 [place] Rings Not Reportable 02/10/21 05:12 [place] Cells Not Reportable 02/10/21 05:12 Bite Cells Not Reportable 02/10/21 05:12 Crenated Cell Not Reportable 02/10/21 05:12 Elliptocytes Not Reportable 02/10/21 05:12 Acanthocytes (Spur) Not Reportable 02/10/21 05:12 Rouleaux Not Reportable 02/10/21 05:12 Hemoglobin C Crystals Not Reportable 02/10/21 05:12 Schistocytes Not Reportable 02/10/21 05:12 Malaria parasites Not Reportable 02/10/21 05:12 [place] Bodies Not Reportable 02/10/21 05:12 Hem Pathologist Commnt No 02/10/21 05:12 PT 13.5 Sec. (12.2-14.9) 02/05/21 05:21 INR 0.93 (0.87-1.13) 02/05/21 05:21 Sodium 140 mmol/L (137-145) 02/12/21 04:27 Potassium 4.2 mmol/L (3.6-5.0) 02/12/21 04:27 Chloride 110.6 mmol/L (98-107) H 02/12/21 04:27 Carbon Dioxide 19 mmol/L (22-30) L 02/12/21 04:27 Anion Gap 15 mmol/L 02/12/21 04:27 BUN < 1 mg/dL (7-17) L 02/12/21 04:27 Creatinine 0.5 mg/dL (0.6-1.2) L 02/12/21 04:27 Estimated GFR > 60 ml/min 02/12/21 04:27 BUN/Creatinine Ratio 2 % 02/12/21 04:27 Glucose 103 mg/dL (65-100) H 02/12/21 04:27 Calcium 8.4 mg/dL (8.4-10.2) 02/12/21 04:27 Phosphorus 3.00 mg/dL (2.5-4.5) 02/04/21 20:42 Magnesium 1.90 mg/dL (1.7-2.3) 02/12/21 04:27 Total Bilirubin 0.60 mg/dL (0.1-1.2) 02/12/21 04:27 AST 54 units/L (5-40) H 02/12/21 04:27 ALT 15 units/L (7-56) 02/12/21 04:27 Alkaline Phosphatase 88 units/L (35-129) 02/12/21 04:27 Troponin T < 0.010 ng/mL (0.00-0.029) 02/04/21 20:42 Total Protein 5.3 g/dL (6.3-8.2) L 02/12/21 04:27 Albumin 2.0 g/dL (3.9-5) L 02/12/21 04:27 Albumin/Globulin Ratio 0.6 % 02/12/21 04:27 Vitamin B12 > 2000 pg/mL (211-911) H 02/11/21 19:13 Folate 4.70 ng/mL (7.3-26.0) L 02/11/21 19:13 TSH 1.570 mlU/mL (0.270-4.200) 02/11/21 19:13 Salicylates < 0.3 mg/dL (2.8-20.0) L 02/04/21 22:29 Acetaminophen 5.0 ug/mL (10.0-30.0) L 02/04/21 22:29 Plasma/Serum Alcohol < 0.01 % (0-0.07) 02/04/21 22:29 Syphilis IgG Antibody Nonreactive (NonReactive) 02/11/21 19:13 Coronavirus (PCR) Negative (Negative) 02/07/21 Unknown [place]/IV: Voiding Method Bedside Commode Active Medications - Current Medications Current Medications: Generic Name Dose Route Start Last Admin Trade Name Freq PRN Reason Stop Dose Admin Acetaminophen 650 mg 02/04/21 23:44 Acetaminophen 325 Mg Tab PO Q4H PRN Pain MILD(1-3)/Fever >100.5/SAENZ Guaifenesin 10 ml 02/05/21 20:49 02/07/21 12:28 Guaifenesin Dm 200/20 Mg Oral Liqd 10 Ml PO 10 ml Q4H PRN Administration Cough Heparin Sodium (Porcine) 5,000 unit 02/05/21 06:00 02/12/21 13:20 Heparin 5,000 Unit/1 Ml Vial SUB-Q 5,000 unit Q8HR [place] Administration Levofloxacin 500 mg 02/12/21 10:00 02/12/21 09:31 Levofloxacin 500 Mg Tab PO 500 mg Q24HR [place] Administration Protocol Melatonin 5 mg 02/07/21 00:58 02/08/21 21:28 Melatonin 5 Mg Tab PO 5 mg QHS PRN Administration Sleep Metronidazole 500 mg 02/12/21 08:00 02/12/21 16:36 Metronidazole 500 Mg Tab PO 500 mg Q8H [place] Administration Protocol Olanzapine 5 mg 02/08/21 12:00 02/12/21 09:31 Olanzapine 5 Mg Tab PO 5 mg QDAY [place] Administration Ondansetron HCl 4 mg 02/04/21 23:44 Ondansetron 4 Mg/2 Ml Inj IV Q8H PRN Nausea And Vomiting Potassium Chloride 40 meq 02/08/21 10:00 02/12/21 09:31 Potassium Chloride Er 20 Meq Tab PO 40 meq BID [place] Administration Sodium Bicarbonate 1,300 mg 02/11/21 22:00 02/12/21 09:31 Sodium Bicarbonate 650 Mg Tab PO 1,300 mg BID [place] Administration Sodium Chloride 10 ml 02/05/21 10:00 02/12/21 09:31 Sodium Chloride 0.9% 10 Ml Flush Syringe IV 10 ml BID [place] Administration Sodium Chloride 10 ml 02/04/21 23:44 02/06/21 06:23 Sodium Chloride 0.9% 10 Ml Flush Syringe IV 10 ml PRN PRN Administration LINE FLUSH
[2021-02-12] MEDS: MELATONIN 5 MG TAB PO PRN (22:03)
[2021-02-12] MEDS: guaiFENesin DM 200/20 MG ORAL LIQD 10 ML PO PRN (22:04)
[2021-02-12] MEDS ORDERED: MORPHINE 2 MG/1 ML INJ IV ONE (23:11)
[2021-02-13] MEDS: metroNIDAZOLE 500 MG TAB PO SCH ×3 (00:06→15:29)
[2021-02-13] MEDS: HEPARIN 5,000 UNIT/1 ML VIAL SUB-Q SCH ×3 (05:08→22:31)
[2021-02-13 05:28] LABS: Bacteria,Urine 1+ /HPF (Negative); Bilirubin,Urine NEG (Negative); Blood,Urine NEG (Negative); Color,Urine Straw (Yellow); Protein,Urine <15 mg/dL mg/dL (Negative); Urobilinogen,Urine < 2.0 mg/dL (<2.0); WBC,Urine < 1.0 /HPF (0.0-6.0)
--- NOTE | 2021-02-13 08:01 | Consultation ---
History of Present Illness Consult date: 02/13/21 Reason for Consult: Confusion/dementia and Hx of alcoholism ,dizziness History of present illness: Lightheadedness Near syncope History of present illness: 51-year-old white female with known history of gastric bypass about a year ago presenting to the emergency room today complaining of dizziness, shortness of breath and near syncope. Symptoms has been ongoing for about a week. Patient states she feels dizzy while standing. She has had nausea and vomiting over the past few days and intermittent bouts of diarrhea. She also indicates that she has had low-grade fever at home. She denies any headache and no diaphoresis. Patient denies any cough or chest pain. No hematuria or dysuria. Patient has been in contact with her family member who has had flu-like symptoms lately but denies any recent travel. Patient admits that she has not been vaccinated against COVID-19. Upon arrival in the emergency room patient was found to be slightly tachycardic and also orthostatic. Work-up in the emergency room today reveals hypokalemia of 2.0, hypomagnesemia of 1.5 and mild metabolic acidosis. Chest x-ray and CT scan of the head were unremarkable. CT of the abdomen and pelvis shows possible mild sigmoid colitis. Neurology consulted for evaluation of memory difficulty According to pt. 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 she is on Zyprexa and B1 tablet B12,Folate,and TSH WNL Past History Past Medical History: No medical history Past Surgical History: No surgical history Social history: no significant social history Medications and Allergies Allergies Allergy/AdvReac Type Severity Reaction Status Date / Time No Known Allergies Allergy Unverified 02/04/21 18:30 Home Medications Medication Instructions Recorded Confirmed Last Taken Type No Known Home Medications [No 02/05/21 02/05/21 Unknown History Reported Home Medications] Active Meds: Active Medications Acetaminophen (Acetaminophen 325 Mg Tab) 650 mg PO Q4H PRN PRN Reason: Pain MILD(1-3)/Fever >100.5/SAENZ Heparin Sodium (Porcine) (Heparin 5,000 Unit/1 Ml Vial) 5,000 unit SUB-Q Q8HR [place] Sodium Chloride (Nacl 0.9% 1000 Ml) 1,000 mls @ 125 mls/hr IV DIRECT [place] Magnesium Hydroxide (Magnesium Hydroxide (Mom) Oral Liqd Udc) 30 ml PO Q4H PRN PRN Reason: Constipation Morphine Sulfate (Morphine 2 Mg/1 Ml Inj) 2 mg IV Q4H PRN PRN Reason: Pain, Moderate (4-6) Morphine Sulfate (Morphine 4 Mg/1 Ml Inj) 4 mg IV Q4H PRN PRN Reason: Pain , Severe (7-10) Ondansetron HCl (Ondansetron 4 Mg/2 Ml Inj) 4 mg IV Q8H PRN PRN Reason: Nausea And Vomiting Sodium Chloride (Sodium Chloride 0.9% 10 Ml Flush Syringe) 10 ml IV BID [place] Sodium Chloride (Sodium Chloride 0.9% 10 Ml Flush Syringe) 10 ml IV PRN PRN PRN Reason: LINE FLUSH Review of Systems Constitutional: no fever, no chills Ears, nose, mouth and throat: no nasal congestion, no sore throat Cardiovascular: no chest pain, no palpitations Respiratory: no cough, no shortness of breath Gastrointestinal: nausea, vomiting, diarrhea, hematemesis, no abdominal pain, no hematochezia Genitourinary Female: no pelvic pain, no flank pain, no dysuria, no hematuria Musculoskeletal: no neck pain, no low back pain Integumentary: no rash, no pruritis Neurological: syncope, no headaches, no confusion Psychiatric: no anxiety, no depression Endocrine: no polyphagia, no polydipsia, no polyuria, no nocturia Past History Past Medical History: No medical history Past Surgical History: No surgical history Social history: no significant social history Medications and Allergies Allergies Allergy/AdvReac Type Severity Reaction Status Date / Time No Known Allergies Allergy Unverified 02/04/21 18:30 Home Medications Medication Instructions Recorded Confirmed Last Taken Type No Known Home Medications [No 02/05/21 02/05/21 Unknown History Reported Home Medications] Active Meds: Active Medications Acetaminophen (Acetaminophen 325 Mg Tab) 650 mg PO Q4H PRN PRN Reason: Pain MILD(1-3)/Fever >100.5/SAENZ Last Admin: 02/12/21 22:02 Dose: 650 mg Documented by: Folic Acid (Folic Acid 1 Mg Tab) 2 mg PO QDAY [facility] Guaifenesin (Guaifenesin Dm 200/20 Mg Oral Liqd 10 Ml) 10 ml PO Q4H PRN PRN Reason: Cough Last Admin: 02/12/21 22:04 Dose: 10 ml Documented by: Heparin Sodium (Porcine) (Heparin 5,000 Unit/1 Ml Vial) 5,000 unit SUB-Q Q8HR [facility] Last Admin: 02/13/21 05:08 Dose: 5,000 unit Documented by: Levofloxacin (Levofloxacin 500 Mg Tab) 500 mg PO Q24HR [facility]; Protocol Last Admin: 02/12/21 09:31 Dose: 500 mg Documented by: Melatonin (Melatonin 5 Mg Tab) 5 mg PO QHS PRN PRN Reason: Sleep Last Admin: 02/12/21 22:03 Dose: 5 mg Documented by: Metronidazole (Metronidazole 500 Mg Tab) 500 mg PO Q8H [facility]; Protocol Last Admin: 02/13/21 00:06 Dose: 500 mg Documented by: Multivitamins (Multivitamins ,Therapeutic Tab) 1 each PO QDAY [facility] Olanzapine (Olanzapine 5 Mg Tab) 5 mg PO QDAY [facility] Last Admin: 02/12/21 09:31 Dose: 5 mg Documented by: Ondansetron HCl (Ondansetron 4 Mg/2 Ml Inj) 4 mg IV Q8H PRN PRN Reason: Nausea And Vomiting Potassium Chloride (Potassium Chloride Er 20 Meq Tab) 40 meq PO BID [facility] Last Admin: 02/12/21 22:03 Dose: 40 meq Documented by: Sodium Bicarbonate (Sodium Bicarbonate 650 Mg Tab) 1,300 mg PO BID [facility] Last Admin: 02/12/21 22:03 Dose: 1,300 mg Documented by: Sodium Chloride (Sodium Chloride 0.9% 10 Ml Flush Syringe) 10 ml IV BID [facility] Last Admin: 02/12/21 22:03 Dose: 10 ml Documented by: Sodium Chloride (Sodium Chloride 0.9% 10 Ml Flush Syringe) 10 ml IV PRN PRN PRN Reason: LINE FLUSH Last Admin: 02/06/21 06:23 Dose: 10 ml Documented by: Thiamine HCl (Thiamine 100 Mg Tab) 100 mg PO QDAY [facility] Physical Examination - Vital Signs Vital Signs: Vital Signs Temp Pulse Resp BP Pulse Ox 99.6 F 103 H 18 103/66 98 02/04/21 18:28 10/15/21 18:28 02/04/21 18:28 02/04/21 18:28 02/04/21 18:28 - Constitutional General appearance: comfortable - EENT EENT: Present: PERRL, mucous membranes moist - Respiratory Respiratory: Present: chest non-tender, lungs clear - Cardiovascular Cardiovascular: Present: regular rate, normal S1, normal S2 Extremities: Present: no peripheral edema bilatateraly, no clubbing, cyanosis - Gastrointestinal Gastrointestinal: Present: normoactive bowel sounds - Integumentary Integumentary: Present: normal - Neurologic Cranial nerve examination: PERRL, EOMI, intact Speech examination: intact Sensorimotor examination: intact Detailed motor examination: grossly full strength in - Psychiatric Psychiatric: Present: other (she is alert no aphasia , oriented to place , not day or year knows we are in January,can not remeber president or previous pr eseident name,remeber her birthdate but not her home address, cognitive is impaired ) Results - Laboratory Findings CBC and BMP: 02/12/21 04:27 02/12/21 04:27 Abnormal Lab Findings: Abnormal Labs 02/04/21 02/04/21 02/04/21 20:42 20:42 22:29 WBC RBC 3.40 L Hgb Hct MCV 98 H MCH 34 H MCHC 35 H RDW Lymph % (Auto) [place] % (Auto) 12.2 H Seg Neutrophils % Seg Neuts % (Manual) Lymphocytes % (Manual) Monocytes % (Manual) 13.0 H Seg Neutrophils # Seg Neutrophils # Man Lymphocytes # (Manual) Potassium 2.0 L* Chloride Carbon Dioxide 17 L BUN Creatinine Glucose 128 H Calcium 8.1 L Magnesium 1.40 L 1.50 L AST 81 H Total Protein Albumin 2.6 L Vitamin B12 Folate Ur Specific [place] Salicylates Acetaminophen 02/04/21 02/04/21 02/05/21 22:29 22:29 05:21 WBC RBC 3.12 L Hgb Hct MCV 99 H MCH 33 H MCHC RDW Lymph % (Auto) [place] % (Auto) 11.8 H Seg Neutrophils % Seg Neuts % (Manual) Lymphocytes % (Manual) Monocytes % (Manual) Seg Neutrophils # Seg Neutrophils # Man Lymphocytes # (Manual) Potassium Chloride Carbon Dioxide BUN Creatinine Glucose Calcium Magnesium AST Total Protein Albumin Vitamin B12 Folate Ur Specific [place] Salicylates < 0.3 L Acetaminophen 5.0 L 02/05/21 02/05/21 02/06/21 05:21 18:02 13:31 WBC RBC Hgb Hct MCV MCH MCHC RDW Lymph % (Auto) [place] % (Auto) Seg Neutrophils % Seg Neuts % (Manual) Lymphocytes % (Manual) Monocytes % (Manual) Seg Neutrophils # Seg Neutrophils # Man Lymphocytes # (Manual) Potassium 2.2 L* 2.7 L* D 3.2 L Chloride 107.4 H 109.8 H Carbon Dioxide 18 L 19 L 16 L BUN 5 L 3 L Creatinine 0.4 L 0.5 L 0.5 L Glucose 101 H 122 H 187 H Calcium 7.5 L 7.9 L 7.9 L Magnesium AST 70 H Total Protein Albumin 2.6 L Vitamin B12 Folate Ur Specific [place] Salicylates Acetaminophen 02/07/21 02/08/21 02/08/21 07:00 04:36 04:36 WBC 3.1 L RBC 2.71 L Hgb 9.2 L Hct 27.1 L MCV 100 H MCH 34 H MCHC RDW 15.8 H Lymph % (Auto) [place] % (Auto) Seg Neutrophils % Seg Neuts % (Manual) 36.0 L Lymphocytes % (Manual) 52.0 H Monocytes % (Manual) 8.0 H Seg Neutrophils # Seg Neutrophils # Man 1.1 L Lymphocytes # (Manual) Potassium 3.1 L 3.0 L Chloride 113.0 H 110.9 H Carbon Dioxide 16 L 17 L BUN 3 L 2 L Creatinine 0.5 L 0.4 L Glucose 111 H 105 H Calcium 7.8 L 7.9 L Magnesium AST Total Protein Albumin Vitamin B12 Folate Ur Specific [place] Salicylates Acetaminophen 02/08/21 02/09/21 02/09/21 16:57 10:01 10:01 WBC 3.7 L RBC 2.82 L Hgb 8.9 L Hct 27.8 L MCV 99 H MCH MCHC RDW 15.7 H Lymph % (Auto) 41.2 H [place] % (Auto) 13.0 H Seg Neutrophils % Seg Neuts % (Manual) Lymphocytes % (Manual) Monocytes % (Manual) Seg Neutrophils # 1.6 L Seg Neutrophils # Man Lymphocytes # (Manual) Potassium 3.4 L Chloride 116.6 H Carbon Dioxide 15 L BUN < 1 L Creatinine 0.5 L Glucose Calcium 7.9 L Magnesium 1.60 L 1.50 L AST 48 H Total Protein 5.2 L Albumin 2.1 L Vitamin B12 Folate Ur Specific [place] Salicylates Acetaminophen 02/10/21 02/10/21 02/11/21 05:12 05:12 04:16 WBC 3.5 L 4.0 L RBC 2.83 L 3.01 L Hgb 9.2 L 9.7 L Hct 27.9 L 29.5 L MCV 99 H 98 H MCH MCHC RDW 16.0 H 15.9 H Lymph % (Auto) 47.7 H [place] % (Auto) 10.9 H Seg Neutrophils % 37.7 L Seg Neuts % (Manual) Lymphocytes % (Manual) Monocytes % (Manual) Seg Neutrophils # 1.5 L Seg Neutrophils # Man Lymphocytes # (Manual) 0.9 L Potassium Chloride 115.0 H Carbon Dioxide 17 L BUN < 1 L Creatinine 0.4 L Glucose Calcium 8.2 L Magnesium AST 42 H Total Protein 5.1 L Albumin 2.1 L Vitamin B12 Folate Ur Specific [place] Salicylates Acetaminophen 02/11/21 02/11/21 02/11/21 04:16 19:13 19:13 WBC RBC Hgb Hct MCV MCH MCHC RDW Lymph % (Auto) [place] % (Auto) Seg Neutrophils % Seg Neuts % (Manual) Lymphocytes % (Manual) Monocytes % (Manual) Seg Neutrophils # Seg Neutrophils # Man Lymphocytes # (Manual) Potassium Chloride 111.9 H Carbon Dioxide 17 L BUN < 1 L Creatinine 0.4 L Glucose Calcium 8.2 L Magnesium AST 42 H Total Protein 5.1 L Albumin 2.1 L Vitamin B12 > 2000 H Folate 4.70 L Ur Specific [place] Salicylates Acetaminophen 02/12/21 02/12/21 02/13/21 04:27 04:27 Unknown WBC 4.2 L RBC 3.00 L Hgb 9.7 L Hct 29.8 L MCV 100 H MCH MCHC RDW 15.9 H Lymph % (Auto) 41.2 H [place] % (Auto) 10.7 H Seg Neutrophils % Seg Neuts % (Manual) Lymphocytes % (Manual) Monocytes % (Manual) Seg Neutrophils # Seg Neutrophils # Man Lymphocytes # (Manual) Potassium Chloride 110.6 H Carbon Dioxide 19 L BUN < 1 L Creatinine 0.5 L Glucose 103 H Calcium Magnesium AST 54 H Total Protein 5.3 L Albumin 2.0 L Vitamin B12 Folate Ur Specific [place] 1.001 L Salicylates Acetaminophen Assessment and Plan Assessment and Plan Assessment and plan: 51-year-old female, history of gastric bypass surgery 1 year ago, presents to ED for evaluation. Initial triage note states that patient is here for difficulty breathing. I spoke with patient and she states that she "always" has shortness of breath and that she has not had any increase in her shortness of breath. Patient told the midlevel during her medical screening that she is here for dizziness and near syncope over the past week. 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 #Folic acid deficiency, level 4.7. Folic acid supplementation started. B12 and TSH normal PLAN 1- Thiamin 300 mg IV once 2- Multi vitamin daily tablet 3- MRI brain 4- Avoid alcohol 5- Neurology follow up 6- Increase fluid intake 7- check ammonia level. . will sign off
[2021-02-13] MEDS: levoFLOXacin 500 MG TAB PO SCH (10:25)
[2021-02-13] MEDS: SODIUM BICARBONATE 650 MG TAB PO SCH ×2 (10:25→22:31)
[2021-02-13] MEDS: FOLIC ACID 1 MG TAB PO SCH (10:25)
[2021-02-13] MEDS: THIAMINE 100 MG TAB PO SCH (10:25)
[2021-02-13] MEDS: MULTIVITAMINS ,THERAPEUTIC TAB PO SCH (10:25)
[2021-02-13] MEDS: guaiFENesin DM 200/20 MG ORAL LIQD 10 ML PO PRN (10:29)
[2021-02-13] MEDS ORDERED: MULTIVITAMINS ,THERAPEUTIC TAB PO SCH (11:00)
[2021-02-13 12:21] LABS: Calcium 8.4 mg/dL (8.4-10.2); Hemolysis Index 99
[2021-02-13 12:28] LABS: BUN/Creatinine Ratio 3; Blood Urea Nitrogen < 1 mg/dL (7-17)
[2021-02-13] MEDS: POTASSIUM CHLORIDE ER 20 MEQ TAB PO SCH ×3 (13:36→22:31)
--- NOTE | 2021-02-13 20:45 | Progress Note ---
Assessment and Plan Assessment and plan: Acute colitis/diarrhea. 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 Folic acid deficiency, level 4.7. Folic acid supplementation started. B12 and TSH normal 02/05/2021. CT scan of the abdomen pelvis revealed mild sigmoid colitis. We will start IV antibiotics of Levaquin and Flagyl. Follow-up stool culture and fecal leukocytes. Patient will have repletion of potassium and follow-up BMP later today and in a.m. Continue IV fluid hydration for orthostasis. Magnesium repleted. Anticipate discharge in a.m. 02/06/2021. Patient denies any diarrhea. We'll follow-up stool studies continue IV antibiotics of Levaquin and Flagyl. Patient still has significant hypokalemia. Replete potassium and follow-up BMP. Replete magnesium. Patient remains orthostatic. Continue IV fluid hydration and recheck orthostatic vital signs. 02/07/2021. Potassium improved to 3.2 yesterday. Recheck BMP this morning. Continue to replete potassium and magnesium as needed. Still awaiting stool studies for fecal leukocyte and culture. Continue IV antibiotics of Flagyl and Levaquin. Patient still with significant orthostasis this morning. Continue IV fluid hydration. 02/08/2021: Patient remains alert, verbal but confused/disoriented. The etiology appears to be dementia but acutely encephalopathy cannot rule out. Patient remains afebrile. Does not appear to be septic. She continues to have diarrhea with the severe persistent hypokalemia which is replenished on a daily basis. Discussed with the nursing staff. 02/09/2021: Patient remains pleasantly confused. No behavioral problems like agitation. Will likely from a dementia but acute encephalopathy, rule out. Psychiatry is following. Patient is on Zyprexa. Potassium remains low but seems to be improving. We will continue aggressive potassium replacement along with medicine replacement. Will discontinue IV fluids. Will discontinue antibiotics. Nursing staff reports that she has no diarrhea today. 02/10/2021: She is alert but remains confused/disoriented. Vital signs stable. No diarrhea reported. Patient states she has some pain in the LLQ. Tolerating diet well. Remains on the KCl 80 mg daily for persistent hypokalemia. Seen by GI today, no further work-up needed since symptoms resolving. Anticipating discharge soon. Discussed with the nursing staff and caser in. 02/11/2021: She is alert but remains confused/disoriented. Vital signs stable. No diarrhea reported. Tolerating diet well. Remains on the KCl 80 mg daily for persistent hypokalemia. Oral total bicarb started and nephrology consulted for nongap metabolic acidosis. special projects manager spoke to several family members today, patient has been alcoholic drinking several alcoholic beverages daily as well as uses prescription narcotics. Patient has been forgetful and confused since weeks. She refused alcohol rehab in the past. Anticipating discharge soon 02/12/2021: Patient remains fully alert with fluent speech and disorientation unchanged. Potassium level is inching up daily KCl 80 mg supplementation. Bicarb slowly coming up oral bicarb supplementation. Nephrology consulted for hypochloremic metabolic acidosis. Neurology consulted. Anticipating discharge soon 02/13/2021: Patient remains pleasantly confused/disoriented and forgetful. Evaluate by neurology, MRI ordered but not yet unrevealing. Potassium continues to rise slowly in the setting KCl 80 mEq daily. Still improving with oral bicarb supplementation. Evaluated by nephrology today and he recommends outpatient follow-up. Anticipating discharge tomorrow afternoon MRI. History Interval history: She is alert but remains very confused/disoriented. Vital signs stable. No diarrhea reported. Tolerating diet well. Remains on the KCl 80 mg daily for persistent hypokalemia. Oral bicarbonate started and nephrology consulted for management of hypochloremic metabolic acidosis. Evaluated by neurology and MRI ordered but not done yet due to weekend. Hospitalist Physical - Constitutional Vitals: Temp Pulse Resp BP Pulse Ox 98.5 F 87 18 144/85 99 02/13/21 19:45 02/13/21 19:45 02/13/21 19:45 02/13/21 19:45 02/13/21 19:45 General appearance: Present: no acute distress, well-nourished, other (Pleasantly confused/disoriented) - EENT Eyes: Present: PERRL, EOM intact ENT: hearing intact, clear oral mucosa - Neck Neck: Present: supple - Respiratory Respiratory effort: normal Respiratory: bilateral: CTA - Cardiovascular Rhythm: regular - Extremities Extremities: No edema - Abdominal General gastrointestinal: soft, tender (Mild LLQ tenderness with deep palpation), non-distended, normal bowel sounds - Integumentary Integumentary: Absent: rash - Psychiatric Psychiatric: other (calm) - Neurologic Neurologic: other (Remains fully alert but disoriented with confabulation and poor pulmonary. No motor deficits.) HEART Score - HEART Score Troponin: Troponin T < 0.010 ng/mL (0.00-0.029) 02/04/21 20:42 Results - Labs CBC & Chem 7: 02/12/21 04:27 02/13/21 11:45 Labs: Laboratory Last Values WBC 4.2 K/mm3 (4.5-11.0) L 02/12/21 04:27 RBC 3.00 M/mm3 (3.65-5.03) L 02/12/21 04:27 Hgb 9.7 gm/dl (10.1-14.3) L 02/12/21 04:27 Hct 29.8 % (30.3-42.9) L 02/12/21 04:27 MCV 100 fl (79-97) H 02/12/21 04:27 MCH 32 pg (28-32) 02/12/21 04:27 MCHC 33 % (30-34) 02/12/21 04:27 RDW 15.9 % (13.2-15.2) H 02/12/21 04:27 Plt Count 288 K/mm3 (140-440) 02/12/21 04:27 Lymph % (Auto) 41.2 % (13.4-35.0) H 02/12/21 04:27 [place] % (Auto) 10.7 % (0.0-7.3) H 02/12/21 04:27 Eos % (Auto) 2.1 % (0.0-4.3) 02/12/21 04:27 Baso % (Auto) 0.9 % (0.0-1.8) 02/12/21 04:27 Lymph # (Auto) 1.7 K/mm3 (1.2-5.4) 02/12/21 04:27 [place] # (Auto) 0.4 K/mm3 (0.0-0.8) 02/12/21 04:27 Eos # (Auto) 0.1 K/mm3 (0.0-0.4) 02/12/21 04:27 Baso # (Auto) 0.0 K/mm3 (0.0-0.1) 02/12/21 04:27 Add Manual Diff Complete 02/10/21 05:12 Total Counted 100 02/10/21 05:12 Seg Neutrophils % 45.1 % (40.0-70.0) 02/12/21 04:27 Seg Neuts % (Manual) 66.0 % (40.0-70.0) 02/10/21 05:12 Band Neutrophils % 5.0 % 02/10/21 05:12 Lymphocytes % (Manual) 27.0 % (13.4-35.0) 02/10/21 05:12 Monocytes % (Manual) 1.0 % (0.0-7.3) 02/10/21 05:12 Eosinophils % (Manual) 3.0 % (0.0-4.3) 02/08/21 04:36 Basophils % (Manual) 1.0 % (0.0-1.8) 02/10/21 05:12 Nucleated RBC % Not Reportable 02/10/21 05:12 Seg Neutrophils # 1.9 K/mm3 (1.8-7.7) 02/12/21 04:27 Seg Neutrophils # Man 2.3 K/mm3 (1.8-7.7) 02/10/21 05:12 Band Neutrophils # 0.2 K/mm3 02/10/21 05:12 Lymphocytes # (Manual) 0.9 K/mm3 (1.2-5.4) L 02/10/21 05:12 Abs React Lymphs (Man) 0.0 K/mm3 02/10/21 05:12 Monocytes # (Manual) 0.0 K/mm3 (0.0-0.8) 02/10/21 05:12 Eosinophils # (Manual) 0.0 K/mm3 (0.0-0.4) 02/10/21 05:12 Basophils # (Manual) 0.0 K/mm3 (0.0-0.1) 02/10/21 05:12 Metamyelocytes # 0.0 K/mm3 02/10/21 05:12 Myelocytes # 0.0 K/mm3 02/10/21 05:12 Promyelocytes # 0.0 K/mm3 02/10/21 05:12 Blast Cells # 0.0 K/mm3 02/10/21 05:12 WBC Morphology Not Reportable 02/10/21 05:12 Hypersegmented Neuts Not Reportable 02/10/21 05:12 Hyposegmented Neuts Not Reportable 02/10/21 05:12 Hypogranular Neuts Not Reportable 02/10/21 05:12 Smudge Cells Not Reportable 02/10/21 05:12 Toxic Granulation Not Reportable 02/10/21 05:12 Toxic Vacuolation Not Reportable 02/10/21 05:12 Dohle Bodies Not Reportable 02/10/21 05:12 Pelger-Huet Anomaly Not Reportable 02/10/21 05:12 Yadira Rods Not Reportable 02/10/21 05:12 Platelet Estimate Consistent w auto 02/10/21 05:12 Clumped Platelets Not Reportable 02/10/21 05:12 Plt Clumps, EDTA Not Reportable 02/10/21 05:12 Large Platelets Not Reportable 02/10/21 05:12 Giant Platelets Not Reportable 02/10/21 05:12 Platelet Satelliting Not Reportable 02/10/21 05:12 Plt Morphology Comment Not Reportable 02/10/21 05:12 RBC Morphology Not Reportable 02/10/21 05:12 Dimorphic RBCs Not Reportable 02/10/21 05:12 Polychromasia Not Reportable 02/10/21 05:12 Hypochromasia Not Reportable 02/10/21 05:12 Poikilocytosis Not Reportable 02/10/21 05:12 Anisocytosis Not Reportable 02/10/21 05:12 Microcytosis Not Reportable 02/10/21 05:12 Macrocytosis Not Reportable 02/10/21 05:12 Spherocytes Not Reportable 02/10/21 05:12 Pappenheimer Bodies Not Reportable 02/10/21 05:12 Sickle Cells Not Reportable 02/10/21 05:12 Target Cells Not Reportable 02/10/21 05:12 Tear Drop Cells Not Reportable 02/10/21 05:12 Ovalocytes Not Reportable 02/10/21 05:12 Helmet Cells Not Reportable 02/10/21 05:12 Edwards-Green[place] Bodies Not Reportable 02/10/21 05:12 Glover Rings Not Reportable 02/10/21 05:12 Kym Cells Not Reportable 02/10/21 05:12 Bite Cells Not Reportable 02/10/21 05:12 Crenated Cell Not Reportable 02/10/21 05:12 Elliptocytes Not Reportable 02/10/21 05:12 Acanthocytes (Spur) Not Reportable 02/10/21 05:12 Rouleaux Not Reportable 02/10/21 05:12 Hemoglobin C Crystals Not Reportable 02/10/21 05:12 Schistocytes Not Reportable 02/10/21 05:12 Malaria parasites Not Reportable 02/10/21 05:12 [place] Bodies Not Reportable 02/10/21 05:12 Hem Pathologist Commnt No 02/10/21 05:12 PT 13.5 Sec. (12.2-14.9) 02/05/21 05:21 INR 0.93 (0.87-1.13) 02/05/21 05:21 Sodium 135 mmol/L (137-145) L 02/13/21 11:45 Potassium 4.4 mmol/L (3.6-5.0) 02/13/21 11:45 Chloride 104.2 mmol/L (98-107) 02/13/21 11:45 Carbon Dioxide 21 mmol/L (22-30) L 02/13/21 11:45 Anion Gap 14 mmol/L 02/13/21 11:45 BUN < 1 mg/dL (7-17) L 02/13/21 11:45 Creatinine 0.4 mg/dL (0.6-1.2) L 02/13/21 11:45 Estimated GFR > 60 ml/min 02/13/21 11:45 BUN/Creatinine Ratio 3 % 02/13/21 11:45 Glucose 116 mg/dL (65-100) H 02/13/21 11:45 Calcium 8.4 mg/dL (8.4-10.2) 02/13/21 11:45 Phosphorus 3.00 mg/dL (2.5-4.5) 02/04/21 20:42 Magnesium 1.70 mg/dL (1.7-2.3) 02/13/21 11:45 Total Bilirubin 0.60 mg/dL (0.1-1.2) 02/12/21 04:27 AST 54 units/L (5-40) H 02/12/21 04:27 ALT 15 units/L (7-56) 02/12/21 04:27 Alkaline Phosphatase 88 units/L (35-129) 02/12/21 04:27 Troponin T < 0.010 ng/mL (0.00-0.029) 02/04/21 20:42 Total Protein 5.3 g/dL (6.3-8.2) L 02/12/21 04:27 Albumin 2.0 g/dL (3.9-5) L 02/12/21 04:27 Albumin/Globulin Ratio 0.6 % 02/12/21 04:27 Vitamin B12 > 2000 pg/mL (211-911) H 02/11/21 19:13 Folate 4.70 ng/mL (7.3-26.0) L 02/11/21 19:13 TSH 1.570 mlU/mL (0.270-4.200) 02/11/21 19:13 Urine Color Straw (Yellow) 02/13/21 Unknown Urine Turbidity Clear (Clear) 02/13/21 Unknown Urine pH 6.0 (5.0-7.0) 02/13/21 Unknown Ur Specific [place] 1.001 (1.003-1.030) L 02/13/21 Unknown Urine Protein <15 mg/dl mg/dL (Negative) 02/13/21 Unknown Urine Glucose (UA) Neg mg/dL (Negative) 02/13/21 Unknown Urine Ketones Neg mg/dL (Negative) 02/13/21 Unknown Urine Blood Neg (Negative) 02/13/21 Unknown Urine Nitrite Neg (Negative) 02/13/21 Unknown Urine Bilirubin Neg (Negative) 02/13/21 Unknown Urine Urobilinogen < 2.0 mg/dL (<2.0) 02/13/21 Unknown Ur Leukocyte Esterase Neg (Negative) 02/13/21 Unknown Urine WBC (Auto) < 1.0 /HPF (0.0-6.0) 02/13/21 Unknown Urine RBC (Auto) 1.0 /HPF (0.0-6.0) 02/13/21 Unknown Urine Bacteria (Auto) 1+ /HPF (Negative) 02/13/21 Unknown Salicylates < 0.3 mg/dL (2.8-20.0) L 02/04/21 22:29 Acetaminophen 5.0 ug/mL (10.0-30.0) L 02/04/21 22:29 Plasma/Serum Alcohol < 0.01 % (0-0.07) 02/04/21 22:29 Syphilis IgG Antibody Nonreactive (NonReactive) 02/11/21 19:13 Coronavirus (PCR) Negative (Negative) 02/07/21 Unknown [place]/IV: Voiding Method Toilet Active Medications - Current Medications Current Medications: Generic Name Dose Route Start Last Admin Trade Name Freq PRN Reason Stop Dose Admin Acetaminophen 650 mg 02/04/21 23:44 02/12/21 22:02 Acetaminophen 325 Mg Tab PO 650 mg Q4H PRN Administration Pain MILD(1-3)/Fever >100.5/SAENZ Folic Acid 2 mg 02/13/21 10:00 02/13/21 10:25 Folic Acid 1 Mg Tab PO 2 mg QDAY [place] Administration Guaifenesin 10 ml 02/05/21 20:49 02/13/21 10:29 Guaifenesin Dm 200/20 Mg Oral Liqd 10 Ml PO 10 ml Q4H PRN Administration Cough Heparin Sodium (Porcine) 5,000 unit 02/05/21 06:00 02/13/21 13:53 Heparin 5,000 Unit/1 Ml Vial SUB-Q 5,000 unit Q8HR [place] Administration Levofloxacin 500 mg 02/12/21 10:00 02/13/21 10:25 Levofloxacin 500 Mg Tab PO 500 mg Q24HR [place] Administration Protocol Melatonin 5 mg 02/07/21 00:58 02/12/21 22:03 Melatonin 5 Mg Tab PO 5 mg QHS PRN Administration Sleep Metronidazole 500 mg 02/12/21 08:00 02/13/21 15:29 Metronidazole 500 Mg Tab PO 500 mg Q8H [place] Administration Protocol Multivitamins 1 each 02/13/21 10:00 02/13/21 10:25 Multivitamins ,Therapeutic Tab PO 1 each QDAY [place] Administration Olanzapine 2.5 mg 02/13/21 11:00 02/13/21 12:02 Olanzapine 2.5 Mg Tab PO Not Given QDAY [place] Ondansetron HCl 4 mg 02/04/21 23:44 Ondansetron 4 Mg/2 Ml Inj IV Q8H PRN Nausea And Vomiting Potassium Chloride 40 meq 02/08/21 10:00 02/13/21 15:27 Potassium Chloride Er 20 Meq Tab PO 40 meq BID [place] Administration Sodium Bicarbonate 1,300 mg 02/11/21 22:00 02/13/21 10:25 Sodium Bicarbonate 650 Mg Tab PO 1,300 mg BID [place] Administration Sodium Chloride 10 ml 02/05/21 10:00 02/13/21 10:25 Sodium Chloride 0.9% 10 Ml Flush Syringe IV 10 ml BID [place] Administration Sodium Chloride 10 ml 02/04/21 23:44 02/06/21 06:23 Sodium Chloride 0.9% 10 Ml Flush Syringe IV 10 ml PRN PRN Administration LINE FLUSH Thiamine HCl 100 mg 02/13/21 10:00 02/13/21 10:25 Thiamine 100 Mg Tab PO 100 mg QDAY [place] Administration
[2021-02-14] MEDS: MELATONIN 5 MG TAB PO PRN (00:07)
[2021-02-14] MEDS: guaiFENesin DM 200/20 MG ORAL LIQD 10 ML PO PRN (00:07)
[2021-02-14] MEDS: metroNIDAZOLE 500 MG TAB PO SCH ×3 (00:07→17:17)
[2021-02-14] MEDS: HEPARIN 5,000 UNIT/1 ML VIAL SUB-Q SCH ×3 (05:40→22:02)
[2021-02-14] MEDS: MULTIVITAMINS ,THERAPEUTIC TAB PO SCH (10:01)
[2021-02-14] MEDS: THIAMINE 100 MG TAB PO SCH (10:01)
[2021-02-14] MEDS: levoFLOXacin 500 MG TAB PO SCH (10:01)
[2021-02-14] MEDS: FOLIC ACID 1 MG TAB PO SCH (10:01)
[2021-02-14] MEDS: SODIUM BICARBONATE 650 MG TAB PO SCH ×2 (10:01→22:03)
[2021-02-14 10:25] LABS: Calcium 8.7 mg/dL (8.4-10.2); Hemolysis Index 2
[2021-02-14 10:33] LABS: BUN/Creatinine Ratio 2; Blood Urea Nitrogen < 1 mg/dL (7-17)
--- NOTE | 2021-02-14 14:38 | Magnetic Resonance Report ---
MR brain wo/w con INDICATION / CLINICAL INFORMATION: Seizure disorder, DEMENTIA. TECHNIQUE: Multiplanar, multisequence MR images of the brain were obtained. COMPARISON: None available. FINDINGS: INTRACRANIAL: No restricted diffusion. No hemorrhage. Ventricular caliber is normal. No extra-axial c ollection. No mass. No herniation. Major intracranial vascular flow voids are preserved. Bilateral h ippocampi are symmetric without abnormal T2 signal hyperintensity. Small quantity of T2 signal white matter hyperintensities, likely sequela of chronic microvascular disease. No disproportionate hippoca mpal atrophy. ORBITS: No significant abnormality of visualized orbits. SINUSES / MASTOIDS: Moderate mucosal thickening in the ethmoid air cells. Mild mucosal thickening in the remainder the paranasal sinuses. Small mastoid effusions ADDITIONAL FINDINGS: None. IMPRESSION: 1. No significant intracranial abnormality. Signer Name: Gokul Oviedo MD Signed: 02/14/2021 2:34 PM Workstation Name: [id number]
--- NOTE | 2021-02-14 17:01 | Discharge Summary ---
Providers - Providers Date of Admission: 02/07/21 09:30 Attending physician: ENID LOPEZ MD 02/07/21 13:07 Consult to Mental Health [CONS] Urgent Reason For Exam: Suicidal ideations 02/10/21 08:48 Consult to Physician [CONS] Routine Comment: Consulting Provider: BEAN FORRESTER Physician Instructions: Reason For Exam: Diarrhea with hypokalemia 02/11/21 16:28 Consult to Physician [CONS] Routine Comment: Consulting Provider: GIULIA LOVETT Physician Instructions: Reason For Exam: Persistent hypokalemia and metabolic acidosis 02/13/21 07:45 Consult to Physician [CONS] Routine Comment: Consulting Provider: NIKOLE OVIEDO Physician Instructions: Reason For Exam: Confusion Primary care physician: DAY PENALOZA MD Hospitalization Condition: Stable Hospital course: Acute colitis/diarrhea. 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 Folic acid deficiency, level 4.7. Folic acid supplementation started. B12 and TSH normal Patient remains alert but pleasantly confused/disoriented with memory impairment. Her cognitive impairment is very likely chronic as she also takes Seroquel at home. MRI brain is unremarkable. She does have a [place] catheter deficiency and started on folic acid 2 mg daily. Unclear if [place] cath deficiency is a factor in her cognitive impairment. She needs to have a follow- up with her neurologist. She remains afebrile with stable vital signs. Diarrhea resolved. She has minimal LLQ tenderness with deep palpation. Tolerating diet well. Potassium level is to 4.5 but with a daily KCl 80 mEq oral supplementation. CO2 improved to 21 with taking oral bicarb twice a day. Patient is stable for discharge for follow-up with nephrology in 10 days, GI in 2 weeks and PCP with repeat. She does have electrolytes rechecked in 10 days. She is given a prescription for KCl 10 mg daily x7 days, sodium bicarbonate 650 mg daily x7 days, Cipro 5 mg twice daily x5 days and Flagyl 3 times daily x5 days. Disposition: 01 HOME / SELF CARE / HOMELESS Final Discharge Diagnosis (Prints w/discharge instructions): Acute colitis/diarrhea. Orthostatic hypotension, resolved. Severe persistent hypokalemia, likely from GI losses. Hypochloremic nonanion gap metabolic acidosis with a normal creatinine. Hypomagnesemia, replenished. 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 Confusion/disorientation likely from underlying dementia, chronic alcohol abuse may be a factor. Patient takes Seroquel at home indicating her chronic behavioral disorder. folic acid deficiency, level 4.7. Folic acid supplementation started. Exam - Constitutional Vitals: Temp Pulse Resp BP Pulse Ox 98.4 F 108 H 18 106/73 99 02/14/21 15:40 02/14/21 15:40 02/14/21 15:40 02/14/21 15:40 02/14/21 15:40 General appearance: Present: no acute distress, well-nourished, other (Alert but confused) - EENT Eyes: Present: EOM intact ENT: hearing intact, clear oral mucosa - Neck Neck: Present: supple - Respiratory Respiratory effort: normal Respiratory: bilateral: CTA - Cardiovascular Rhythm: regular - Extremities Extremities: No edema - Abdominal General gastrointestinal: Present: soft, tender (Minimal LLQ tenderness with deep palpation), non-distended, normal bowel sounds - Integumentary Integumentary: Absent: rash - Musculoskeletal Musculoskeletal: strength equal bilaterally - Psychiatric Psychiatric: other (calm) - Neurologic Neurologic: other (Alert but chronically disoriented with memory impairment) Plan Activity: advance as tolerated Diet: regular Additional Instructions: Have a follow-up with a neurologist in 2 to 3 weeks Follow up with: DAY PENALOZA MD [Primary Care Provider] - 7 Days BEAN FORRESTER MD [Staff Physician] - 14 Days GIULIA LOVETT MD [Staff Physician] - 10 Days Prescriptions: Ciprofloxacin HCl 500 mg PO BID #10 tablet metroNIDAZOLE [Flagyl TAB] 500 mg PO Q8H #15 tablet Folic Acid [Folvite] 2 mg PO QDAY #30 tablet Potassium Chloride [K-Dur] 10 meq PO QDAY #7 tablet Multivitamin 1 each PO DAILY #30 tablet Sodium Bicarbonate 1,300 mg PO DAILY #7 tablet Thiamine [Vitamin B-1] 100 mg PO QDAY #30 tablet
[2021-02-15] MEDS: metroNIDAZOLE 500 MG TAB PO SCH ×2 (00:03→13:52)
[2021-02-15] MEDS: HEPARIN 5,000 UNIT/1 ML VIAL SUB-Q SCH ×2 (07:00→13:54)
--- NOTE | 2021-02-15 11:09 | Progress Note ---
Assessment and Plan Assessment and plan: Acute colitis/diarrhea. 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 Folic acid deficiency, level 4.7. Folic acid supplementation started. B12 and TSH normal 02/05/2021. CT scan of the abdomen pelvis revealed mild sigmoid colitis. We will start IV antibiotics of Levaquin and Flagyl. Follow-up stool culture and fecal leukocytes. Patient will have repletion of potassium and follow-up BMP later today and in a.m. Continue IV fluid hydration for orthostasis. Magnesium repleted. Anticipate discharge in a.m. 02/06/2021. Patient denies any diarrhea. We'll follow-up stool studies continue IV antibiotics of Levaquin and Flagyl. Patient still has significant hypokalemia. Replete potassium and follow-up BMP. Replete magnesium. Patient remains orthostatic. Continue IV fluid hydration and recheck orthostatic vital signs. 02/07/2021. Potassium improved to 3.2 yesterday. Recheck BMP this morning. Continue to replete potassium and magnesium as needed. Still awaiting stool studies for fecal leukocyte and culture. Continue IV antibiotics of Flagyl and Levaquin. Patient still with significant orthostasis this morning. Continue IV fluid hydration. 02/08/2021: Patient remains alert, verbal but confused/disoriented. The etiology appears to be dementia but acutely encephalopathy cannot rule out. Patient remains afebrile. Does not appear to be septic. She continues to have diarrhea with the severe persistent hypokalemia which is replenished on a daily basis. Discussed with the nursing staff. 02/09/2021: Patient remains pleasantly confused. No behavioral problems like agitation. Will likely from a dementia but acute encephalopathy, rule out. Psychiatry is following. Patient is on Zyprexa. Potassium remains low but seems to be improving. We will continue aggressive potassium replacement along with medicine replacement. Will discontinue IV fluids. Will discontinue antibiotics. Nursing staff reports that she has no diarrhea today. 02/10/2021: She is alert but remains confused/disoriented. Vital signs stable. No diarrhea reported. Patient states she has some pain in the LLQ. Tolerating diet well. Remains on the KCl 80 mg daily for persistent hypokalemia. Seen by GI today, no further work-up needed since symptoms resolving. Anticipating discharge soon. Discussed with the nursing staff and embedded case manager. 02/11/2021: She is alert but remains confused/disoriented. Vital signs stable. No diarrhea reported. Tolerating diet well. Remains on the KCl 80 mg daily for persistent hypokalemia. Oral total bicarb started and nephrology consulted for nongap metabolic acidosis. traffic i manager spoke to several family members today, patient has been alcoholic drinking several alcoholic beverages daily as well as uses prescription narcotics. Patient has been forgetful and confused since weeks. She refused alcohol rehab in the past. Anticipating discharge soon 02/12/2021: Patient remains fully alert with fluent speech and disorientation unchanged. Potassium level is inching up daily KCl 80 mg supplementation. Bicarb slowly coming up oral bicarb supplementation. Nephrology consulted for hypochloremic metabolic acidosis. Neurology consulted. Anticipating discharge soon 02/13/2021: Patient remains pleasantly confused/disoriented and forgetful. Evaluate by neurology, MRI ordered but not yet unrevealing. Potassium continues to rise slowly in the setting KCl 80 mEq daily. Still improving with oral bicarb supplementation. Evaluated by nephrology today and he recommends outpatient follow-up. Anticipating discharge tomorrow afternoon MRI. 02/15/2021: Patient received thiamine 300 mg IV x1, multivitamin daily. Check ammonia level to rule out hepatic encephalopathy. MRI brain showed no significant abnormality History Interval history: No new issues overnight. Hospitalist Physical - Constitutional Vitals: Temp Pulse Resp BP Pulse Ox 97.2 F L 97 H 18 114/62 93 02/15/21 03:58 02/15/21 03:58 02/15/21 03:58 02/15/21 03:58 02/15/21 03:58 General appearance: Present: no acute distress, well-nourished, other (Alert but confused) - EENT Eyes: Present: PERRL, EOM intact ENT: hearing intact, clear oral mucosa, dentition normal - Neck Neck: Present: supple, normal ROM - Respiratory Respiratory effort: normal Respiratory: bilateral: CTA - Cardiovascular Rhythm: regular Heart Sounds: Present: S1 & S2. Absent: gallop, rub - Extremities Extremities: no ischemia, No edema, Full ROM - Abdominal General gastrointestinal: soft, non-tender, non-distended, normal bowel sounds - Integumentary Integumentary: Present: clear, warm, dry - Neurologic Neurologic: CNII-XII intact, moves all extremities HEART Score - HEART Score Troponin: Troponin T < 0.010 ng/mL (0.00-0.029) 02/04/21 20:42 Results - Labs CBC & Chem 7: 02/12/21 04:27 02/14/21 09:37 Labs: Laboratory Last Values WBC 4.2 K/mm3 (4.5-11.0) L 02/12/21 04:27 RBC 3.00 M/mm3 (3.65-5.03) L 02/12/21 04:27 Hgb 9.7 gm/dl (10.1-14.3) L 02/12/21 04:27 Hct 29.8 % (30.3-42.9) L 02/12/21 04:27 MCV 100 fl (79-97) H 02/12/21 04:27 MCH 32 pg (28-32) 02/12/21 04:27 MCHC 33 % (30-34) 02/12/21 04:27 RDW 15.9 % (13.2-15.2) H 02/12/21 04:27 Plt Count 288 K/mm3 (140-440) 02/12/21 04:27 Lymph % (Auto) 41.2 % (13.4-35.0) H 02/12/21 04:27 [place] % (Auto) 10.7 % (0.0-7.3) H 02/12/21 04:27 Eos % (Auto) 2.1 % (0.0-4.3) 02/12/21 04:27 Baso % (Auto) 0.9 % (0.0-1.8) 02/12/21 04:27 Lymph # (Auto) 1.7 K/mm3 (1.2-5.4) 02/12/21 04:27 [place] # (Auto) 0.4 K/mm3 (0.0-0.8) 02/12/21 04:27 Eos # (Auto) 0.1 K/mm3 (0.0-0.4) 02/12/21 04:27 Baso # (Auto) 0.0 K/mm3 (0.0-0.1) 02/12/21 04:27 Add Manual Diff Complete 02/10/21 05:12 Total Counted 100 02/10/21 05:12 Seg Neutrophils % 45.1 % (40.0-70.0) 02/12/21 04:27 Seg Neuts % (Manual) 66.0 % (40.0-70.0) 02/10/21 05:12 Band Neutrophils % 5.0 % 02/10/21 05:12 Lymphocytes % (Manual) 27.0 % (13.4-35.0) 02/10/21 05:12 Monocytes % (Manual) 1.0 % (0.0-7.3) 02/10/21 05:12 Eosinophils % (Manual) 3.0 % (0.0-4.3) 02/08/21 04:36 Basophils % (Manual) 1.0 % (0.0-1.8) 02/10/21 05:12 Nucleated RBC % Not Reportable 02/10/21 05:12 Seg Neutrophils # 1.9 K/mm3 (1.8-7.7) 02/12/21 04:27 Seg Neutrophils # Man 2.3 K/mm3 (1.8-7.7) 02/10/21 05:12 Band Neutrophils # 0.2 K/mm3 02/10/21 05:12 Lymphocytes # (Manual) 0.9 K/mm3 (1.2-5.4) L 02/10/21 05:12 Abs React Lymphs (Man) 0.0 K/mm3 02/10/21 05:12 Monocytes # (Manual) 0.0 K/mm3 (0.0-0.8) 02/10/21 05:12 Eosinophils # (Manual) 0.0 K/mm3 (0.0-0.4) 02/10/21 05:12 Basophils # (Manual) 0.0 K/mm3 (0.0-0.1) 02/10/21 05:12 Metamyelocytes # 0.0 K/mm3 02/10/21 05:12 Myelocytes # 0.0 K/mm3 02/10/21 05:12 Promyelocytes # 0.0 K/mm3 02/10/21 05:12 Blast Cells # 0.0 K/mm3 02/10/21 05:12 WBC Morphology Not Reportable 02/10/21 05:12 Hypersegmented Neuts Not Reportable 02/10/21 05:12 Hyposegmented Neuts Not Reportable 02/10/21 05:12 Hypogranular Neuts Not Reportable 02/10/21 05:12 Smudge Cells Not Reportable 02/10/21 05:12 Toxic Granulation Not Reportable 02/10/21 05:12 Toxic Vacuolation Not Reportable 02/10/21 05:12 Dohle Bodies Not Reportable 02/10/21 05:12 Pelger-Huet Anomaly Not Reportable 02/10/21 05:12 Yadira Rods Not Reportable 02/10/21 05:12 Platelet Estimate Consistent w auto 02/10/21 05:12 Clumped Platelets Not Reportable 02/10/21 05:12 Plt Clumps, EDTA Not Reportable 02/10/21 05:12 Large Platelets Not Reportable 02/10/21 05:12 Giant Platelets Not Reportable 02/10/21 05:12 Platelet Satelliting Not Reportable 02/10/21 05:12 Plt Morphology Comment Not Reportable 02/10/21 05:12 RBC Morphology Not Reportable 02/10/21 05:12 Dimorphic RBCs Not Reportable 02/10/21 05:12 Polychromasia Not Reportable 02/10/21 05:12 Hypochromasia Not Reportable 02/10/21 05:12 Poikilocytosis Not Reportable 02/10/21 05:12 Anisocytosis Not Reportable 02/10/21 05:12 Microcytosis Not Reportable 02/10/21 05:12 Macrocytosis Not Reportable 02/10/21 05:12 Spherocytes Not Reportable 02/10/21 05:12 Pappenheimer Bodies Not Reportable 02/10/21 05:12 Sickle Cells Not Reportable 02/10/21 05:12 Target Cells Not Reportable 02/10/21 05:12 Tear Drop Cells Not Reportable 02/10/21 05:12 Ovalocytes Not Reportable 02/10/21 05:12 Helmet Cells Not Reportable 02/10/21 05:12 [place] Bodies Not Reportable 02/10/21 05:12 [place] Rings Not Reportable 02/10/21 05:12 [place] Cells Not Reportable 02/10/21 05:12 Bite Cells Not Reportable 02/10/21 05:12 Crenated Cell Not Reportable 02/10/21 05:12 Elliptocytes Not Reportable 02/10/21 05:12 Acanthocytes (Spur) Not Reportable 02/10/21 05:12 Rouleaux Not Reportable 02/10/21 05:12 Hemoglobin C Crystals Not Reportable 02/10/21 05:12 Schistocytes Not Reportable 02/10/21 05:12 Malaria parasites Not Reportable 02/10/21 05:12 [place] Bodies Not Reportable 02/10/21 05:12 Hem Pathologist Commnt No 02/10/21 05:12 PT 13.5 Sec. (12.2-14.9) 02/05/21 05:21 INR 0.93 (0.87-1.13) 02/05/21 05:21 Sodium 139 mmol/L (137-145) 02/14/21 09:37 Potassium 4.5 mmol/L (3.6-5.0) 02/14/21 09:37 Chloride 104.9 mmol/L (98-107) 02/14/21 09:37 Carbon Dioxide 21 mmol/L (22-30) L 02/14/21 09:37 Anion Gap 18 mmol/L 02/14/21 09:37 BUN < 1 mg/dL (7-17) L 02/14/21 09:37 Creatinine 0.5 mg/dL (0.6-1.2) L 02/14/21 09:37 Estimated GFR > 60 ml/min 02/14/21 09:37 BUN/Creatinine Ratio 2 % 02/14/21 09:37 Glucose 199 mg/dL (65-100) H 02/14/21 09:37 Calcium 8.7 mg/dL (8.4-10.2) 02/14/21 09:37 Phosphorus 3.00 mg/dL (2.5-4.5) 02/04/21 20:42 Magnesium 1.80 mg/dL (1.7-2.3) 02/14/21 09:37 Total Bilirubin 0.60 mg/dL (0.1-1.2) 02/12/21 04:27 AST 54 units/L (5-40) H 02/12/21 04:27 ALT 15 units/L (7-56) 02/12/21 04:27 Alkaline Phosphatase 88 units/L (35-129) 02/12/21 04:27 Troponin T < 0.010 ng/mL (0.00-0.029) 02/04/21 20:42 Total Protein 5.3 g/dL (6.3-8.2) L 02/12/21 04:27 Albumin 2.0 g/dL (3.9-5) L 02/12/21 04:27 Albumin/Globulin Ratio 0.6 % 02/12/21 04:27 Vitamin B12 > 2000 pg/mL (211-911) H 02/11/21 19:13 Folate 4.70 ng/mL (7.3-26.0) L 02/11/21 19:13 TSH 1.570 mlU/mL (0.270-4.200) 02/11/21 19:13 Urine Color Straw (Yellow) 02/13/21 Unknown Urine Turbidity Clear (Clear) 02/13/21 Unknown Urine pH 6.0 (5.0-7.0) 02/13/21 Unknown Ur Specific [place] 1.001 (1.003-1.030) L 02/13/21 Unknown Urine Protein <15 mg/dl mg/dL (Negative) 02/13/21 Unknown Urine Glucose (UA) Neg mg/dL (Negative) 02/13/21 Unknown Urine Ketones Neg mg/dL (Negative) 02/13/21 Unknown Urine Blood Neg (Negative) 02/13/21 Unknown Urine Nitrite Neg (Negative) 02/13/21 Unknown Urine Bilirubin Neg (Negative) 02/13/21 Unknown Urine Urobilinogen < 2.0 mg/dL (<2.0) 02/13/21 Unknown Ur Leukocyte Esterase Neg (Negative) 02/13/21 Unknown Urine WBC (Auto) < 1.0 /HPF (0.0-6.0) 02/13/21 Unknown Urine RBC (Auto) 1.0 /HPF (0.0-6.0) 02/13/21 Unknown Urine Bacteria (Auto) 1+ /HPF (Negative) 02/13/21 Unknown Salicylates < 0.3 mg/dL (2.8-20.0) L 02/04/21 22:29 Acetaminophen 5.0 ug/mL (10.0-30.0) L 02/04/21 22:29 Plasma/Serum Alcohol < 0.01 % (0-0.07) 02/04/21 22:29 Syphilis IgG Antibody Nonreactive (NonReactive) 02/11/21 19:13 Coronavirus (PCR) Negative (Negative) 02/07/21 Unknown [place]/IV: Voiding Method Toilet Active Medications - Current Medications Current Medications: Generic Name Dose Route Start Last Admin Trade Name Freq PRN Reason Stop Dose Admin Acetaminophen 650 mg 02/04/21 23:44 02/12/21 22:02 Acetaminophen 325 Mg Tab PO 650 mg Q4H PRN Administration Pain MILD(1-3)/Fever >100.5/SAENZ Folic Acid 2 mg 02/13/21 10:00 02/14/21 10:01 Folic Acid 1 Mg Tab PO 2 mg QDAY [place] Administration Guaifenesin 10 ml 02/05/21 20:49 02/14/21 00:07 Guaifenesin Dm 200/20 Mg Oral Liqd 10 Ml PO 10 ml Q4H PRN Administration Cough Heparin Sodium (Porcine) 5,000 unit 02/05/21 06:00 02/15/21 07:00 Heparin 5,000 Unit/1 Ml Vial SUB-Q 5,000 unit Q8HR [place] Administration Levofloxacin 500 mg 02/12/21 10:00 02/14/21 10:01 Levofloxacin 500 Mg Tab PO 500 mg Q24HR [place] Administration Protocol Melatonin 5 mg 02/07/21 00:58 02/14/21 00:07 Melatonin 5 Mg Tab PO 5 mg QHS PRN Administration Sleep Metronidazole 500 mg 02/12/21 08:00 02/15/21 00:03 Metronidazole 500 Mg Tab PO Not Given Q8H [place] Protocol Multivitamins 1 each 02/13/21 10:00 02/14/21 10:01 Multivitamins ,Therapeutic Tab PO 1 each QDAY [place] Administration Olanzapine 2.5 mg 02/13/21 11:00 02/14/21 10:00 Olanzapine 2.5 Mg Tab PO 2.5 mg QDAY [place] Administration Ondansetron HCl 4 mg 02/04/21 23:44 Ondansetron 4 Mg/2 Ml Inj IV Q8H PRN Nausea And Vomiting Sodium Bicarbonate 1,300 mg 02/11/21 22:00 02/14/21 22:03 Sodium Bicarbonate 650 Mg Tab PO Not Given BID [place] Sodium Chloride 10 ml 02/05/21 10:00 02/14/21 22:03 Sodium Chloride 0.9% 10 Ml Flush Syringe IV Not Given BID [place] Sodium Chloride 10 ml 02/04/21 23:44 02/06/21 06:23 Sodium Chloride 0.9% 10 Ml Flush Syringe IV 10 ml PRN PRN Administration LINE FLUSH Thiamine HCl 100 mg 02/13/21 10:00 02/14/21 10:01 Thiamine 100 Mg Tab PO 100 mg QDAY [place] Administration Nutrition/Malnutrition Assess - Dietary Evaluation Nutrition/Malnutrition Findings: Nutrition Notes Start: 02/14/21 12:40 Freq: Status: Active Protocol: Document 02/14/21 12:40 GB (Rec: 02/14/21 12:49 GB [id number]) Nutrition Notes Need for Assessment generated from: LOS Initial or Follow up Assessment Current Diagnosis Hypertension Other Pertinent Diagnosis Diarrhea, metaboic acidosis, ETOH abuse, Dementia Current Diet Regular Labs/Tests 02/13: glucose 116, BUN <1, creatinine 0.4, Na 135, AST 54 Pertinent Medications Thiamine, Folic acid, multivitamin, KCl Height 5 ft 4 in Weight 61.4 kg [place] Body Weight (kg) 54.54 BMI 23.2 Weight change and time frame 02/04: 70.3kg 02/14: 61.4kg change of -8.9kg for -12.6% significance. Recommend reweigh to confirm weight ( strike estimated wts) Weight Status Appropriate Subjective/Other Information LOS PO intake of meals recorded at 100%. Per MD note: discharge anticipated soon Percent of energy/protein needs met: 100% Burn Absent Trauma Absent GI Symptoms None Food Allergy No Skin Integrity/Comment No complications reported Current % PO Good (75-100%) Minimum of two criteria No #1 Nutrition Diagnosis No nutrition diagnosis at this time Etiology diarrhea As Evidenced by Signs and Symptoms PO of meals 100%, reported diarrhea resolved, no skin breakdown reported Is patient on ventilator? No Is Patient Ambulatory and/or Out of Bed Yes REE-([place]-St. Jeor-ambulatory/OOB) [ 1571.700 [id number]] Kcal/Kg value to use for calculation 25 Approximate Energy Requirements Using 1535 kcal/Kg Calculation Used for Recommendations Kcal/kg Additional Notes Protein: 0.8-1 g/kg @ 61k -61kg Fluids: 1ml/kcal or per MD Nutrition Intervention Change Diet Order: Continue Nutrition Support: n/a Add Supplement/Snack (indicate name/kcal n/a /protein ) Follow-Up By: 03/16/21 Revisit per MD consult or patient Sign Off request:
[2021-02-15 12:13] VITALS: BP 112/79
[2021-02-15] MEDS: THIAMINE 100 MG TAB PO SCH (13:44)
[2021-02-15] MEDS: levoFLOXacin 500 MG TAB PO SCH (13:45)
[2021-02-15] MEDS: MULTIVITAMINS ,THERAPEUTIC TAB PO SCH (13:46)
[2021-02-15] MEDS: guaiFENesin DM 200/20 MG ORAL LIQD 10 ML PO PRN ×2 (13:47→13:52)
[2021-02-15] MEDS: FOLIC ACID 1 MG TAB PO SCH (13:50)
== END 2021-02-15 17:56 | disposition home or self-care (01) | DRG 392 ==
LOC: ED 18:24 → 4A 02-05 02:19 → OBSVTOIN 02-07 09:30
PROVIDERS: ADMIT Internal Medicine Geriatric Medicine; ATTEND Hospitalist
DX: K52.9 Noninfective gastroenteritis and colitis, unspecified (principal); E87.2 Acidosis; I95.1 Orthostatic hypotension; Z20.822 Contact with and (suspected) exposure to COVID-19; E87.6 Hypokalemia; E83.42 Hypomagnesemia; F39 Unspecified mood [affective] disorder; F10.10 Alcohol abuse, uncomplicated; E87.8 Other disorders of electrolyte and fluid balance, not elsewhere classified
CPT/HCPCS: 36415; 70450; 70553; 71045; 74177; 80048; 80053; 80320; 81001; 82140; 82607; 82747; 83735; 84100; 84443; 84484; 85007; 85025; 85610; 86592; 87045; 93005; G0378; A9575; G0480; J1644; J1956; J2270; J3475; J3480; J7030; Q9967; U0003